=== PATIENT | female | born 1985 | race Caucasian/White ===

== ENCOUNTER 2020-09-16 11:59 | Outpatient (REF) | payer MEDICAID, SELFPAY | END 2020-09-16 12:00 | disposition home or self-care (01) | LOC: HO.LAB 11:59 | PROVIDERS: Visit Provider Internal Medicine | DX: Z20.822 Contact with and (suspected) exposure to COVID-19 (principal) | CPT/HCPCS: 36415; C9803; U0003 ==

== ENCOUNTER 2020-12-20 12:18 | Outpatient (REF) | payer MEDICAID, SELFPAY | END 2020-12-20 12:19 | disposition home or self-care (01) | LOC: HO.LAB 12:18 | PROVIDERS: Visit Provider Internal Medicine | DX: Z20.822 Contact with and (suspected) exposure to COVID-19 (principal) | CPT/HCPCS: C9803; U0003; U0005 ==

== ENCOUNTER 2023-08-23 13:58 | Outpatient (REF) | payer MEDICAID, SELFPAY ==
[2023-08-23 18:36] LABS: Influenza A PCR POSITIVE (Negative); Influenza B PCR NEGATIVE (Negative); Resp Syncy Virus RNA Qual PCR NEGATIVE (Negative); SARS COV2 PCR INHOUSE NEGATIVE (Negative)
== END 2023-08-23 13:59 | disposition home or self-care (01) ==
LOC: HO.CHCLNP 13:58
PROVIDERS: Visit Provider Family Medicine
DX: J11.1 Influenza due to unidentified influenza virus with other respiratory manifestations (principal); Z11.52 Encounter for screening for COVID-19
CPT/HCPCS: 0241U

== ENCOUNTER 2023-11-07 21:57 | Outpatient (REF) | payer MEDICAID, SELFPAY ==
[2023-11-08 04:40] LABS: Influenza A PCR NEGATIVE (Negative); Influenza B PCR NEGATIVE (Negative); Resp Syncy Virus RNA Qual PCR NEGATIVE (Negative); SARS COV2 PCR INHOUSE NEGATIVE (Negative)
== END 2023-11-07 21:58 | disposition home or self-care (01) ==
LOC: HO.HHCLNP 21:57
PROVIDERS: Visit Provider Emergency Medicine
DX: T78.3XXA Angioneurotic edema, initial encounter (principal); X58.XXXA Exposure to other specified factors, initial encounter; Y93.9 Activity, unspecified; Y92.9 Unspecified place or not applicable; Y99.9 Unspecified external cause status; Z11.52 Encounter for screening for COVID-19; Z20.828 Contact with and (suspected) exposure to other viral communicable diseases
CPT/HCPCS: 0241U; 87070

== ENCOUNTER 2023-12-11 11:06 | Outpatient (REF) | payer MEDICAID, SELFPAY ==
[2023-12-11 18:11] LABS: Alanine Aminotransferase 14 U/L (0-31); Albumin Level 4.3 g/dL (3.5-5.0); Alkaline Phosphatase 68 U/L (39-117); Anion Gap 9 (12-20); Aspartate Amino Transferase 15 U/L (5-31); Bilirubin Direct 0.1 mg/dL (0.0-0.5); Bilirubin Total 0.4 mg/dL (0.0-1.0); Blood Urea Nitrogen 15 mg/dL (9-16); Carbon Dioxide 27 mmol/L (22-29); Chloride 108 mmol/L (96-108); Cholesterol 157 mg/dL (<200); Estimated Glomerular Filt Rate > 60; Glucose Random 94 mg/dL (60-115); HDL Cholesterol 35 mg/dL (>40); LDL Cholesterol Calculated 107 mg/dL (<100); Potassium 3.6 mmol/L (3.3-5.1); Sodium 140 mmol/L (135-145); Thyroid Stimulating Hormone 1.75 uIU/mL (0.32-4.0); Triglycerides 75 mg/dL (<150)
[2023-12-12 08:28] LABS: ~HepC Num1 0.07 S/CO (0.00-0.79); ~Hepatitis C Antibody Nonreactive (Nonreactive)
[2023-12-14 21:13] LABS: HIV RNA PCR Qn Copies Not Detected Copies/mL; HIV RNA PCR Qn Log Copies Not Detected Log cps/mL
== END 2023-12-11 11:07 | disposition home or self-care (01) ==
LOC: HO.CHCLDS 11:06
PROVIDERS: Visit Provider Student in an Organized Health Care Education/Training Program
DX: Z00.00 Encounter for general adult medical examination without abnormal findings (principal); Z11.4 Encounter for screening for human immunodeficiency virus [HIV]; F41.9 Anxiety disorder, unspecified; F32.A Depression, unspecified
CPT/HCPCS: 36415; 80048; 80061; 80076; 84443; 86803; 87536; 87900

== ENCOUNTER 2024-10-06 11:50 | Outpatient (REF) | payer MEDICAID, SELFPAY ==
--- OUTSIDE RECORDS SUMMARY | 2024-10-06 13:05 | XMS_ITS | Encounter Summary ---
Author Organization [facility] Address [address] [place] [address] Care Team Providers Care Director Trust Name Role Phone Flavia Haile MD Primary Care Provider [phone] Reason for Visit * Auth/Cert (Routine) Specialty Diagnoses / Procedures Referred By Vee harrison Referred To Contact Diagnoses Mass of lower inner quadrant of right breast Fibroadenoma, right Mass of lower inner quadrant of right breast, Fibroadenoma, right Procedures MS EXC CYST/ABERRANT BREAST TISSUE OPEN MALE/FEMALE 1/> LESION Right breast wide local excision of palpable mass Herminio Richards MD [address] [place] [id number] Phone: tel: fax: [facility] [place] [address] [place] [phone] Phone: tel: Referral ID Status Reason Start Date Expiration Date Visits Re quested Visits Authorized [id number] 1 1 Encounter Details Date Type Department Care Team (Latest Contact Info) Description 09/17/2024 6:17 AM EST - 09/17/2024 10:45 AM EST Hospital Encounter [facility] [place] [address] [place] [phone] Herminio Richards MD [address] [place] [phone] Mass of lower inner quadrant of right breast Discharge Disposition: Home or Self Care Social History Tobacco Use Types Packs/Day Years Used Date Smoking Tobacco: Every Day Cigarettes 0.5 12.2 Started: 08/07/2012 Alcohol Use Standard Drinks/Week Comments Yes 0 (1 standard drink = 0.6 oz pur e alcohol) Socially, occasionally Interpersonal Safety Answer Date Record ed Physical Abuse 09/17/2024 Verbal Abuse 09/17/2024 Comments No Sex and Gender Information Value Date Recorded Sex Assigned at Female 09/08/2024 10:45 AM EST Legal Sex Female 5:12 PM EST Gender Identity Female 09/08/2024 10:45 AM EST Sexual Orientation Straight 09/08/2024 10 :45 AM EST documented as of this encounter Last Filed Vital Signs Vital Sign Reading Time Taken Comments Blood Pressure 110/71 09/17/2024 9:50 AM EST Pulse 64 09/17/2024 9:50 AM EST Temperature 36.5 ??C (97.7 ??F) 09/17/2024 9:50 AM ES T Respiratory Rate 16 09/17/2024 9:50 AM EST Oxygen Saturation 100% 09/17/2024 9:50 AM EST Inhaled Oxygen Concentration - - Weight 77.1 kg (170 lb) 08/26/2024 12:00 PM EST Height 160 cm (5' 3 ) 08/26/2024 12:00 PM EST Body Mass Index 30.11 08/26/2024 12:00 PM EST documented in this encounter Discharge Instructions * Discharge Instructions* Herminio Richards MD - 09/17/2024 9:24 AM EST Instructions After Breast Surgery: 1. Remove the outer clear Tegaderm dressing and the gauze after 48 hours but leave the Steri-Stripsat the incision until your scheduled postoperative appointment. 2. You may shower tomorrow with the dressing in place. Do not take a tub bath for 1 week. 3. For pain, take an [id number]-[id number] pain medication or fill prescriptions and take as directed. 4. Wear your bra for comfort for the first 48 hours as needed. It is normal for the area of the surgery to get bruised and/or hard. You may apply ice and heat for comfort as needed. 5. If any increase in pain, swelling, redness or other problem, please call . Follow-up for your appointment with Dr. Herminio Richards as previously scheduled. [facility] Herminio Richards MD [facility] [address] [place] [address] *Enter through [facility] and follow signs to Breast Center If you are unable to keep your appointment(s), please contact that office to reschedule. * Attachments The following attachments cannot be sent through Care Everywhere. * Breast Biopsy: Open: Post-op (Estonian) * General Anesthesia (Estonian) documented in this encounter Medications at Time of Discharge melatonin 10 mg capsule Take 1 capsule (10 mg total) by mouth at bedtime. 06/06/2024 buPROPion SR (WELLBUTRIN SR) 100 mg 12 hr tablet Take 150 mg by mouth 2 (two) times a day. Drysol Dab-O-Matic 20 % external solution Apply 2 mL topically at bedtime. 02/05/2024 FLUoxetine (PROzac) 10 mg capsule Take 1 capsule (10 mg total) by mouth 1 (one) time each day. 06/03/2024 levocetirizine (XYZAL) 5 mg tablet Take 1 tablet (5 mg total) by mouth 1 (one) time each day in the evening. acetaminophen (Tylenol Extra Strength) 500 mg tablet Take 1 tablet (500 mg total) by mouth every 6 (six) hours if needed for mild pain for up to 10 days. 40 tablet 09/17/2024 5 ibuprofen (ADVIL,MOTRIN) 400 mg tablet Take 1 tablet (400 mg total) by mouth every 6 (six) hours if needed for moderate pain for up to 10 days. 40 each 09/17/2024 5 documented as of this encounter Ordered Prescriptions Prescription Sig Dispense Quantity Refills Last Filled Start Date End Date ibuprofen (ADVIL,MOTRIN) 400 mg tablet Take 1 tablet (400 mg total) by mouth every 6 (six) hours if needed for moderate pain for up to 10 days. 40 each 09/17/2024 5 acetaminophen (Tylenol Extra Strength) 500 mg tablet Take 1 tablet (500 mg total) by mouth every 6 (six) hours if needed for mild pain for up to 10 days. 40 tablet 09/17/2024 5 documented in this encounter Discharge Disposition Disposition Code Departure Means Destination Comment s Home or Self Care documented in this encounter Progress Notes * Helena Echevarria RN - 09/17/2024 9:56 AM EST Ice applied documented in this encounter H&P Notes * Herminio Richards MD - 09/17/2024 7:27 AM EST CHIEF COMPLAINT: Right breast mass, biopsy demonstrating fibroadenoma HISTORY OF PRESENT ILLNESS: Ms. Evens Marcial is a 39 y.o. female who presents for surgical management of enlarging right breast mass with biopsy demonstrating fibroadenoma. The patient first appreciated a palpable lump in the lower inner right breast approximately October 2022. She presented to her primary care provider and diagnostic imaging was performed. Diagnostic mammogram on 01/11/2023 revealed an approximately 4 cm round mass with circumscribed margins at the 4 o'clock position of the right breast accounting for the palpable lump. This was new since prior mammography in 2018. Targeted ultrasound characterized a 3.9 x 1.6 x 3.3 cm round, solid mass with circumscribed margins at 4:00, 4 cm from the nipple. The mass was mildly heterogeneous, nearly isoechoic to fat lobules, and exhibited parallel orientation without significant posterior changes. The imaging features suggested a fibroadenoma, with Phyllodes tumor and ductal carcinoma also incl uded in the differential diagnosis. The patient had ultrasound-guided percutaneous biopsy of the mass on 01/17/2023. A wing tissue marker was placed at the biopsy site. 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 6-month follow-up ultrasound was recommended to evaluate for growth of the lesion. The patient appreciated an increase in the size of the palpable mass. She return for diagnostic mammogram and breast ultrasound on 02/26/2024. The mass had increased in size significantly. On ultrasound, the mass now measured 6 x 5.9 x 2.3 cm. There was a small cystic component which had also increased. There was vascularity seen within the lesion and no significant posterior changes. Given the significant increase in size of the breast mass, surgical excision was recommended. The patient is quite worried about the increase in size of the mass. She has discomfort, especiallywith her periods. She denies any skin changes, retraction of the skin, nipple discharge. Risk factors: -0-0-3 Menarche age 15 First live age 17 Regular menses, LMP July 2024 The patient did breast-feed her children Hormonal contraception with Mirena IUD currently, placed 6 years ago. ROS: As per HPI. The patient endorses sinus problems and insomnia. Remainder of comprehensive reiview of systems is negative as per intake sheet. PROBLEM LIST: Patient Active Problem List Diagnosis Date Noted Mass of lower inner quadrant of right breast 08/07/2024 Fibroadenoma, right 08/07/2024 PAST MEDICAL HISTORY: Medical History Past Medical History: Diagnosis Date Allergic sinusitis Anxiety Insomnia Tobacco dependence PAST SURGICAL HISTORY: Surgical History Past Surgical History: Procedure Laterality Date SECTION 2011 SOCIAL HISTORY: Social History Tobacco Use Smoking status: Every Day Current packs/day: 0.50 Average packs/day: 0.5 packs/day for 12.0 years (6.0 ttl pk-yrs) Types: Cigarettes Start date: 08/07/2012 Smokeless tobacco: Not on file Substance Use Topics Alcohol use: Yes Comment: Socially, occasionally FAMILY HISTORY: Family History Family History Problem Relation Name Age of Onset Colon cancer Paternal Grandfather Colon cancer Father's Sister ACTIVE MEDICATIONS: Medication list was reviewed and updated with the patient. No current facility-administered medications on file prior to encounter. Current Outpatient Medications on File Prior to Encounter Medication Sig Dispense Refill chlorhexidine (Hibiclens) 4 % external liquid Apply externally. Follow pre- operative instructions from doctor's office. Disp: 1 Bottle. 120 mL 0 melatonin 10 mg capsule Take 1 capsule (10 mg total) by mouth at bedtime. buPROPion SR (WELLBUTRIN SR) 100 mg 12 hr tablet Take 150 mg by mouth 2 (two) times a day. Drysol Dab-O-Matic 20 % external solution Apply 2 mL topically at bedtime. FLUoxetine (PROzac) 10 mg capsule Take 1 capsule (10 mg total) by mouth 1 (one) time each day. levocetirizine (XYZAL) 5 mg tablet Take 1 tablet (5 mg total) by mouth 1 (one) time each day in theening. ALLERGIES: Allergies No Known Allergies PHYSICAL EXAM: Visit Vitals BP 107/75 Pulse 79 Temp 36.6 ??C (97.9 ??F) Resp 16 Ht 1.6 m (63 ) Wt 77.1 kg (170 lb) LMP 08/27/2024 SpO2 99% BMI 30.11 kg/m?? OB Status Having periods Smoking Status Every Day BSA 1.8 m?? GENERAL: Awake, alert, and in no acute distress. HEAD: Normocephalic, atraumatic. EYES: Pupils equal and round. Anicteric sclera. Conjunctiva normal. EXTREMITIES: Warm, well-perfused. No edema. SKIN: Skin color, texture, turgor normal. Warm, no lesion or rash noted on visible skin. NEURO: Awake, alert and oriented. Cranial nerves are intact. Motor and sensory grossly intact. BREAST (FEMALE): Examined in the seated and upright positions. Breast are symmetric. LEFT: Examination of the left breast, nipple, areola and axilla are without abnormality. There are no palpable masses, nodules, skin changes, nipple discharge, or dimpling. RIGHT: Examination of the right breast notable for 6 well circumscribed mass at 4:00, 5 cm FN. The mass is firm, mobile, slightly tender. The nipple, areola and axilla are without abnormality. There are no skin changes, nipple discharge, or dimpling. LABS: Lab results, as listed below, were reviewed and discussed with the patient. 01/18/2023 Right breast, 4 o'clock, 4 cm from nipple, wing clip, ultrasound guided core biopsy: - FIBROADENOMA - No atypia or malignancy identified Lauren Tobar M.D. , Pathologist (Case electronically signed 01 18 2023) IMAGING: The following images were personally reviewed, including reports and associated films. Findings were discussed with the patient. [facility] - 02/26/24 - 1410 Report Status:Signed EXAM: [facility] EXAM DATE AND TIME: 02/26/2024 2:11 PM HISTORY: Patient states increase in size of previously biopsied fibroadenoma right breast. COMPARISON: 01/11/23, 12/23/18; right breast ultrasounds 01/17/23 (biopsy procedure), 01/11/23 TECHNIQUE: Bilateral digital breast tomosynthesis was performed in the CC and MLO projections. Computer aided detection with iCAPaomianba.[employer] 7.2-H and Qwiki 3D 3.1 was employed. Targeted ultrasound of the right breast was also performed, reported separately. TISSUE DENSITY: c: The breasts are heterogeneously dense, which may obscure small masses. FINDINGS: The previously biopsied fibroadenoma in the lower inner quadrant of the right breast contains a biopsy marker now and has increased in size to 5 x 6 x 5 cm compared to 4 x 4.5 x 3 cm in 2022. Targeted ultrasound confirms a significant increase in size of the solid, previously biopsied mass in the lower inner quadrant. No dominant mass or asymmetry is seen in the left breast. No suspicious grouped microcalcifications or areas of architectural distortion are seen. The skin and vascularity are unremarkable. IMPRESSION: 1. Significant increase in size of the previous study biopsied fibroadenoma in the lower inner quadrant of the right breast since 2022. Surgical referral for consideration of excision of this lesion is recommended. 2. Stable mammographic appearance of the left breast. No evidence of malignancy is seen. The findings and recommendations were discussed with the patient at the time of interpretation on 02/26/24. With the patient's consent, her contact information was forwarded to the [facility] nurse navigator to facilitate a surgical appointment. BI-RADS: Category 4: Suspicious RECOMMENDATION(S): 1: Surgical excision recommended RIGHT Dictating Physician: CHANDRIKA MEYERS MD Electronically Signed by: CHANDRIKA MEYERS MD Dic Date/Time: 02/26/24 1336 Sign date/Time: 02/26/24 1413 US Breast Uni Limited RT - 02/26/24 - Report Status:Signed History: Increase in size of the previously biopsied fibroadenoma right breast. Comparison: Right breast ultrasound 01/17/23 Findings: High resolution real-time imaging of the right breast was performed, targeted to the previously biopsied fibroadenoma at 4:00, 4 cm from the nipple. The solid mass with circumscribed, macrolobulated margins previously biopsied has increased significantly in size, now measuring 6.0 x 5.9 x 2.3 cm (4.1 x 3.8 x 1.7 cm in 2022. There is a small cystic component which has also increased. Vascularity is seen within the lesion by Doppler analysis. There are no significant posterior changes. Impression: Significant increase in size of a previously biopsied fibroadenoma in the lower inner quadrant of the right breast. Surgical referral for consideration of excision of this lesion is recommended. The findings and recommendations were discussed with the patient at the time of interpretation on 02/26/24. With her consent, her contact information was forwarded to the [facility] nurse navigator to facilitate a surgical appointment. BI-RADS 4: Suspicious Abnormality - Biopsy Should Be Considered [id number] Dictating Physician: CHANDRIKA MEYERS MD Electronically Signed by: CHANDRIKA MEYERS MD Dic Date/Time: 02/26/24 1408 Sign date/Time: 02/26/24 1411 [facility] - 01/11/23 - 1514 EXAM: [facility] EXAM DATE AND TIME: 01/11/2023 1:50 PM HISTORY: Palpable lump and pain 4:00 right breast. COMPARISON: 12/23/18 ([facility], [place], [place]) TECHNIQUE: CC and MLO views of both breasts were obtained using full field digital mammography. Bilateral digital breast tomosynthesis was performed in the MLO projection. Computer aided detection with Billiboxok 7.2-H and Qwiki 3D 3.1 was employed. Targeted right breast ultrasound was also performed, reported separately. TISSUE DENSITY: d: The breasts are extremely dense, which lowers the sensitivity of mammography. FINDINGS: Accounting for the palpable lump in the posterior 4:00 position of the right breast is an approximately 4 cm round mass with circumscribed margins, new from the previous study. No associated microcalcifications are seen. Targeted ultrasound confirms a solid mass, with features suggestive of a fibroadenoma, with phyllodes tumor and ductal carcinoma also included in the differential diagnosis. No dominant mass or asymmetry is seen in the left breast. No grouped microcalcifications or areas of architectural distortion are seen in either breast. The skin and vascularity are unremarkable. IMPRESSION: 1. 4 cm solid right breast mass, indeterminate, for which ultrasound-guided core biopsy is recommended. 2. Stable mammographic appearance of the left breast. No evidence of malignancy is seen. The findings and recommendations were discussed with the patient at the time of interpretation on 01/11/23. The biopsy procedure was scheduled. BI-RADS: Category 4: Suspicious RECOMMENDATION(S): 1: Needle biopsy recommended RIGHT [id number], [id number] Dictating Physician: CHANDRIKA MEYERS MD Electronically Signed by: CHANDRIKA MEYERS MD Dic Date/Time: 01/11/23 1501 Sign date/Time: 01/11/23 1518 US Breast Uni Limited RT - 01/11/23 - History: Palpable lump right breast for 2 months. Mammography reveals an approximately 4 cm round mass with circumscribed margins, new from 2019. z Findings: High resolution real-time imaging of the right breast was performed, targeted to the area of clinical concern as instructed by the patient. Accounting for the palpable lump, and the mammographic findings, is a 3.9 x 1.6 x 3.3 cm round, solid mass with circumscribed margins at 4:00, 4 cm from the nipple. The mass is very mildly heterogeneous, nearly isoechoic to fat lobules, at exhibits parallel orientation, and is without significant posterior changes. There is minimal internal vascularity by Doppler analysis. The imaging features suggest a fibroadenoma, with phyllodes tumor and ductal carcinoma also included in the differential diagnosis. Impression: 4 cm circumscribed solid mass in the 4:00 position of the right breast, accounting for the palpable and mammographic findings, indeterminate, for which ultrasound-guided core biopsy is recommended. The findings and recommendations were discussed with the patient at the time of interpretation on 01/11/23. The biopsy procedure was scheduled. BI-RADS 4: Suspicious Abnormality - Biopsy Should Be Considered [id number] Dictating Physician: CHANDRIKA MEYERS MD Electronically Signed by: CHANDRIKA MEYERS MD Dic Date/Time: 01/11/23 1513 Sign date/Time: 01/11/23 1517 US Bx Brst Perc 1st Lesion - 01/17/23 - 1014 HISTORY: Indeterminate 4 cm solid right breast mass. COMPARISON: Right breast ultrasound 01/11/23 FINDINGS: Note: This exam was performed with the assistance of a mashpee language path. Informed consent was obtained from the patient for ultrasound guided core biopsy of a known right breast mass. High resolution real time imaging of the right breast confirms a circumscribed 4.1 x 3.8 x 1.7 cm solid, circumscribed round mass at 4:00, 4 cm from the nipple. The right breast was marked and a timeout procedure was performed. The right breast was cleansed with Betadine and anesthetized with 2% lidocaine buffered with sodium bicarbonate. A small skin incision was made with a scalpel. Using real-time ultrasound guidance, a 12-gauge vacuum-assisted core biopsy needle was advanced to the edge of the lesion and fired. The retrieved specimen was placed immediately into formalin. A small metallic tissue marker (wing) was placed into the residual mass using real-time ultrasound guidance. Hemostasis was achieved. The skin incision was closed with Dermabond. The patient was instructed on wound care and given an ice pack. She tolerated the procedure well. No complications were noted. She left the Department in satisfactory condition. IMPRESSION: 1. Ultrasound guided vacuum-assisted core biopsy of 4 cm solid right breast mass, without apparent complication. A tissue marker (wing) was placed at the biopsy site. 2. Pathology results return fibroadenoma. No atypia or malignancy identified. The pathology findings are concordant with the imaging findings. Given the large size of the lesion, a follow-up ultrasound is recommended in 6 months to evaluate for growth. The findings and recommendations were discussed with the patient by telephone, through a mashpee language path, on 01/19/23. BI-RADS 2: Benign Finding [id number] Dictating Physician: CHANDRIKA MEYERS MD Electronically Signed by: CHANDRIKA MEYERS MD Dic Date/Time: 01/17/23 1019 Sign date/Time: 01/19/23 1355 ASSESSMENT AND PLAN: 1. Mass of lower inner quadrant of right breast 2. Fibroadenoma, right In summary, Ms. Evens Marcial is a 39 y.o. female with a 6 cm palpable right breast mass in the lower inner quadrant. This was biopsied in 2022 to demonstrate fibroadenoma. It has enlarged significantly since that time and has had some change in the appearance on ultrasound that raise concern forother pathology such as Reinaldo's tumor. The patient is symptomatic with tenderness of the breast mass. I have recommended surgical excision of the mass for therapeutic and diagnostic purposes. The procedure was described to entail wide local excision of the mass. Risks of surgery reviewed including bleeding, infection, seroma formation, change in sensation or appearance of the breast, anesthesia risks. The patient's questions were all addressed and surgical consent was signed in the office for: Rightbreast wide local excision of breast mass. Herminio Richards MD documented in this encounter Procedure Notes * Helena Echevarria RN - 09/17/2024 10:23 AM EST Went over all instructions with patient and spouse using video interpretor Dipika #[id number]. * Herminio Richards MD - 09/17/2024 8:15 AM EST OPERATIVE NOTE Date: 09/17/2024 Location: [facility] OR Name: Sincere Marcial, : 1985, Diagnosis Pre-op Diagnosis * Mass of lower inner quadrant of right breast [N63.14] * Fibroadenoma, right [D24.1] Post-op Diagnosis * Mass of lower inner quadrant of right breast [N63.14] * Fibroadenoma, right [D24.1] Procedures Right breast wide local excision of palpable mass (CPT 72107) Indications: Sincere Marcial is an 39 y.o. female who presents for surgical management of enlarging right breast mass with biopsy demonstrating fibroadenoma. The patient first appreciated a palpable lump in the lower inner right breast approximately October 2022. She presented to her primary care provider and diagnostic imaging was performed. Diagnostic mammogram on 01/11/2023 revealed an approximately 4 cm round mass with circumscribed margins at the 4 o'clock position of the right breast accounting for the palpable lump. This was new since prior mammography in 2019. Targeted ultrasound characterized a 3.9 x 1.6 x 3.3 cm round, solid mass with circumscribed margins at 4:00, 4 cm from the nipple. The mass was mildly heterogeneous, nearly isoechoic to fat lobules, and exhibited parallel orientation without significant posterior changes. The imaging features suggested a fibroadenoma, with Phyllodes tumor and ductal carcinoma also incl uded in the differential diagnosis. The patient had ultrasound-guided percutaneous biopsy of the mass on 01/17/2023. A wing tissue marker was placed at the biopsy site. 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 6-month follow-up ultrasound was recommended to evaluate for growth of the lesion. The patient appreciated an increase in the size of the palpable mass. She return for diagnostic mammogram and breast ultrasound on 02/26/2024. The mass had increased in size significantly. On ultrasound, the mass now measured 6 x 5.9 x 2.3 cm. There was a small cystic component which had also increased. There was vascularity seen within the lesion and no significant posterior changes. Given the significant increase in size of the breast mass, surgical excision was recommended. Surgeon(s) & Medical Care Evaluation Specialist(s) * Herminio Richards MD - Primary Anesthesia: General ASA: II Estimated Blood Loss: Minimal Drains: None Specimen: ID Source Type Tests Collected By Collected At Frozen? Priority Lab ID 1 Breast, Right Tissue TISSUE EXAM Herminio Richards MD 09/17/24 0826 Description: right breast tissue with clip painted green anterior/ blue inferior/ orange lateral/yellow medial/ black posterior/red superior Procedure Details: The patient was brought to the Operating Room and positioned in the supine position. A surgical pause was performed to verify the patient's identity, the correct site and procedure. Sequential compressive devices were placed prior to induction of anesthesia. The patient was given Cefazolin 2g for surgical prophylaxis prior to the start of the procedure. The patient was induced with general anesthesia via laryngeal mask airway without incident. The patient was then prepped and draped in the usual sterile fashion with ChloraPrep. A Time Out was performed prior to the start of the procedure. We then turned our attention to the right breast mass excision. The mass was palpated in the lower inner breast at around the 4:00 radian. A periareolar incision was made from approximately 3-5 o'clock. The overlying skin was infiltrated with a mixture of 1% lidocaine and 0.25% Marcaine. Skin flapswas then developed towards and around the mass. The incision was taken down to the deeper breast tissue. The mass was identified and was firm and well circumscribed with a somewhat lobular shape and measured about 6 cm in greatest dimension. The appearance was consistent with a fibroadenoma. The mass was grasped with a perforating towel clamp and elevated, and the dissected free of the surrounding breast tissue. The mass was amputated and removed. The specimen was oriented with 6 ink colors as follows: lateral-orange, inferior-blue, posterior-black, anterior-green, medial-yellow, superior-red. The specimen was sent to pathology in formalin for permanent section. The wound was then inspected, and hemostasis was achieved with electrocautery. Avitene Microfibrillar Collagen Hemostat was applied to the base of the surgical cavity for additional hemostasis. The wound was then closed with #3-0 Vicryl to bring together the deeper layers of the breast tissue. The subdermal layer was reapproximated with #3-0 Vicryl and a #4-0 Monocryl suture was used to close the skin in a subcuticular fashion. Steri-Strips were placed and a pressure dressing. The patient tolerated the procedure well. Sponge, instrument and needle counts were correct. The patient was awoken and taken to the Recovery Room in stable condition. I was scrubbed and present for the entire procedure. Findings: Firm, well circumscribed lobular mass in the lower inner breast measuring up to 6 cm in greatest dimension. Complications: None; patient tolerated the procedure well. Disposition: PACU - hemodynamically stable. Condition: Stable * Amber Roth RN - 09/17/2024 7:35 AM EST IV THERAPY PRESENT * Amber Roth RN - 09/17/2024 6:41 AM EST MASTER -SPOUSE [phone] documented in this encounter Plan of Treatment Upcoming Encounters Date Type Department Care Team (Late st Contact Info) Description 10/30/2024 9:40 AM EST Office Visit [facility] [place] [address] [place] [id number] Herminio Richards MD [address] [place] [address] documented as of this encounter Procedures Procedure Name Priority Date/Time Associated Diagnosis Comments TISSUE EXAM Routine 09/17/2024 8:26 AM EST Mass of lower inner quadrant of right breast MS EXC CYST/ABERRANT BREAST TISSUE OPEN MALE/FEMALE 1/> LESION 09/17/2024 7:52 AM EST Mass of lower inner quadrant of right breast Fibroadenoma, right Case Notes [facility] , URINE DIAGNOSTIC Routine 09/17/2024 6:45 AM EST documented in this encounter Results * Tissue exam (09/17/2024 8:26 AM EST) Final Diagnosis Right breast with wing clip, wide local excision: Complex fibroadenoma No atypia or malignancy identified 09/18/2024 5:16 PM EST [facility] Comment The presence of cysts greater than 3 mm, papillary apocrine metaplasia, and sclerosing adenosis, qualify this as a complex fibroadenoma. No atypical stromal changes are identified. Although green ink is focally on the surface of the fibroadenoma anteriorly, this is favored to represent ink carryover. The other margins are uninvolved. 09/18/2024 5:16 PM EST [facility] Gross Description A. Breast, Right, tissue with clip painted: Labeled right breast . Received in formalin, is a 80 g, 6.3 cm superior to inferior by 5.5 cm medial to lateral by 4.1 cm anterior to posterior solorzano-pink to yellow rubbery mass which is previously inked by the surgeon for orientation as below. The specimen is serially section from superior to inferior into 10 slices. The cut surfaces of the mass are white-pink, slightly fleshy, rubbery and lobular. A wing shaped biopsy clip is identified within slice seven. There is minimal peripheral attached adipose tissue. The mass abuts all margins. [employer] sections are submitted per diagram and as follows. Inking code: Blue-inferior Green-anterior Yellow-medial Black-posterior Red-superior [place]-lateral Summary of sections: 1, perpendicular superior margin, slice one, two pieces 2-7, slice two entirely submitted, one piece each 8-13, slice four entirely submitted, one piece each 14-19, slice seven entirely submitted (clip removed from this tissue), one piece each 20, perpendicular inferior margin, two pieces Time collected: 8:26 AM 09/17/2024 Time sliced and put in formalin: 10 AM 09/17/2024 Total cold ischemic time: 1.5 hours Time tissue exits final stage of formalin on tissue processor: 9 PM 09/17/2024 Total fixation time (ideally between 6 and 72 hours): Approximately 11 hours DELLA 09/18/2024 5:16 PM EST [facility] Disclaimer Unless otherwise specified, all tissue is 10% NB formalin fixed and paraffin embedded. 09/18/2024 5:16 PM EST [facility] Tissue Right breast structure / Unknown 09/17/2024 8:26 AM EST 09/17/2024 9:44 AM EST us Herminio Richards MD LAB PATHOLOGY ORDERABLES Final R esult [facility] [address] [place] [address], [place] [phone] * POC , urine manually resulted (09/17/2024 6:45 AM EST) HCG, Ur POC Negative Negative POC hCG Int QC Pass? Yes Yes Urine Urine specimen obtained by clean catch procedure / Unknown 09/17/2024 6:45 AM EST us Herminio Richards MD POINT OF CARE TEST ENTER/EDIT OR DERABLES Final Result documented in this encounter Visit Diagnoses Diagnosis Mass of lower inner quadrant of right breast Fibroadenoma, right documented in this encounter Admitting Diagnoses Diagnosis Mass of lower inner quadrant of right breast Fibroadenoma, right documented in this encounter Administered Medications Inactive Administered Medications - up to 3 most recent administrations Medication Order MAR Action Action Date Dose Rate Site acetaminophen (TYLENOL) tablet 1,000 mg 1,000 mg, oral, Once, On Sun09/17/24 at 0715, For 1 dose, Preprocedure Given 09/17/2024 7:01 AM EST 1,000 mg celecoxib (CeleBREX) capsule 200 mg 200 mg, oral, Once, On Sun09/17/24 at 0715, For 1 dose, Preprocedure Given 09/17/2024 7:01 AM EST 200 mg gabapentin (NEURONTIN) capsule 300 mg 300 mg, oral, Once, On Sun09/17/24 at 0715, For 1 dose, Preprocedure Given 09/17/2024 7:02 AM EST 300 mg lactated Ringer's infusion 75 mL/hr, intravenous, Continuous, Starting on Sun09/17/24 at 0715, Preprocedure New Bag 09/17/2024 8:20 AM EST 125 mL/hr oxyCODONE (ROXICODONE) immediate release tablet 5 mg 5 mg, oral, Every 4 hours PRN, moderate pain or when therapies for mild pain were not effective, Starting on Sun09/17/24 at 0926, For 2 doses, Recovery (only) Given 09/17/2024 9:31 AM EST 5 mg sodium chloride 0.9 % flush 10 mL 10 mL, intravenous, 2 times daily, First dose on Sun09/17/24 at 0900, Preprocedure sodium chloride 0.9 % flush 10 mL 10 mL, intravenous, As needed, line care, Starting on Sun09/17/24 at 0648, Preprocedure documented in this encounter Discontinued Medications Medication Sig Discontinue Reason Start Date End Da te chlorhexidine (Hibiclens) 4 % external liquid Apply externally. Follow pre-operative instructions from doctor's office. Disp: 1 Bottle. Stop Taking at Discharge 08/07/2024 09/17/2024 documented as of this encounter Active and Recently Administered Medications Times are shown in EST. Scheduled Medication Order 09/15/2024 09/16/2024 09/17/2024 acetaminophen (TYLENOL) tablet 1,000 mg (COMPLETED)(Linked Group 1) 1,000 mg, oral, Once, On Sun09/17/24 at 0715, For 1 dose, Preprocedure 0701 (Given - Provid er: Amber Roth RN) ceFAZolin (ANCEF) 2 g in sterile water 20 mL IV syringe (COMPLETED) 2 g, intravenous, Administer over 3 Minutes, Once, On Sun09/17/24 at 0715, For 1 dose, Preprocedure, -IV Push over 3 minutes -Administer within 60 minutes of incision, Indication: Prophylaxis-Surgical 0740 (Handoff - Prov ider: Amber Roth RN - Comment: YUKO FALL)0803 (New Bag - Provider: Yuko Titus CRNA) celecoxib (CeleBREX) capsule 200 mg (COMPLETED)(Linked Group 1) 200 mg, oral, Once, On Sun09/17/24 at 0715, For 1 dose, Preprocedure 0701 (Given - Provid er: Amber Roth RN) gabapentin (NEURONTIN) capsule 300 mg (COMPLETED)(Linked Group 1) 300 mg, oral, Once, On Sun09/17/24 at 0715, For 1 dose, Preprocedure 0702 (Given - Provid er: Amber Roth RN) sodium chloride 0.9 % flush 10 mL(Linked Group 2) 10 mL, intravenous, 2 times daily, First dose on Sun09/17/24 at 0900, Preprocedure 0900 (Canceled Entry - Provider: Automatic Discharge Provider - Comment: Automatically canceled at discontinue of medication order) Continuous Medication Order 09/15/2024 09/16/2024 09/17/2024 lactated Ringer's infusion 75 mL/hr, intravenous, Continuous, Starting on Sun09/17/24 at 0715, Preprocedure 0820 (New Bag - Prov ider: Yuko Titus CRNA)0846 (Anesthesia Volume Adjustment - Provider: Yuko Titus CRNA)1251 (Due: Stopped) PRN Medication Order 09/15/2024 09/16/2024 09/17/2024 bupivacaine (PF) (MARCAINE) 0.25 % injection (CANCELED) As needed, Starting on Sun09/17/24 at 0815, Intraprocedure 0815 (Given - Provid er: Herminio Richards MD) lidocaine (XYLOCAINE) 1 % injection (CANCELED) As needed, Starting on Sun09/17/24 at 0816, Intraprocedure 0816 (Given - Provid er: Herminio Richards MD) oxyCODONE (ROXICODONE) immediate release tablet 5 mg (CANCELED) 5 mg, oral, Every 4 hours PRN, moderate pain or when therapies for mild pain were not effective, Starting on Sun09/17/24 at 0926, For 2 doses, Recovery (only) 930 (Given - Provid er: Sara Villeda RN) sodium chloride 0.9 % flush 10 mL(Linked Group 2) 10 mL, intravenous, As needed, line care, Starting on Sun09/17/24 at 0648, Preprocedure Linked Groups Order Group 1: gabapentin (NEURONTIN) capsule 300 mg (COMPLETED)Jump to med 300 mg, oral, Once, On Sun09/17/24 at 0715, For 1 dose, Preprocedure And acetaminophen (TYLENOL) tablet 1,000 mg (COMPLETED)Jump to med 1,000 mg, oral, Once, On Sun09/17/24 at 0715, For 1 dose, Preprocedure And celecoxib (CeleBREX) capsule 200 mg (COMPLETED)Jump to med 200 mg, oral, Once, On Sun09/17/24 at 0715, For 1 dose, Preprocedure Group 2: Insert peripheral IV (CANCELED) STAT, Once, On Sun09/17/24 at 0649, For 1 occurrence, Preprocedure And Maintain IV access (CANCELED) Until discontinued, Starting on Sun09/17/24 at 0649, Until Specified, Preprocedure And Saline lock IV (CANCELED) Routine, Once, On Sun09/17/24 at 0649, For 1 occurrence, Preprocedure And sodium chloride 0.9 % flush 10 mLJump to med 10 mL, intravenous, 2 times daily, First dose on Sun09/17/24 at 0900, Preprocedure And sodium chloride 0.9 % flush 10 mLJump to med 10 mL, intravenous, As needed, line care, Starting on Sun09/17/24 at 0648, Preprocedure documented in this encounter Orders Medications Ordered That Sedrick ht Not Have Been Administered Count Last Ordered Date First Ordered Date acetaminophen (TYLENOL) tablet 650 mg albuterol 2.5 mg /3 mL (0.08 3 %) nebulizer solution 2.5 mg 09/17/2024 bupivacaine (PF) (MARCAINE) 0.25 % injection 09/17/2024 ceFAZolin (ANCEF) 2 g in brett rile water 20 mL IV syringe 1 09/17/2024 diphenhydrAMINE (BENADRYL) injection 25 mg 1 09/17/2024 HYDROmorphone (PF) injection 0.5 mg 1 09/17 lactated Ringer's infusion 2 09/17/2024 lidocaine (XYLOCAINE) 1 % injection 1 09/17 meperidine (PF) (DEMEROL) 25 mg/mL injection 12.5 mg 1 09/17/2024 ondansetron (PF) (ZOFRAN) injection 4 mg 1 09/17/2024 ondansetron ODT (ZOFRAN-ODT) disintegrating tablet 4 mg 1 09/17/2024 prochlorperazine (COMPAZINE) injection 10 mg 1 09/17/2024 prochlorperazine (COMPAZINE) suppository 25 mg 1 09/17/2024 prochlorperazine (COMPAZINE) tablet 10 mg 1 09/17/2024 sodium chloride 0.9 % flush 10 mL 2 025 Discharge Count Last Ordered Date First Orde red Date DISCHARGE PATIENT 1 09/17/2024 documented in this encounter Care Teams Director Trust Relationship Specialty Start Date End Date Flavia Haile MD [address] [place] [id number] PCP - General Family Medicine 09/08/24 documented as of this encounter
--- OUTSIDE RECORDS SUMMARY | 2024-10-06 13:06 | XMS_ITS | Encounter Summary ---
Author Organization [facility] Address [address] [place] [address] Care Team Providers Care Conductor Pullman Name Role Phone Flavia Haile MD Primary Care Provider [phone] Reason for Visit * Reason Comments Post-op Right breast excisio n Encounter Details Date Type Department Care Team (Late st Contact Info) Description 09/25/2024 9:00 AM EST Office Visit Breast Care Center [facility] [address] [place] [phone] Herminio Richards MD [address] [place] [address] Fibroadenoma of breast, right (Primary Dx) Social History Tobacco Use Types Packs/Day Years Used Date Smoking Tobacco: Every Day Cigarettes 0.5 12.2 Started: 08/07/2012 Tobacco Cessation:Ready to Q uit: Not Asked; Counseling Given: Not Answered Alcohol Use Standard Drinks/Week Comments Yes 0 [...] Sign Reading Time Taken Comments Blood Pressure 111/72 09/25/2024 9:12 AM EST Pulse 83 09/25/2024 9:12 AM EST Temperature 36.4 ??C (97.6 ??F) 09/25/2024 9:12 AM ES T Respiratory Rate - - Oxygen Saturation - - Inhaled Oxygen Concentration - - Weight 77.1 kg (170 lb) 09/25/2024 9:12 AM EST Height - - Body Mass Index 30.11 08/26/2024 12:00 PM EST documented in this encounter Progress Notes * Herminio Richards MD - 09/25/2024 9:00 AM EST Reason for visit: Post-op appointment - Right breast wide local excision of palpable mass on 09/17/2024 HPI: The patient presents for follow-up evaluation s/p the above procedure approximately 1 week ago. Doing well. Denies pain. Surgical site without swelling, redness, or drainage. Denies fevers, chills, sweats. Intraoperative findings: Firm, well circumscribed lobular mass in the lower inner breast measuring up to 6 cm in greatest dimension. Pathology: 09/17/2024 [id number] Final Diagnosis Right breast with wing clip, wide local excision: Complex fibroadenoma No atypia or malignancy identified at 1716 Comment The presence of cysts greater than 3 mm, papillary apocrine metaplasia, and sclerosing adenosis, qualify this as a complex fibroadenoma. No atypical stromal changes are identified. Although green ink is focally on the surface of the fibroadenoma anteriorly, this is favored to represent ink carryover. The other margins are uninvolved. HISTORY: Surgical history updated. No interval change in past medical history or social history. Active medication list reviewed. PHYSICAL EXAM: Visit Vitals BP 111/72 Pulse 83 Temp 36.4 ??C (97.6 ??F) (Temporal) Wt 77.1 kg (170 lb) LMP 08/27/2024 BMI 30.11 kg/m?? OB Status Having periods Smoking Status Every Day BSA 1.8 m?? The patient is awake, alert, and in no acute distress. Eyes are anicteric. Moist mucous membranes. The upper outer breast incision is healing well, clean dry and intact; no erythema or drainage. The extremities are warm and well-perfused. LABS: No recent labs. IMAGING: No pertinent imaging. ................................................................................ ............................................................. ASSESSMENT & PLAN: 1. Fibroadenoma of breast, right The patient is now s/p right breast wide local excision of palpable mass on 09/17/2024. Recovering well. Benign pathology findings reviewed. She will be discharged to resume her routine breast care. The patient will follow-up in my office as needed. It was a pleasure seeing Ms. Sincere Marcial at the [facility] today. The patient has been instructed to call with any additional questions or concerns. Herminio Richards MD [facility] [address] [address] CC: MD Venecia Henao MD documented in this encounter Plan of Treatment Upcoming Encounters Date Type Department Care Team (Late st Contact Info) Description 10/30/2024 9:40 AM EST Office Visit Breast Care [facility] [address] [place] [phone] Herminio Richards MD [address] [place] [address] [address] [place] [address] documented as of this encounter Visit Diagnoses Diagnosis Fibroadenoma of breast, right- Primary documented in this encounter Care Teams Conductor Pullman Relationship Specialty Start Date End Date Flavia Haile MD [address] [place] [id number] PCP - General Family Medicine 09/08/24 documented as of this encounter
--- OUTSIDE RECORDS SUMMARY | 2024-10-06 13:06 | XMS_ITS | Encounter Summary ---
Author Organization [employer] [facility] Address [address] [place] [address] Care Team Providers Care [employer] Crm Developer Name Role Phone Flavia Haile MD Primary Care Provider [phone] Encounter Details Date Type Department Care Team (Latest Contact Info) Description 01/22/2019 Abstract [facility] CONVERSIONS Dental, Provider, DDS Social History Tobacco Use Types Packs/Day Years Used Date Smoking Tobacco: Never Assessed Comments Unknown Sex and Gender Information Value Date Recorded Sex Assigned at Female 06/26/2022 10:29 AM EDT Legal Sex Female 10:29 AM EDT Gender Identity Female 06/26/2022 10:29 AM EDT Sexual Orientation Straight 06/26/2022 10 :29 AM EDT documented as of this encounter Plan of Treatment Not on file documented as of this encounter Visit Diagnoses Not on filedocumented in this encounter Care Teams [employer] Developer Relationship Specialty Start Date End Date Flavia Haile MD [address] [place] [id number] PCP - General Family Medicine 07/04/16 documented as of this encounter
--- OUTSIDE RECORDS SUMMARY | 2024-10-06 13:06 | XMS_ITS | Clinical Summary ---
Author Organization [facility] Address [address] [place] [address] Phone Care Team Providers Care Mat Worker Name Role Phone Flavia Haile MD Primary Care Provider [phone] Allergies No known active allergies Medications FLUoxetine (PROzac) 10 mg capsule Take 1 capsule (10 mg total) by mouth 1 (one) time each day. 06/03/20 24 Active buPROPion SR (WELLBUTRIN SR) 100 mg 12 hr tablet Take 150 mg by mouth 2 (two) times a day. Active melatonin 10 mg capsule Take 1 capsule (10 mg total) by mouth at bedtime. 06/06/20 24 Active Drysol Dab-O-Matic 20 % external solution Apply 2 mL topically at bedtime. 02/05/20 24 025 Active levocetirizine (XYZAL) 5 mg tablet Take 1 tablet (5 mg total) by mouth 1 (one) time each day in the evening. Active chlorhexidine (Hibiclens) 4 % external liquid Apply externally. Follow pre-operative instructions from doctor's office. Disp: 1 Bottle. 120 mL 08/07/20 24 025 Discontinu ed(Stop Taking at Discharge) acetaminophen (Tylenol Extra Strength) 500 mg tablet Take 1 tablet (500 mg total) by mouth every 6 (six) hours if needed for mild pain for up to 10 days. 40 tablet 09/17/19 25 025 Additional Information Patient taking differently:500 mg oral Every 6 hours PRN, mild pain,As needed, Reported on 09/25/2024 ibuprofen (ADVIL,MOTRIN) 400 mg tablet Take 1 tablet (400 mg total) by mouth every 6 (six) hours if needed for moderate pain for up to 10 days. 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 Resolved Problems Problem Noted Date Diagnosed Date Resolved Date Acute appendicitis with localized peritonitis 03/08/20 16 08/07/2024 Encounters Date Type Department Care Team Description 09/25/2024 9:00 AM EST Office Visit [address] [address] Herminio Richards MD Fibroadenoma of breast, right (Primary Dx) 09/17/2024 7:52 AM EST Anesthesia Event [facility] OR [address] [place] [phone] Bryson Baptiste MD TachoNae salmon, [facility] 09/17/2024 7:30 AM EST - 09/17/2024 9:15 AM EST Surgery [facility] OR [address] [place] [phone] Herminio Richards MD Right breast wide local excision of palpable mass [60681 (CPT??)] 09/17/2024 6:17 AM EST - 09/17/2024 10:45 AM EST Hospital Encounter [facility] OR [address] [place] [phone] Herminio Richards MD Mass of lower inner quadrant of right breast Discharge Disposition: Home or Self Care 08/07/2024 2:40 PM EST Consult [address] [address] Herminio Richards MD Mass of lower inner quadrant of right breast (Primary Dx); Fibroadenoma, right 07/16/2024 Telephone Breast [address] [phone] Hamida Rooney, RN Appointment from Last 3 Months Surgical History Surgery Date Site/Laterality Comments SECTION 2001, 2011 APPENDECTOMY SECTION, LOW TRANSVERSE BREAST MASS EXCISION 09/17/2024 Right Right breast wide local excision of palpable mass Medical History Medical History Date Comments Anxiety Insomnia Tobacco dependence Allergic sinusitis Family History Medical History Relation Name Comments Colon cancer Father's Sister Colon cancer Paternal Grandfather Relation Name Status Comments Father's Sister Paternal Grandfather Social History Tobacco Use Types Packs/Day Years [...] Orientation Straight 09/08/2024 10 :45 AM EST Obstetrics History Last Filed Vital Signs Vital Sign Reading Time Taken Comments Blood Pressure 111/72 09/25/2024 9:12 AM EST Pulse 83 09/25/2024 9:12 AM EST Temperature 36.4 ??C (97.6 ??F) 09/25/2024 9:12 AM ES T Respiratory Rate 16 09/17/2024 9:50 AM EST Oxygen Saturation 100% 09/17/2024 9:50 AM EST Inhaled Oxygen Concentration - - Weight 77.1 kg (170 lb) 09/25/2024 9:12 AM EST Height 160 cm (5' 3 ) 08/26/2024 12:00 PM EST Body Mass Index 30.11 08/26/2024 12:00 PM EST Plan of Treatment Upcoming Encounters Date Type Department Care Team (Late st Contact Info) Description 10/30/2024 9:40 AM EST Office Visit [facility] [address] [facility] [address] [place] [phone] Herminio Richards MD [address] [facility] [address] [place] [address] Health Maintenance Due Date Last Done Comments Hepatitis A Vaccines (1 of 2 - Risk 2-dose series) 2005 Hepatitis B Vaccines (1 of 3 - 19+ 3-dose series) 2005 Pneumococcal Vaccine: Pediatrics (0 to 5 Years) and At-Risk Patients (6 to 64 Years) (1 of 2 - PCV) 2005 DTaP,Tdap,and Td Vaccines (3 - Td or Tdap) 01/01/2017 07/04/2016, 08/05/2011 Cervical Cancer Screening: Pap Smear 12/04/2021 12/04/2018 HIV Screening 07/26/2022 Social Influencers of Health Screening 07/26/2022 Depression Screening 10/13/2023 10/13/2022 COVID-19 Vaccine ( season) 2024 09/13/2021, 02/02/2021, 01/08/2021 Cholesterol Screening (Lipid Panel) 12/10/2028 12/11/2023 Hepatitis C Screening Completed 12/11/2023 Influenza Vaccine Completed 06/10/2024, , 05/21/2019, Additional history exists HIB Vaccines Aged Out No longer eligi ble based on patient's age to complete this topic HPV Vaccines Aged Out No longer eligi ble based on patient's age to complete this topic IPV Vaccines Aged Out No longer eligi ble based on patient's age to complete this topic MMR Vaccines Aged Out No longer eligi ble based on patient's age to complete this topic Meningococcal ACWY Vaccine Aged Out N o longer eligible based on patient's age to complete this topic Meningococcal B Vacine Aged Out No lo nger eligible based on patient's age to complete this topic RSV Immunization Patients Under 20 months Aged Out No longer eligible based on patient's age to complete this topic Varicella Vaccines Aged Out No longer eligible based on patient's age to complete this topic Medical Devices Implanted Type Area Publication Editor Device Identifier Shelf Expiration Date Model / Serial / Lot Hemostat Flour Collgn 1gm Avitene - Sn/A - [id number] Implanted:Qty: 1 on 09/17/2024 by Herminio Richards MD at [facility] Hemostasis Right: Breast CR BARD - DAVOL DIV [id number] 06/23/2027 [id number] / N/A / [id number] Procedures Procedure Name Priority Date/Time Associated Diagnosis Comments TISSUE EXAM Routine 09/17/2024 8:26 AM EST Mass of lower inner quadrant of right breast TH AN LMA(NO CHARGE) Routine 09/17/2024 8:23 AM EST MN EXC CYST/ABERRANT BREAST TISSUE OPEN MALE/FEMALE 1/> LESION 09/17/2024 7:52 AM EST Mass of lower inner quadrant of right breast Fibroadenoma, right Case Notes CIVIL ENGINEERING PROJECT DESIGNER POC , URINE DIAGNOSTIC Routine 09/17/2024 6:45 AM EST CBC WITH AUTO DIFFERENTIAL Routine 09/08/2024 11:14 AM EST Mass of lower inner quadrant of right breast Fibroadenoma, right CBC AND DIFFERENTIAL Routine 09/08/2024 11:14 AM EST Mass of lower inner quadrant of right breast Fibroadenoma, right TYPE AND SCREEN Routine 09/08/2024 11:14 AM EST Mass of lower inner quadrant of right breast Fibroadenoma, right HM PAP SMEAR Routine 12/04/2018 from Last 3 Months or Most Recently Relevant to Health Maintenance Results * Tissue exam (09/17/2024 8:26 AM EST) Final Diagnosis Right breast with wing clip, wide local excision: Complex fibroadenoma No atypia or malignancy identified 09/18/2024 5:16 PM EST [facility] Comment The presence of cysts greater than 3 mm, papillary apocrine metaplasia, and sclerosing adenosis, qualify this as a complex fibroadenoma. No atypical stromal changes are identified. Although green ink is focally on the surface of the fibroadenoma anteriorly, this is favored to represent ink carryover. The other margins are uninvolved. 09/18/2024 5:16 PM EST [facility] Gross Description A. Breast, Right, tissue [...] adipose tissue. The mass abuts all margins. Grape Grower sections are submitted per diagram and as follows. Inking code: Blue-inferior Green-anterior Yellow-medial Black-posterior Red-superior Hartwick-lateral Summary of sections: 1, perpendicular superior margin, [...] 11 hours DELLA 09/18/2024 5:16 PM EST [facility] Disclaimer Unless otherwise specified, all tissue is 10% NB formalin fixed and paraffin embedded. 09/18/2024 5:16 PM EST [facility] Tissue Right breast structure / Unknown 09/17/2024 8:26 AM EST 09/17/2024 9:44 AM EST Herminio Richards MD LAB PATHOLOGY ORDERABLES Final R esult [facility] [address] [place] [address], * TH AN LMA(NO CHARGE) (09/17/2024 8:23 AM EST) Narrative Nae Titus CRNA - 09/17/2024 8:23 AM EST Nae Titus CRNA ? 09/17/2024 ??8:24 AM General Information and Staff Patient location during procedure: OR Performed: resident/HYPOID GEAR TESTER/CAA Performed by: Nae Titus CRNA Authorized by: Bryson Baptiste MD ?? Intubation Additional Comments Extra row of upper teeth. LMA downsized to 3, placed without difficulty Airway not difficult Urgency: elective Final Airway Details Number of attempts at approach: 1Final airway type: LMA Indications and Patient Condition Indications for airway management: anesthesia Preoxygenated: yes Soft Tissue Damage: No Dentition Unchanged: Yes Patient position: neutral MILS maintained throughout Mask difficulty assessment: 1 - vent by mask us Bryson Baptiste MD ANESTHESIA ORDERABLES Final Re sult * POC , urine manually resulted (09/17/2024 6:45 AM EST) [facility] HCG, Ur POC Negative Negative POC hCG Int QC Pass? Yes Yes Urine Urine specimen obtained by clean catch procedure / Unknown 09/17/2024 6:45 AM EST Herminio Richards MD POINT OF CARE TEST ENTER/EDIT OR DERABLES Final Result * (ABNORMAL) CBC auto differential (09/08/2024 11:14 AM EST) [facility] WBC 5.9 4.8 - 10.8 K/mcL LAB HEMETOLOGY METHOD 09/08/2024 12:47 PM EST [facility] RBC 4.00 3.80 - 4.80 M/mcL LAB HEMETOLOGY METHOD 09/08/2024 12:47 PM EST [facility] Hemoglobin 13.0 11.5 - 16.0 g/dL LAB HEMETOLOGY METHOD 09/08/2024 12:47 PM EST [facility] Hematocrit 39.4 35.0 - 47.0 % LAB HEMETOLOGY METHOD 09/08/2024 12:47 PM [facility] MCV 99.2(H) 79.0 - 98.0 FL LAB HEMETOLOGY METHOD 09/08/2024 12:47 PM [facility] MCH 32.7(H) 27.0 - 32.0 pcg LAB HEMETOLOGY METHOD 09/08/2024 12:47 PM [facility] MCHC 33.0 32.0 - 37.0 g/dL LAB HEMETOLOGY METHOD 09/08/2024 12:47 PM [facility] RDW 11.7 11.0 - 15.0 % LAB HEMETOLOGY METHOD 09/08/2024 12:47 PM [facility] Platelets 169 130 - 400 K/mcL LAB HEMETOLOGY METHOD 09/08/2024 12:47 PM [facility] MPV 12.5(H) 7.0 - 11.0 FL LAB HEMETOLOGY METHOD 09/08/2024 12:47 PM [facility] NRBC 0.0 <1.0 % LAB HEMETOLOGY METHOD 09/08/2024 12:47 PM [facility] NRBC Absolute 0.00 <0.10 K/mcL LAB HEMETOLOGY METHOD 09/08/2024 12:47 PM [facility] Neutrophils Relative 56.0 % LAB HEMETOLOGY METHOD 09/08/2024 12:47 PM [facility] Lymphocytes Relative 30.8 % LAB HEMETOLOGY METHOD 09/08/2024 12:47 PM [facility] Monocytes Relative 9.1 % LAB HEMETOLOGY METHOD 09/08/2024 12:47 PM [facility] Eosinophils Relative 3.0 % LAB HEMETOLOGY METHOD 09/08/2024 12:47 PM [facility] Basophils Relative 0.8 % LAB HEMETOLOGY METHOD 09/08/2024 12:47 PM EST [facility] Immature Granulocytes Relative 0.3 % LAB HEMETOLOGY METHOD 09/08/2024 12:47 PM [facility] Neutrophils Absolute 3.30 1.50 - 7.00 K/mcL LAB HEMETOLOGY METHOD 09/08/2024 12:47 PM [facility] Lymphocytes Absolute 1.82 1.00 - 5.00 K/mcL LAB HEMETOLOGY METHOD 09/08/2024 12:47 PM [facility] Monocytes Absolute 0.54 0.20 - 1.00 K/mcL LAB HEMETOLOGY METHOD 09/08/2024 12:47 PM [facility] Eosinophils Absolute 0.18 0.00 - 0.50 K/mcL LAB HEMETOLOGY METHOD 09/08/2024 12:47 PM [facility] Basophils Absolute 0.05 0.00 - 0.20 K/mcL LAB HEMETOLOGY METHOD 09/08/2024 12:47 PM [facility] Immature Granulocytes Absolute 0.02 0.00 - 0.03 K/mcL LAB HEMETOLOGY METHOD 09/08/2024 12:47 PM [facility] Blood Venous blood specimen / Unknown Venipuncture / Unknown 09/08/2024 11:14 AM EST 09/08/2024 11:50 AM EST us Herminio Richards MD LAB BLOOD ORDERABLES Final Resul t [facility] [address] [place] [address], * Type and screen (09/08/2024 11:14 AM EST) ABO Group O 09/08/2024 1:39 PM EST [facility] Rh Type Positive 09/08/2024 1:39 PM EST [facility] Antibody Screen Negative 09/08/2024 1:39 PM EST [facility] Blood Venous blood specimen / Unknown Venipuncture / Unknown 09/08/2024 11:14 AM EST 09/08/2024 11:49 AM EST Herminio Richards MD LAB BLOOD BANK TEST ORDERABLES F inal Result [facility] [address] [place] [address], [place] [phone] * Pap Smear (12/04/2018) Pap smear Abstracted, no interpretation Historical Provider HEALTH MAINTENANCE Final Result from Last 3 Months or Most Recently Relevant to Health Maintenance Insurance MEDICAID - [place] Advance Directives * Full Code - Default (Latest Code Status on File) Date Activated Date Inactivated Comments 09/17/2024 6:48 AM 09/17/2024 12:46 PM This is ord er is used when code status has not been discussed with the patient, or code status is otherwise unknown/unconfirmed To update the patient's code status, place a code status order. Do not modify or discontinue any currently active code status orders. Care Teams Mat Worker Relationship Specialty Start Date End Date Flavia Haile MD [address] [place] [id number] PCP - General Family Medicine 09/08/24
--- OUTSIDE RECORDS SUMMARY | 2024-10-06 13:06 | XMS_ITS | Encounter Summary ---
Author Organization [employer] Address [address] [facility] 7[address] [place] [address] Care Team Providers Care Wet Wheeler Name Role Phone Flavia Haile MD Primary Care Provider [phone] Reason for Visit * Reason Onset Date Comments Nurse Triage 09/08/2024 Encounter Details Date Type Department Care Team ([facility] st Contact Info) Description 09/08/2024 Telephone C [facility] [address] [place], [place] [phone] Flavia Haile MD [address] [place] [address] Nurse Triage Social History Tobacco Use Types Packs/Day Years Used Date Smoking Tobacco: Every Day Cigarettes Smokeless Tobacco: Never Alcohol Use Standard Drinks/Week Comments Yes 2 (1 standard drink = 0.6 oz pur e alcohol) Depression Answer Date Recorded Patient Health Questionnaire-9 Score 7 10/13/2022 Housing Stability Answer Date Recorded What is your housing situation today? I have mike eng 11/29/[address] you li ve. Do you have problems with any of the following? None of the above 11/29/2023 Food Insecurity Answer Date Recorded Within the past 12 months, y ou worried that your food would run out before you got money to buy more: Never True 11/29/2023 Within the past 12 months,th e food you bought just didn't last and you didn't have enough money to get more: Never True 11/2023 Transportation Answer Date Recorded In the past 12 months, has l ack of transportation kept you from medical appts, meetings, work or from getting things needed for daily living? No 11/29/2023 Utilities Answer Date Recorded In the past 12 months, has t he electric, gas, oil or water company threatened to shut off services in your home? No 11/29/2023 Depression Answer Date Recorded Patient Health Questionnaire-2 Score 2 10/13/2022 Comments No Sex and Gender Information Value Date Recorded Sex Assigned at Female 06/26/2022 10:29 AM EDT Legal Sex Female 10:29 AM EDT Gender Identity Female 06/26/2022 10:29 AM EDT Sexual Orientation Straight 06/26/2022 10 :29 AM EDT documented as of this encounter Miscellaneous Notes * Telephone Encounter - Ratna Caal RN - 09/08/2024 12:44 PM EST called pt to triage, spoke to pt through [facility] [employer] [facility]. pt states has had episodes of low BP in the past and had a low reading yesterday. pt states yesterday her BP was 107/67 and was advised that BP not low enough to cause any major symptoms. pt states has been lower than that in the past but she is worried because she has a planned surgery coming up. pt states intermittent dizziness,sweats, pallor, and tingling of hands and feet. pt denies current symptoms of low BP or other associated concerns. given appt 09/10 at 3:45 for exam and BP recheck. advised home care: rest, fluids, monitor BP as possible, lie down, and call back if worsening or new concerns. pt understands and agrees with plan. insurance shows active as connector care. Protocol Used: Blood Pressure - Low (Adult) Protocol-Based Disposition: See in Office or Video Visit within 3 Days Positive Triage Questions: * Brief weakness or lightheadedness after standing up or eating * Wants doctor to measure BP * All higher-acuity triage questions were negative Care Advice Discussed: * Reassurance and Education - Low (Diastolic) Blood Pressure * Fall Prevention * Reasons To Call Back - Lightheadedness, weakness, or dizziness occurs - Systolic BP under 90 - You feel sick - You become worse * Telephone Encounter - Whit Barone - 09/08/2024 11:58 AM EST Patient calling to report possible low blood pressure . States has been experiencing sweaty hand and feet, dizziness and finger numbness . Patient speaks Niuean. Advised triage nurse will call patient back. documented in this encounter Plan of Treatment Not on file documented as of this encounter Visit Diagnoses Not on filedocumented in this encounter Additional Health Concerns Assessment Noted Time PHQ-9 Depression Total Score: 7 10/13/19 23 11:17 AM EST documented as of this encounter Care Teams Wet Wheeler Relationship Specialty Start Date End Date Flavia Haile MD [address] [place] [phone] PCP - General Family Medicine 07/04/16 documented as of this encounter
--- OUTSIDE RECORDS SUMMARY | 2024-10-06 13:06 | XMS_ITS | Encounter Summary ---
Author Organization [employer] Address [address] [facility] [address] [place] [address] Care Team Providers Care Pilot Instructor Name Role Phone Flavia Haile MD Primary Care Provider [phone] Reason for Visit * Reason Onset Date Comments Referral 05/13/2024 Encounter Details Date Type Department Care Team ([facility] st Contact Info) Description 05/13/2024 Telephone [facility] MEDICINE [address] [place] [address] Flavia Haile MD [address] [place] [address] Referral Social History Tobacco Use Types Packs/Day Years [...] encounter Miscellaneous Notes * Telephone Encounter - Johnson Perez - 05/13/2024 10:56 AM EDT Tc from patient calling to request the status of the Physical Therapy referral that was discussed in last about engineering writer does not see anything generated documented in this encounter Plan of Treatment Not on file documented as of this encounter Visit Diagnoses Not on filedocumented in this encounter Additional Health Concerns Assessment Noted Time PHQ-9 Depression Total Score: 7 10/13/19 23 11:17 AM EST documented as of this encounter Care Teams Pilot Instructor Relationship Specialty Start Date End Date Flavia Haile MD [address] [place] [phone] PCP - General Family Medicine 07/04/16 documented as of this encounter
--- OUTSIDE RECORDS SUMMARY | 2024-10-06 13:06 | XMS_ITS | Encounter Summary ---
Author Organization [employer] Address [address] [facility] [address] [place] [address] Care Team Providers Care Feeder Catcher Tobacco Name Role Phone Flavia Haile MD Primary Care Provider [phone] Reason for Referral * Consultation (Routine) - Pending Review Specialty Diagnoses / Procedures Referred By Vee harrison Referred To Contact Breast Surgery Diagnoses Fibroadenoma of right breast Venecia Carty MD [address] [place] [address] Phone: tel: fax: [facility] [address] [place] [address] [address] [place] [address] Phone: tel: fax: Referral ID Status Reason Start Date Expiration Date Visits Requested Visits Authorized [id number] Pending Review Specialty Services Required 02/27/2024 02/26/2025 1 1 Encounter Details Date Type Department Care Team (Late st Contact Info) Description 02/27/2024 Orders Only [facility] [address] [place] [address] Venecia Carty MD [address] [place] [address] Fibroadenoma of right breast (Primary Dx) Social History Tobacco Use Types [...] as of this encounter Plan of Treatment Scheduled Referrals Name Type Priority Associated Diagnoses Orde r Schedule Referral to Breast Surgery Outpatient Referral Routine Fibroadenoma of right breast Expected: 02/27/2024 (Approximate), Expires: 02/26/2025 documented as of this encounter Visit Diagnoses Diagnosis Fibroadenoma of right breast- Primary documented in this encounter Additional Health Concerns Assessment Noted Time PHQ-9 Depression Total Score: 7 10/13/19 23 11:17 AM EST documented as of this encounter Care Teams Feeder Catcher Tobacco Relationship Specialty Start Date End Date Flavia Haile MD [address] [place] [phone] PCP - General Family Medicine 07/04/16 documented as of this encounter
--- OUTSIDE RECORDS SUMMARY | 2024-10-06 13:06 | XMS_ITS | Encounter Summary ---
Author Organization [employer] Address [address] [facility] [address] [place] [address] Care Team Providers Care Sales Support Associate Name Role Phone Flavia Haile MD Primary Care Provider [phone] Reason for Visit * Reason Comments Med Refill Encounter Details Date Type Department Care Team ([facility] st Contact Info) Description 05/22/2023 Refill [facility] [address] [place], [place] [phone] Venecia Carty MD [address] [place] [address] Social History Tobacco Use Types Packs/Day Years Used Date Smoking Tobacco: Every Day Cigarettes Smokeless Tobacco: Never Alcohol Use Standard Drinks/Week Comments Yes 2 (1 standard drink = 0.6 oz pur e alcohol) Depression Answer Date Recorded Patient Health Questionnaire-9 Score 7 10/13/2022 Depression Answer Date Recorded Patient Health Questionnaire-2 [...] documented as of this encounter Care Teams Sales Support Associate Relationship Specialty Start Date End Date Flavia Haile MD [address] [place] [address], [place] [address] PCP - General Family Medicine 07/04/16 documented as of this encounter
--- OUTSIDE RECORDS SUMMARY | 2024-10-06 13:06 | XMS_ITS | Encounter Summary ---
Author Organization [employer] Address [address] [place] [address] Care Team Providers Care Photo Tech Name Role Phone Flavia Haile MD Primary Care Provider [phone] Reason for Visit * Reason Onset Date Comments Chart Prep 09/09/2024 Encounter Details Date Type Department Care Team ([facility] st Contact Info) Description 09/09/2024 Telephone [facility] PED[facility] [address], [place] [phone] Flavia Haile MD [address] [place] [address] Chart Prep Social History Tobacco Use Types Packs/Day Years [...] encounter Miscellaneous Notes * Telephone Encounter - Bernadine Arciniega [place] - 09/09/2024 3:33 PM EST Chart Prep Labs: done Images: done Vaccines due: yes Referrals: n/a Screenings: pap smear , STI screening Overdue care gaps: Sbirt, PHQ-9 documented in this encounter Plan of Treatment Not on file documented as of this encounter Visit Diagnoses Not on filedocumented in this encounter Additional Health Concerns Assessment Noted Time PHQ-9 Depression Total Score: 7 10/13/19 23 11:17 AM EST documented as of this encounter Care Teams Photo Tech Relationship Specialty Start Date End Date Flavia Haile MD [address] [place] [address] PCP - General Family Medicine 07/04/16 documented as of this encounter
--- OUTSIDE RECORDS SUMMARY | 2024-10-06 13:06 | XMS_ITS | Encounter Summary ---
Author Organization [facility] Address [address] [place] [address] Care Team Providers Care Gis Analyst Developer Name Role Phone Flavia Haile MD Primary Care Provider [phone] Reason for Visit * Auth/Cert (Routine) Specialty Diagnoses / Procedures Referred By Vee harrison Referred To Contact Diagnoses Mass of lower inner quadrant of right breast Fibroadenoma, right Mass of lower inner quadrant of right breast, Fibroadenoma, right Procedures ID EXC CYST/ABERRANT BREAST TISSUE OPEN MALE/FEMALE 1/> LESION Right breast wide local excision of palpable mass Herminio Richards MD [address] [place] [address] Phone: tel: fax: [address] [address] Phone: tel: Referral ID Status Reason Start Date Expiration Date Visits Re quested Visits Authorized [id number] 1 1 Encounter Details Date Type Department Care Team (Late st Contact Info) Description 09/17/2024 7:30 AM EST - 09/17/2024 9:15 AM EST Surgery [facility] OR [address] [place] [phone] Herminio Richards MD [address] [place] [id number] Right breast wide local excision of palpable mass [57151 (CPT??)] Surgery Details Date/Time Status Location OR Service Patient Class Case Cl ass Case Type Trauma Case? 09/17/2024 7:30 AM Posted [facility] OR OR [address] [place] [address] Outpatient Surgery F - Elective Panel 1 Procedure LRB Anes Op Region Wound Class Comments Right breast wide local exci chetan of palpable mass Right general Breast Class I/ Clean Surgeon Surgeon Role Service Panel Herminio Richards MD Primary General 1 Case Notes DRUM ATTENDANT documented in this encounter Social History Tobacco Use Types Packs/Day Years [...] Sign Reading Time Taken Comments Blood Pressure 113/74 09/17/2024 9:15 AM EST Pulse 78 09/17/2024 9:15 AM EST Temperature 36.5 ??C (97.7 ??F) 09/17/2024 9:15 AM ES T Respiratory Rate 12 09/17/2024 9:15 AM EST Oxygen Saturation 99% 09/17/2024 9:15 AM EST Inhaled Oxygen Concentration - - [...] 1 week. 3. For pain, take an [id number] pain medication or fill prescriptions and take [...] with Dr. Herminio Richards as previously scheduled. [facility] Herminio Richards MD [facility] [address] [place] [address] *Enter through [facility] and follow signs to Breast Center If you are unable to keep your appointment(s), please contact that office to reschedule. * Attachments The following attachments cannot be sent through Care Everywhere. * Breast Biopsy: Open: Post-op (Citizen Of [place]) * General Anesthesia (Citizen Of [place]) documented in this encounter Medications at Time [...] Past Surgical History: Procedure Laterality Date SECTION 2001, 2011 SOCIAL HISTORY: Social History Tobacco Use [...] mouth 1 (one) time each day in [facility]. ALLERGIES: Allergies No Known Allergies PHYSICAL EXAM: [...] films. Findings were discussed with the patient. [facility] - 02/26/24 - 1410 Report Status:Signed EXAM: [facility] EXAM DATE AND TIME: 02/26/2024 2:11 PM HISTORY: Patient states increase in size of previously biopsied fibroadenoma right breast. COMPARISON: 01/11/23, 12/23/18; right breast ultrasounds 01/17/23 (biopsy procedure), 01/11/23 TECHNIQUE: Bilateral digital breast tomosynthesis was performed in the CC and MLO projections. Computer aided detection with [employer] 7.2-H and [employer] 3D 3.1 was employed. Targeted ultrasound of [...] her contact information was forwarded to the [facility] nurse navigator to facilitate a surgical [...] her contact information was forwarded to the [facility] nurse navigator to facilitate a surgical appointment. BI-RADS 4: Suspicious Abnormality - Biopsy Should Be Considered [id number] Dictating Physician: CHANDRIKA MEYERS MD Electronically Signed by: CHANDRIKA MEYERS MD Dic Date/Time: 02/26/24 1408 Sign date/Time: 02/26/24 1411 [facility] - 01/11/23 - 1514 EXAM: [facility] EXAM DATE AND TIME: 01/11/2023 1:50 PM HISTORY: Palpable lump and pain 4:00 right breast. COMPARISON: 12/23/18 ([facility], [place], [place]) TECHNIQUE: CC and MLO views of both breasts were obtained using full field digital mammography. Bilateral digital breast tomosynthesis was performed in the MLO projection. Computer aided detection with [employer] 7.2-H and [employer] 3D 3.1 was employed. Targeted right breast [...] Suspicious RECOMMENDATION(S): 1: Needle biopsy recommended RIGHT 73025, [id number] Dictating Physician: CHANDRIKA MEYERS MD Electronically [...] Suspicious Abnormality - Biopsy Should Be Considered [id number] Dictating Physician: CHANDRIKA MEYERS MD Electronically Signed by: CHANDRIKA MEYERS MD Dic Date/Time: 01/11/23 1513 Sign date/Time: 01/11/23 1517 US Bx Brst Perc 1st Lesion - 01/17/23 - 1014 HISTORY: Indeterminate 4 cm solid right breast mass. COMPARISON: Right breast ultrasound 01/11/23 FINDINGS: Note: This exam was performed with the assistance of a quileute camera storage clerk. Informed consent was obtained from the patient [...] with the patient by telephone, through a quileute camera storage clerk, on 01/19/23. BI-RADS 2: Benign Finding [id number] Dictating Physician: CHANDRIKA MEYERS MD Electronically Signed [...] with patient and spouse using video interpretor [employer] #[id number]. * Herminio Richards MD - 09/17/2024 8:15 AM EST OPERATIVE NOTE Date: 09/17/2024 Location: [facility] OR Name: Sincere Marcial, : 1985, Diagnosis Pre-op Diagnosis * Mass of lower inner quadrant of right breast [N63.14] * Fibroadenoma, right [D24.1] Post-op Diagnosis * Mass of lower inner quadrant of right breast [N63.14] * Fibroadenoma, right [D24.1] Procedures Right breast wide local excision of palpable mass (CPT 21848) Indications: Sincere Marcial is an 39 y.o. [...] mass, surgical excision was recommended. Surgeon(s) & Lens Marker(s) * Herminio Richards MD - Primary Anesthesia: [...] - 09/17/2024 6:41 AM EST MASTER -SPOUSE [phone] documented in this encounter Plan of Treatment Upcoming Encounters Date Type Department Care Team (Late st Contact Info) Description 10/30/2024 9:40 AM EST Office [facility] [place] [address] [place] [address] Herminio Richards MD [address] [place] [address] documented as of this encounter Procedures Procedure Name Priority Date/Time Associated Diagnosis Comments TISSUE EXAM Routine 09/17/2024 8:26 AM EST Mass of lower inner quadrant of right breast ID EXC CYST/ABERRANT BREAST TISSUE OPEN MALE/FEMALE 1/> LESION 09/17/2024 7:52 AM EST Mass of lower inner quadrant of right breast Fibroadenoma, right Case Notes DRUM ATTENDANT POC , URINE DIAGNOSTIC Routine 09/17/2024 6:45 AM EST documented in this encounter Results * Tissue exam (09/17/2024 8:26 AM EST) Final Diagnosis Right breast with wing clip, wide local excision: Complex fibroadenoma No atypia or malignancy identified 09/18/2024 5:16 PM EST [facility] Comment The presence of cysts greater than 3 mm, papillary apocrine metaplasia, and sclerosing adenosis, qualify this as a complex fibroadenoma. No atypical stromal changes are identified. Although green ink is focally on the surface of the fibroadenoma anteriorly, this is favored to represent ink carryover. The other margins are uninvolved. 09/18/2024 5:16 PM EST [facility]) [facility] Gross Description A. Breast, [...] adipose tissue. The mass abuts all margins. Flat Screen Worker sections are submitted per diagram and as follows. Inking code: Blue-inferior Green-anterior Yellow-medial Black-posterior Red-superior [place]-lateral Summary of sections: 1, perpendicular superior margin, [...] R esult [facility] [address] [place] [address], * POC , urine manually resulted (09/17/2024 [...] Given 09/17/2024 7:01 AM EST 1,000 mg bupivacaine (PF) (MARCAINE) 0.25 % injection As needed, Starting on Sun09/17/24 at 0815, Intraprocedure Given 09/17/2024 8:15 AM EST 20 mL celecoxib (CeleBREX) capsule 200 mg 200 mg, [...] Bag 09/17/2024 8:20 AM EST 125 mL/hr lidocaine (XYLOCAINE) 1 % injection As needed, Starting on Sun09/17/24 at 0816, Intraprocedure Given 09/17/2024 8:16 AM EST 10 mL oxyCODONE (ROXICODONE) immediate release tablet 5 mg [...] intravenous, As needed, line care, Starting on 1/22/25 at 0648, Preprocedure documented in this encounter [...] Comment: YUKO FALL)0803 (New Bag - Provider: Yuok Titus CRNA) celecoxib (CeleBREX) capsule 200 mg [...] at 0926, For 2 doses, Recovery (only) 0931 (Given - Provid er: Sara Villeda RN) [...] Ordered Date acetaminophen (TYLENOL) tablet 650 mg 1 albuterol 2.5 mg /3 mL (0.08 3 %) nebulizer solution 2.5 mg 1 09/17/2024 ceFAZolin (ANCEF) 2 g in brett rile water 20 mL IV syringe 1 09/17/2024 diphenhydrAMINE (BENADRYL) injection 25 mg 1 09/17/2024 HYDROmorphone (PF) injection 0.5 mg 1 09/17 lactated Ringer's infusion 2 09/17/2024 meperidine (PF) (DEMEROL) 25 mg/mL injection 12.5 [...] 09/17/2024 documented in this encounter Care Teams Gis Analyst Developer Relationship Specialty Start Date End Date Flavia Haile MD [address] [place] [address] PCP - General Family Medicine 09/08/24 documented as of this encounter
--- OUTSIDE RECORDS SUMMARY | 2024-10-06 13:06 | XMS_ITS | Encounter Summary ---
Author Organization [facility] Address [address] [place] [address] Care Team Providers Care Strainer Mill Operator Name Role Phone Flavia Haile MD Primary Care Provider [phone] Reason for Visit * Auth/Cert (Routine) Specialty Diagnoses / Procedures Referred By Vee harrison Referred To Contact Diagnoses Mass of lower inner quadrant of right breast Fibroadenoma, right Mass of lower inner quadrant of right breast, Fibroadenoma, right Procedures NH EXC CYST/ABERRANT BREAST TISSUE OPEN MALE/FEMALE 1/> LESION Right breast wide local excision of palpable mass Herminio Richards MD [address] [place] [address] Phone: tel: fax: [address] [address] Phone: tel: Referral ID Status Reason Start Date Expiration Date Visits Re quested Visits Authorized [id number] 1 1 Encounter Details Date Type Department Care Team (Late st Contact Info) Description 09/17/2024 7:52 AM EST Anesthesia Event [address] [address] Bryson Baptiste MD [address] [place] [address] Nae Titus, SMOKE CONTROL SUPERVISOR [address] [place] [address] Anesthesia Record Procedure Summary Procedure Name Responsible Anesthesiologist Anesthesia Start Time Anesthesia Stop Time Right breast wide local excision of palpable mass (Right: Breast) Bryson Baptiste MD 09/17/24 0752 09/17/24 0912 Events Date Time Event Comment 09/17/2024 0717 0752 An Start 0752 An Start Data The patient wa s reevaluated immediately before moderate or deep sedation use and before anesthesia induction. 0752 In Room 0800 An Induction 0801 An Intubation 0801 Anesthesia Ready 0815 Proc Start 0900 Proc Fin 0904 An Extubation 0904 an stop data 0906 Out of Room 0912 Handoff to RN I completed my handoff to the receiving nurse during which we: 1. Identified the patient 2. Identified the responsible provider 3. Reviewed the pertinent medical history 4. Discussed the surgical course 5. Reviewed intra-op anesthesia management and issues during anesthesia 6. Set expectations for post-procedure period 7. Allowed opportunity for questions and acknowledgement of understanding. 0912 An Stop Meds Name Total propofol (DIPRIVAN) injection 10 mg/mL 2 00 mg fentaNYL (SUBLIMAZE) injection 100 mcg ondansetron 2 mg/mL 4 mg midazolam (VERSED) injection 1 mg/mL 2 m g lidocaine PF (XYLOCAINE-MPF) local injec tion 2% 100 mg dexamethasone (DECADRON) injection 4 mg/ mL 8 mg ceFAZolin (ANCEF) 2 g in sterile water 2 0 mL IV syringe 2 g lactated Ringer's infusion 600 mL * Agents Name O2 N2O Air Sevoflurane Inspired Sevoflurane * Blood No blood administrations on file. Lines, Drains, and Airways Type Details Placement Removal Wound Incision; Breast; Lo wer, Right 09/17/24 0811 by Peripheral IV Placement Date: 09/17/24; Placement Time: 075; Catheter Size: 20 G (1? ); Orientation: Left, Posterior; Location: Hand; Site Prep: Chlorhexidine; Local Anesth: None; Inserted by: Mariela ; Insertion Attempts: 1; Removal Date: 09/17/24; Removal Time: 1038 09/17/24 0750 by Mariela Khalil RN 09/17/24 1038 by Helena Echevarria RN LMA 09/17/24; 08 (yanet kapoor via procedure documentation); 3; Classic; 09/17/24; 0904 09/17/24 0824 by Nae Titus CRNA 09/17/24 0904 by Nae Titus CRNA documented in this encounter Social History Tobacco [...] AM EST documented as of this encounter Progress Notes * Sonny Foley MD - 09/17/2024 9:12 AM EST Patient: Sincere Marcial Procedure Summary Date: 09/17/24 Room / Location: [facility] OR / [facility] OR Anesthesia Start: 751 Anesthesia Stop: 911 Procedure: Right breast wide local excision of palpable mass (Right: Breast) Diagnosis: Mass of lower inner quadrant of right breast Fibroadenoma, right (Mass of lower inner quadrant of right breast, Fibroadenoma, right) Surgeons: Herminio Richards MD Responsible Provider: Bryson Baptiste MD Anesthesia Type: general ASA Status: 2 Anesthesia Plan: general Last Vitals: Vitals Value Taken Time BP 114/69 09/17/24 0912 Temp 97.7 09/17/24 0912 Pulse 87 09/17/24 0912 Resp 16 09/17/24 0912 SpO2 100 09/17/24 0912 Pain Score: 0 - No pain Anesthesia Post Evaluation Patient location during evaluation: PACU Patient participation: complete - patient participated Level of consciousness: awake Pain management: adequate Airway patency: patent Anesthetic complications: no Cardiovascular status: acceptable Respiratory status: acceptable Hydration status: acceptable Comments: Patient seen and evaluated prior to discharge from PACU. Note may have been written at a later time due to clinical necessity. Nausea: No Vomiting: No There were no known notable events for this encounter. * Nae Titus CRNA - 09/17/2024 8:23 AM ESTAssociated Order(s): Intubation General Information and Staff Patient location during procedure: OR Performed: resident/SMOKE CONTROL SUPERVISOR/CAA Performed by: Nae Titus CRNA Authorized by: Bryson Baptiste MD Intubation Additional Comments Extra row of upper [...] difficulty assessment: 1 - vent by mask * Bryson Baptiste MD - 09/17/2024 7:15 AM EST 39 y.o. female scheduled for [NH EXC CYST/ABERRANT BREAST TISSUE OPEN MALE/FEMALE 1/> LES*] Ht Readings from Last 1 Encounters: 08/26/24 1.6 m (63 ) Wt Readings from Last 1 Encounters: 08/26/24 77.1 kg (170 lb) Body mass index is 30.11 kg/m??. Past Medical History: Diagnosis Date Allergic sinusitis Anxiety Insomnia Tobacco dependence Past Surgical History: Procedure Laterality Date APPENDECTOMY SECTION 2001, 2011 SECTION, LOW TRANSVERSE Denies anesthesia complications No Known Allergies No current facility-administered medications on file prior [...] mouth 1 (one) time each day in [facility] ([place], [place]). Current In-hospital Medications ceFAZolin, 2 g, intravenous, Once sodium chloride, 10 mL, intravenous, BID lactated Ringer's, 75 mL/hr PRN medications: Insert peripheral IV AND Maintain IV access AND Saline lock IV AND sodium chloride AND sodium chloride Social History Tobacco Use Smoking status: Every Day Current packs/day: 0.50 Average packs/day: 0.5 packs/day for 12.1 years (6.1 ttl pk-yrs) Types: Cigarettes Start date: 08/07/2012 Substance Use Topics Alcohol use: Yes Comment: Socially, occasionally Drug use: Not Currently Is the patient a current smoker (e.g. cigarette, cigar, pip, e-cigarette, or mariajuana)? Yes [x] No[] Patient previously instructed to abstain from smoking on the day of procedure? Yes [] No[] Patient smoked on the day of procedure? Yes [] No[] ASPIRE smoking VBR: [] Not interested in quitting [] Interested in quitting- referred to treatment [] Interested in quitting - treatment provided Visit Vitals BP 107/75 Pulse 79 Temp 36.6 ??C (97.9 ??F) Resp 16 Ht 1.6 m (63 ) Wt 77.1 kg (170 lb) SpO2 99% BMI 30.11 kg/m?? Smoking Status Every Day BSA 1.8 m?? Available cardiac studies reviewed: No results found. EKG No results found for this or any previous visit (from the past 4464 hour(s)). ECHO No results found for this or any previous visit. CATH No results found for this or any previous visit. LABS: Lab Results Component Value Date WBC 5.9 09/08/2024 HGB 13.0 09/08/2024 HCT 39.4 09/08/2024 MCV 99.2 (H) 09/08/2024 PLT 169 09/08/2024 No results found for: GLUCOSE , CALCIUM , NA , K , CO2 , CL , BUN , CREATININE No results found for: INR , PROTIME No results found for: PTT Denies cardiac, pulm, neuro, hepatic or renal s/sx. Patient meets ASA guidelines for NPO status. > 4 mets without anginal symptoms. Relevant labs, vitals, imaging, cardiac and pulmonary studies as well as HPI, Meds, Allergies, ROS,PMH, PSH, SH, and FH reviewed. Relevant Problems Other (+) Fibroadenoma, right Clinical information reviewed: Tobacco Allergies Meds Med Hx Surg Hx OB Status Fam Hx Soc Hx Anesthesia Plan ASA 2 Anesthesia Plan: general Anesthesia Risks Discussed dental injury, nausea, pain, sore throat, corneal abrasion, allergic reaction and serious complications Plan Factors Patient is not a current smoker Smoking cessation education has not been provided Induction method: intravenous Postoperative administration of opioids is intended. Anesthetic plan and risks discussed with patient and spouse. Use of blood products discussed with patient and spouse who. Anesthesia Plan discussed with SMOKE CONTROL SUPERVISOR. Anesthesia Evaluation Patient summary reviewed and Nursing notes reviewed Airway Mallampati: II Thyromental distance: > 3 finger breadths Neck ROM: fullnot intubatedno noted risk Dental Pulmonary breath sounds clear to auscultation Cardiovascular Rhythm: regular Rate: normal Neuro/Psych Mental Status: alert and oriented GI/Hepatic/Renal Endo/Other Abdominal Abdomen: soft. Bowel sounds: normal. PONV RISK SCORE: 1 Vitals: 08/26/24 1200 09/17/24 0647 BP: 107/75 Pulse: 79 Resp: 16 Temp: 36.6 ??C (97.9 ??F) SpO2: 99% Weight: 77.1 kg (170 lb) Height: 1.6 m (63 ) LMP: 08/27/2024 SpO2 Readings from Last 1 Encounters: 09/17/24 99% WBC Date Value Ref Range Status 09/08/2024 5.9 4.8 - 10.8 K/mcL Final RBC Date Value Ref Range Status 09/08/2024 4.00 3.80 - 4.80 M/mcL Final Hemoglobin Date Value Ref Range Status 09/08/2024 13.0 11.5 - 16.0 g/dL Final Hematocrit Date Value Ref Range Status 09/08/2024 39.4 35.0 - 47.0 % Final Platelets Date Value Ref Range Status 09/08/2024 169 130 - 400 K/mcL Final MCV Date Value Ref Range Status 09/08/2024 99.2 (H) 79.0 - 98.0 FL Final No Known Allergies STOP BANG: No data recorded NPO Status: Time of Last Liquid: 2199 Time of Last Solid: 2199 documented in this encounter Plan of Treatment Upcoming Encounters Date Type Department Care Team (Late st Contact Info) Description 10/30/2024 9:40 AM EST Office [facility] [place] [address] [place] [phone] Herminio Richards MD [address] [place] [address] documented as of this encounter Procedures Procedure Name Priority Date/Time Associated Diagnosis Comments TH AN LMA(NO CHARGE) Routine 09/17/2024 8:23 AM EST documented in this encounter Results * TH AN LMA(NO CHARGE) (09/17/2024 8:23 AM EST) Narrative Nae Titus CRNA - 09/17/2024 8:23 AM EST Nae Titus CRNA ? 09/17/2024 ??8:24 AM General Information and Staff Patient location during procedure: OR Performed: resident/SMOKE CONTROL SUPERVISOR/CAA Performed by: Nae Titus CRNA Authorized by: [...] Baptiste MD ANESTHESIA ORDERABLES Final Re sult documented in this encounter Visit Diagnoses Not on filedocumented in this encounter Administered Medications Inactive Administered Medications - up to 3 most recent administrations Medication Order MAR Action Action Date Dose Rate Site ceFAZolin (ANCEF) 2 g in sterile water 20 mL IV syringe 2 g, intravenous, Administer over 3 Minutes, Once, On Sun09/17/24 at 0715, For 1 dose, Preprocedure, -IV Push over 3 minutes -Administer within 60 minutes of incision, Indication: Prophylaxis-Surgical New Bag 09/17/2024 8:03 AM EST 2 g dexAMETHasone (DECADRON) injection intravenous, As needed, Starting on Sun09/17/24 at 0807, Anesthesia Intraprocedure Given 09/17/2024 8:07 AM EST 8 mg fentaNYL (PF) (SUBLIMAZE) injection intravenous, As needed, Starting on Sun09/17/24 at 0805, Anesthesia Intraprocedure Given 09/17/2024 8:32 AM EST 25 mcg Given 09/17/2024 8:18 AM EST 25 mcg Given 09/17/2024 8:05 AM EST 50 mcg lactated Ringer's infusion 75 mL/hr, intravenous, Continuous, Starting on Sun09/17/24 at 0715, Preprocedure New Bag 09/17/2024 8:20 AM EST 125 mL/hr lidocaine (PF) (XYLOCAINE-MPF) 2 % injection injection, As needed, Starting on Sun09/17/24 at 0759, Anesthesia Intraprocedure Given 09/17/2024 7:59 AM EST 100 mg midazolam (VERSED) injection intravenous, As needed, Starting on Sun09/17/24 at 0752, Anesthesia Intraprocedure Given 09/17/2024 7:52 AM EST 2 mg ondansetron (PF) (ZOFRAN) injection intravenous, As needed, Starting on Sun09/17/24 at 0807, Anesthesia Intraprocedure Given 09/17/2024 8:07 AM EST 4 mg propofoL (DIPRIVAN) injection intravenous, As needed, Starting on Sun09/17/24 at 0759, Anesthesia Intraprocedure Given 09/17/2024 7:59 AM EST 200 mg documented in this encounter Care Teams Strainer Mill Operator Relationship Specialty Start Date End Date Flavia Haile MD [address] [place] [address] PCP - General Family Medicine 09/08/24 documented as of this encounter
--- OUTSIDE RECORDS SUMMARY | 2024-10-06 13:07 | XMS_ITS | Encounter Summary ---
Author Organization [employer] Address [address] [facility] 7t [place] [address] Care Team Providers Care Logistics Center Manager Name Role Phone Flavia Haile MD Primary Care Provider [phone] Reason for Visit * Reason Onset Date Comments Nurse Triage 10/06/2024 Encounter Details Date Type Department Care Team ([facility] st Contact Info) Description 10/06/2024 Telephone [facility] [address] [place] [address] Flavia Haile MD [address] [place] [address] Nurse Triage Social History Tobacco Use Types Packs/Day Years Used Date Smoking Tobacco: Every Day Cigarettes Smokeless Tobacco: Never Alcohol Use Standard Drinks/Week Comments Yes 2 (1 standard drink = 0.6 oz pur e alcohol) Depression Answer Date Recorded Patient Health Questionnaire-9 Score 7 10/13/2022 Housing Stability Answer Date Recorded What is your housing situation today? I have mike neg 11/29/[address] you li [...] encounter Miscellaneous Notes * Telephone Encounter - Melissa Pascal, ANNMARIE - 10/06/2024 9:13 AM EST Triage call returned with BLS # [id number] Eda. Patient reports that she is having low back pain and pain in shoulders and arms bilaterally. Patient with recent surgical breast procedure and when returned to work had onset of pain. 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 Pain in from elbow upto shoulders and low back pain. No numbness of hands or feet. No loss of bladder. No urinary complai nts. Has been taking Tylenol since last Sunday and then took Diclofanac on Sunday and cyclobenzaprine on Sunday.No noted relief with pain. Disposition reviewed and patient in agreement with plan. Ask/ today at 1115am. Multiple (2) protocols were used on this call. Disposition for Call: See in Office or Video Visit within 3 Days Protocol Used: Arm Pain (Adult) Protocol-Based Disposition: See in Office or Video Visit within 3 Days Video visit not offered Positive Triage Question: * Moderate pain (e.g., interferes with normal activities) and present > 3 days * All higher-acuity triage questions were negative Care Advice Discussed: * Reasons To Call Back - Moderate pain (such as interferes with normal activities) lasts more than 3 days - Mild pain lasts more than 7 days - Arm swelling occurs - Signs of infection occur (such as spreading redness, warmth, fever) - You become worse Protocol Used: Back Pain (Adult) Protocol-Based Disposition: See in Office or Video Visit within 3 Days Video visit offer not recorded Positive Triage Questions: * Moderate back pain (e.g., interferes with normal activities) and present > 3 days * Patient wants to be seen * All higher-acuity triage questions were negative Care Advice Discussed: * Pain Medicines * Reasons To Call Back - Fever occurs - Numbness or weakness occurs - Loss of control of your bladder or bowel - Severe pain not better after taking pain medicines - Pain begins to shoot into the leg - Pain lasts over 2 weeks - Pain becomes worse - You become worse * Telephone Encounter - Jose Antonio Anaya - 10/06/2024 8:58 AM EST Symptom: Body Aches Outcome: Schedule an appointment to be seen within 3 days Reason: Caller denied all higher acuity questions The caller accepted this outcome. Pain Arms , shoulders, back Durations 5 x days Welsh speaking documented in this encounter Plan of Treatment Not on file documented as of this encounter Visit Diagnoses Not on filedocumented in this encounter Additional Health Concerns Assessment Noted Time PHQ-9 Depression Total Score: 7 10/13/19 23 11:17 AM EST documented as of this encounter Care Teams Logistics Center Manager Relationship Specialty Start Date End Date Flavia Haile MD [address] [place] [id number] PCP - General Family Medicine 07/04/16 documented as of this encounter
--- OUTSIDE RECORDS SUMMARY | 2024-10-06 13:07 | XMS_ITS | Encounter Summary ---
Author Organization [employer] Address [address] [facility] 7t [place] [address] Care Team Providers Care Rn Telehealth Name Role Phone Flavia Haile MD Primary Care Provider [phone] Encounter Details Date Type Department Care Team ([facility] st Contact Info) Description 09/10/2024 3:45 PM EST Office Visit [facility] MED & PEDS [address] [place], [place] [phone] Ab Pelaez MD [address] [place] [address] Anxiety (Primary Dx); Low blood pressure, not hypotension Social History Tobacco Use Types Packs/Day Years [...] AM EDT documented as of this encounter Last Filed Vital Signs Vital Sign Reading Time Taken Comments Blood Pressure 115/61 09/10/2024 4:12 PM EST Pulse 83 09/10/2024 4:12 PM EST Temperature 36.8 ??C (98.3 ??F) 09/10/2024 4:12 PM ES T Respiratory Rate 20 09/10/2024 4:12 PM EST Oxygen Saturation 98% 09/10/2024 4:12 PM EST Inhaled Oxygen Concentration - - Weight 77.1 kg (170 lb) 09/10/2024 4:12 PM EST Height 159.4 cm (5' 2.75 ) 09/10/2024 4:12 PM ES T Body Mass Index 30.35 09/10/2024 4:12 PM EST documented in this encounter Progress Notes * Ab Cast MD - 09/10/2024 3:45 PM EST Subjective Patient ID: Sincere Marcial is a 39 y.o. female who presents for No chief complaint on file.. HPI Patient was seen on office due to concerns for low blood pressure Review of Systems Constitutional: Negative for chills, fatigue and fever. Respiratory: Negative for cough and shortness of breath. Cardiovascular: Negative for chest pain and palpitations. Gastrointestinal: Negative for abdominal distention, blood in stool and constipation. Objective Physical Exam Constitutional: Appearance: Normal appearance. Cardiovascular: Rate and Rhythm: Normal rate and regular rhythm. Heart sounds: No murmur heard. Pulmonary: Effort: Pulmonary effort is normal. No respiratory distress. Breath sounds: No stridor. No wheezing or rhonchi. Neurological: General: No focal deficit present. Mental Status: She is alert and oriented to person, place, and time. Psychiatric: Mood and Affect: Mood normal. Behavior: Behavior normal. Assessment/Plan Problem List Items Addressed This Visit Anxiety - Primary Patient is undergoing a breast fibroadenoma removal and has been more anxious lately, she is being followed by therapist/psych, Relevant Orders TSH W/Reflex to FT4 Basic Metabolic Panel Other Visit Diagnoses Low blood pressure, not hypotension Her blood pressures have maintained stable, keep bp monitoring, Will send tsh/bmp documented in this encounter Plan of Treatment Scheduled Orders Name Type Priority Associated Diagnoses Orde r Schedule TSH W/Reflex to FT4 Lab Routine Anxiety Expected: 09/10/2024 (Approximate), Expires: 09/10/2025 Basic Metabolic Panel Lab Routine Anxiety Expected: 09/10/2024 (Approximate), Expires: 09/10/2025 documented as of this encounter Visit Diagnoses Diagnosis Anxiety- Primary Anxiety state, unspecified Low blood pressure, not hypotension Nonspecific low blood pressure reading documented in this encounter Additional Health Concerns Assessment Noted Time PHQ-9 Depression Total Score: 7 10/13/19 23 11:17 AM EST documented as of this encounter Care Teams Rn Telehealth Relationship Specialty Start Date End Date Flavia Haile MD [address] [place] [id number] PCP - General Family Medicine 07/04/16 documented as of this encounter
--- OUTSIDE RECORDS SUMMARY | 2024-10-06 13:07 | XMS_ITS | Encounter Summary ---
Author Organization [employer] Address [address] [facility] [address] 7[address] [place] [address] Care Team Providers Care Quill Stripper Name Role Phone Flavia Haile MD Primary Care Provider [phone] Encounter Details Date Type Department Care Team (Latest Contact Info) Description 09/10/2024 Travel Social History Tobacco Use Types Packs/Day Years Used Date Smoking Tobacco: Every Day Cigarettes Smokeless Tobacco: Never Alcohol Use Standard Drinks/Week Comments Yes 2 (1 standard drink = 0.6 oz pur e alcohol) Depression Answer Date Recorded Patient Health Questionnaire-9 Score 7 10/13/2022 Housing Stability Answer Date Recorded What is your housing situation today? I have mikesathish eng 11/29/[address] you [...] documented as of this encounter Care Teams Quill Stripper Relationship Specialty Start Date End Date Flavia Haile MD [address] [place] [address] PCP - General Family Medicine 07/04/16 documented as of this encounter
--- OUTSIDE RECORDS SUMMARY | 2024-10-06 13:07 | XMS_ITS | Encounter Summary ---
Author Organization [employer] Address [address] [facility] [address] 7[address] [place] [address] Care Team Providers Care Rn Cardiovascular Name Role Phone Flavia Haile MD Primary Care Provider [phone] Encounter Details Date Type Department Care Team (Latest Contact Info) Description 10/06/2024 Travel Social History Tobacco Use Types Packs/Day [...] as of this encounter Care Teams Rn Cardiovascular Relationship Specialty Start Date End Date Flavia Haile MD [address] [place] [address] PCP - General Family Medicine 07/04/16 documented as of this encounter
--- OUTSIDE RECORDS SUMMARY | 2024-10-06 13:07 | XMS_ITS | Encounter Summary ---
Author Organization [employer] Address [address] [place] [address] [address] [place] [address] Care Team Providers Care Maintenance And Custodian Supervisor Name Role Phone Flavia Haile MD Primary Care Provider [phone] Reason for Referral * Consultation (Routine) - Pending Review Specialty Diagnoses / Procedures Referred By Vee harrison Referred To Contact Physical Therapy Diagnoses Musculoskeletal pain Maurice Borrego CNP [address] [place] [address] Phone: tel: fax: Referral ID Status Reason Start Date Expiration Date Visits Requested Visits Authorized [id number] Pending Review Specialty Services Required 10/06/2024 10/06/2025 1 1 * Consultation (Routine) - Pending Review Specialty Diagnoses / Procedures Referred By Vee harrison Referred To Contact Orthopaedic Surgery Diagnoses Musculoskeletal pain Maurice Borrego CNP [address] [place] [address] Phone: tel: fax: Referral ID Status Reason Start Date Expiration Date Visits Requested Visits Authorized [id number] Pending Review Specialty Services Required 10/06/2024 10/06/2025 1 1 Encounter Details Date Type Department Care Team (Latest Contact Info) Description 10/06/2024 11:15 AM EST Office Visit [facility] CH[facility] MED & PEDS [address] [place] [address] Ab Pelaez MD [address] [place], [place] [phone] Musculoskeletal pain (Primary Dx) Social History Tobacco Use Types [...] Sign Reading Time Taken Comments Blood Pressure 134/82 10/06/2024 11:20 AM EST Pulse 84 10/06/2024 11:20 AM EST Temperature 36.3 ??C (97.4 ??F) 10/06/2024 11:[address] Respiratory Rate 20 10/06/2024 11:20 AM EST Oxygen Saturation - - Inhaled Oxygen Concentration - - Weight 78.9 kg (174 lb) 10/06/2024 11:20 AM EST Height 159.4 cm (5' 2.75 ) 10/06/2024 11:[address] Body Mass Index 31.07 10/06/2024 11:20 AM EST documented in this encounter Plan of Treatment Scheduled Orders Name Type Priority Associated Diagnoses Orde r Schedule XR Hip 2 or 3 Views Left Imaging Routine Musculoskeletal pain Expected: 10/06/2024, Expires: 10/06/2025 XR Hip 2 or 3 Views Right Imaging Routine Musculoskeletal pain Expected: 10/06/2024, Expires: 10/06/2025 XR Shoulder 2+ Views Left Imaging Routine Musculoskeletal pain Expected: 10/06/2024, Expires: 10/06/2025 XR Shoulder 2+ Views Right Imaging Routine Musculoskeletal pain Expected: 10/06/2024, Expires: 10/06/2025 Scheduled Referrals Name Type Priority Associated Diagnoses Order Schedule Referral to Orthopaedic Surgery Outpatient Referral Routine Musculoskeletal pain Expected: 10/06/2024 (Approximate), Expires: 10/06/2025 Referral to Physical Therapy Outpatient Referral Routine Musculoskeletal pain Expected: 10/06/2024 (Approximate), Expires: 10/06/2025 documented as of this encounter Visit Diagnoses Diagnosis Musculoskeletal pain- Primary Unspecified myalgia and myositis documented in this encounter Additional Health Concerns Assessment Noted Time PHQ-9 Depression Total Score: 7 10/13/19 23 11:17 AM EST documented as of this encounter Care Teams Maintenance And Custodian Supervisor Relationship Specialty Start Date End Date Flavia Haile MD [address] [place] [phone] PCP - General Family Medicine 07/04/16 documented as of this encounter
--- OUTSIDE RECORDS SUMMARY | 2024-10-06 13:07 | XMS_ITS | Clinical Summary ---
Author Organization [employer] Address [address] [facility] 7t [place] [address] Care Team Providers Care Assistant Women'S Soccer Coach Name Role Phone Flavia Haile MD Primary Care Provider [phone] Allergies No known active allergies Medications albuterol (2.5 MG/3ML) 0.083% nebulizer solution Inhale 3 mL every 8 (eight) hours. 12/08/19 21 Active azelastine (Astelin) 0.1 % nasal sprayIndicatio ns:Allergy, sequela Administer 2 sprays into each nostril 2 times daily. Use in each nostril as directed 30 mL 2 09/04/19 23 Active fluticasone (Flovent HFA) 110 MCG/ACT inhalerIndicat ions:Allergy, sequela Inhale 1 puff every 12 (twelve) hours. 12 g 2 09/04/19 23 Active albuterol (ProAir HFA) 108 (90 Base) MCG/ACT inhalerIndicat ions:Allergy, sequela Inhale 2 puffs every 4 (four) hours if needed for wheezing. 18 g 1 09/04/19 23 Active Omeprazole 20 MG tablet delayed-releas eIndications:G astroesophagea l reflux disease without esophagitis Take 20 mg by mouth in the morning. 30 tablet 11 10/13/19 23 Active famotidine (Pepcid) 40 MG tablet TAKE 1 TABLET BY MOUTH EVERY DAY AT BEDTIME 90 tablet 3 12/27/19 23 Active nicotine (Nicoderm CQ) 14 MG/24HR patch Place 1 patch on the skin 1 (one) time each day at the same time. 42 patch 11/07/19 24 Active nicotine (Nicoderm CQ) 7 MG/24HR patch Place 1 patch on the skin 1 (one) time each day at the same time. 14 patch 11/07/19 24 Active nicotine polacrilex (Commit) 2 MG lozenge Dissolve 1 lozenge (2 mg) in the mouth if needed for smoking cessation. 100 lozenge 11/07/19 24 Active Ketotifen Fumarate 0.035 % solution Administer 1 drop into affected eye(s) if needed in the morning and at bedtime (eye redness, itching). 10 mL 2 11/07/19 24 Active loratadine (Claritin) 10 MG tablet Take 1 tablet (10 mg) by mouth in the morning. 30 tablet 5 11/07/19 24 025 Active EPINEPHrine (Epipen) 0.3 MG/0.3ML injection syringe Inject 0.3 mL (0.3 mg) as directed 1 (one) time if needed for anaphylaxis. Inject into upper leg. Call 911 after use. 2 each 11/07/19 24 025 Active diphenhydrAMIN E (Banophen) 25 MG capsuleIndicat ions:Allergy, sequela TAKE ONE CAPSULE BY MOUTH EVERY NIGHT AT BEDTIME NEEDED FOR ALLERGIES 30 capsule 3 11/27/19 24 Active buPROPion SR (Wellbutrin SR) 100 MG 12 hr tablet TAKE 1 TABLET BY MOUTH IN THE MORNING AND AT 2 PM 11/05/19 24 Active aluminum chloride (Drysol) 20 % external solutionIndica tions:Hyperhid rosis Apply topically at bedtime. To use at bedtime to the affected areas. 60 mL 11 02/05/20 24 025 Active cyclobenzaprin e (Flexeril) 10 MG tablet Take 1 tablet (10 mg) by mouth 3 times daily for 10 days. 30 tablet 05/09/20 24 Active Semaglutide-We ight Management (Wegovy) 0.25 MG/0.5ML solution auto-injectorI ndications:Obe sity (BMI 30.0-34.9) Inject 0.25 mg as directed 1 (one) time per week. 0.5 mL 3 06/10/20 24 Active ergocalciferol (Vitamin D2) 1.25 MG (11793 UT) capsule Take 1 capsule (1.25 mg) by mouth 1 (one) time per week. 5 capsule 3 06/10/20 24 Active meloxicam (Mobic) 15 MG tabletIndicati ons:Musculoske letal pain Take 1 tablet (15 mg) by mouth Once per day. 30 tablet 3 10/06/19 25 025 Active Diclofenac Sodium (Voltaren) 1 % gelIndications :Musculoskelet al pain Use topical BID 100 g 3 10/06/19 25 Active diclofenac (Cataflam) 50 MG tabletIndicati ons:Fibroadeno ma of right breast TAKE 1 TABLET BY MOUTH TWICE DAILY NEEDED 60 tablet 02/12/20 24 025 Discontinued(In effective) Diclofenac Sodium (Voltaren) 1 % gel Use topical BID 100 g 3 05/09/20 24 025 Discontinued(Re order (will not trigger notification to Pharmacy)) ibuprofen 800 MG tabletIndicati ons:Musculoske letal neck pain Take 1 tablet (800 mg) by mouth 3 times daily. 90 tablet 05/09/20 24 025 Discontinued(In effective) Active Problems Problem Noted Date Diagnosed Date Tobacco dependence 11/07/2023 Influenza 08/23/2023 Assessment & Plan (08/23/2023 11:43 AM EST): Upon visit, patient was tested for Influenza: results were POSITIVE. As a result, patient will be provided with medications to treat symptoms. Rap. COVID Test: Negative. Musculoskeletal neck pain 08/23/2023 Overview (08/23/2023): Started on Short course of Flexeril Advised warm compress and Stretching exercises Advised topical bengay Assessment & Plan (08/23/2023 11:43 AM EST): Medication refill of Ibuprofen will be provided. Anxiety 10/13/2022 Allergies 09/04/2022 Encounters Date Type Department Care Team Description 10/06/2024 11:15 AM EST Office Visit [facility] MED & PEDS [address] [place] [address] Ab Pelaez MD Musculoskeletal pain (Primary Dx) 10/06/2024 Travel 10/06/2024 Telephone [facility] [address] [facility] [place] [address] Flavia Haile MD Nurse Triage 09/10/2024 3:45 PM EST Office Visit [facility] MED & PEDS [address] [place] [address] Ab Pelaez MD Anxiety (Primary Dx); Low blood pressure, not hypotension 09/10/2024 Travel 09/09/2024 Telephone [facility] MED & PEDS [address] [place] [address] Flavia Haile MD Chart Prep 09/08/2024 Telephone [facility] MED & PEDS [address] [place], [place] [phone] Flavia Haile MD Nurse Triage from Last 3 Months Immunizations Name Administration Dates Next Due Influenza injectable quadriv alent IIV4 with preservative 07/04/2016 Influenza injectable quadriv alent preservative free 06/30/2021,05/21/2019 Influenza, IIV3, injectable 05/16/2011 Influenza, seasonal, injecta ble, preservative free 06/10/2024,05/16/2011 Pfizer Covid-19 Vaccine 12+ 09/13/2021,,01/08/2021 Tdap 07/04/2016,08/05/2011 Social History Tobacco Use Types Packs/Day Years Used Date Smoking Tobacco: Every Day Cigarettes Smokeless Tobacco: Never Tobacco Cessation:Ready to Q uit: Not Asked; Counseling Given: Not Answered Alcohol Use Standard Drinks/Week Comments Yes 2 (1 standard drink = 0.6 oz pur e alcohol) Depression Answer Date Recorded Patient Health Questionnaire-9 Score 7 10/13/2022 Housing Stability Answer Date Recorded What is your housing situation today? I have mike albertina 11/29/[address] you li [...] Orientation Straight 06/26/2022 10 :29 AM EDT Last Filed Vital Signs Vital Sign Reading Time Taken Comments Blood Pressure 134/82 10/06/2024 11:20 AM EST Pulse 84 10/06/2024 11:20 AM EST Temperature 36.3 ??C (97.4 ??F) 10/06/2024 11:[address] Respiratory Rate 20 10/06/2024 11:20 AM EST Oxygen Saturation 98% 09/10/2024 4:12 PM EST Inhaled Oxygen Concentration - - Weight 78.9 kg (174 lb) 10/06/2024 11:20 AM EST Height 159.4 cm (5' 2.75 ) 10/06/2024 11:[address] Body Mass Index 31.07 10/06/2024 11:20 AM EST Plan of Treatment Health Maintenance Due Date Last Done Comments HIV Screening 1986 Alcohol/Substance Use Screening 1998 Family Planning (PISQ) 2001 Hepatitis A Vaccines (1 of 2 - Risk 2-dose series) 2005 Hepatitis B Vaccines (1 of 3 - 19+ 3-dose series) 2005 Pneumococcal Vaccine: Pediatrics (0 to 5 Years) and At-Risk Patients (6 to 49) Years) (1 of 2 - PCV) 2005 Pap Smear 2007 Cervical Cancer Screening 2016 HPV/Cotest 2016 Depression Screening 10/13/2023 10/13/2022, 10/13/19 23 COVID-19 Vaccine ( season) 2024 09/13/2021, 02/02/2021, 01/08/2021 SDOH Screening 11/28/2024 11/29/2023 Tobacco Screening 05/09/2025 05/09/2024 DTaP/Tdap/Td Vaccines (3 - Td or Tdap) 07/04/2026 07/04/2016, 08/05/2011 Lipid Panel 12/10/2028 12/11/2023, 10/13/2022 Zoster Vaccines (1 of 2) 2036 RSV Patients and Patients Aged 60 years or older (1 - 1-dose 75+ series) 2061 Hepatitis C Screening Completed 12/11/2023 Influenza Vaccine Completed 06/10/2024, , 05/21/2019, Additional history exists HIB Vaccines Aged Out No longer eligi ble based on patient's age to complete this topic HPV Vaccines Aged Out No longer eligi ble based on patient's age to complete this topic IPV Vaccines Aged Out No longer eligi ble based on patient's age to complete this topic Meningococcal Vaccine Aged Out No alicia lexii eligible based on patient's age to complete this topic RSV under 20 months Aged Out No longe r eligible based on patient's age to complete this topic Rotavirus Vaccines Aged Out No longer eligible based on patient's age to complete this topic Procedures Procedure Name Priority Date/Time Associated Diagnosis Comments HEPATITIS C AB W/REFL TO HCV RNA, QN, PCR Routine 12/11/2023 11:09 AM EDT PE (physical exam), annual LIPID PANEL, STANDARD Routine 12/11/2023 11:09 AM EDT Anxiety from Last 3 Months or Most Recently Relevant to Health Maintenance Results * Hepatitis C Antibody with Reflex to HCV, RNA, Quantitative, Real-Time PCR (12/11/2023 11:09 AM EDT) Hepatitis C Antibody Nonreactive Nonreactive [facility] Comment:Antibodies to HCV no t detected; does not exclude early acuteHCV infection. Blood Venous blood specimen / Unknown 12/11/2023 11:09 AM EDT 12/11/2023 2:26 PM EDT Flavia Haile MD LAB BLOOD ORDERABLES Final Resul t Performing Organization Address [facility] de Phone Number [facility] [address] [place] [phone] * (ABNORMAL) Lipid Panel, Standard (12/11/2023 11:09 AM EDT) Triglycerides 75 <150 mg/dL [facility] Comment:Desirable Triglyceri de: less than 150 mg/dLBorderline High Triglyceride 150-199 mg/dLHigh Triglyceride: 200-499 mg/dLVery High Triglyceride: greater than or equal to 5OO mg/dL Cholesterol 157 <200 mg/dL [facility] Comment:Desirable Cholestero l: less than 200 mg/dLBorderline High Cholesterol: 200-239 mg/dLHigh Cholesterol: greater than 239 mg/dL LDL Cholesterol Calculated 107(H) <100 mg/dL [facility] Comment:Desirable LDL: less than 100 mg/dLNear Optimal/Above Optimal LDL: 110- 129 mg/dLBorderline High LDL: 130-159 mg/dLHigh LDL: 160-189 mg/dLVery High LDL: greater than or equal to 190 mg/dL HDL Cholesterol 35(L) >40 mg/dL [facility] Comment:Desirable HDL: great er than 40 mg/dL Note: This HDL assay may give artificially low results in patients with liver disease. Blood Venous blood specimen / Unknown 12/11/2023 11:09 AM EDT 12/11/2023 2:26 PM EDT us Flavia Haile MD LAB BLOOD ORDERABLES Final Resul t Performing Organization Address [facility] Co de Phone Number [facility] [address] [place] [phone] from Last 3 Months or Most Recently Relevant to Health Maintenance [facility] OTHER Care Teams Assistant Women'S Soccer Coach Relationship Specialty Start Date End Date Flavia Haile MD [address] [place] [phone] PCP - General Family Medicine 07/04/16
[2024-10-06 14:29] LABS: Anion Gap 10 (12-20); Blood Urea Nitrogen 12 mg/dL (9-16); Calcium 8.9 mg/dL (8.4-10.2); Carbon Dioxide 26 mmol/L (22-29); Chloride 112 mmol/L (96-108); Estimated Glomerular Filt Rate > 60; Glucose Random 84 mg/dL (60-115); Potassium 3.9 mmol/L (3.3-5.1); Sodium 144 mmol/L (135-145)
[2024-10-06 14:46] LABS: TSH reflex Free T4 1.62 uIU/mL (0.32-4.0)
== END 2024-10-06 11:51 | disposition home or self-care (01) ==
LOC: HO.CHCLDS 11:50
PROVIDERS: Visit Provider Internal Medicine
DX: F41.9 Anxiety disorder, unspecified (principal)
CPT/HCPCS: 36415; 80048; 84443

== ENCOUNTER 2025-06-11 18:39 | Outpatient (REF) | payer MEDICAID, SELFPAY ==
--- OUTSIDE RECORDS SUMMARY | 2025-06-11 09:30 | XMS_ITS | Encounter Summary ---
Author Organization [employer] Address [address] [facility] 7 [place] [address] Care Team Providers Care Heel Molder Name Role Phone Ab Pelaez MD Primary Care Prov ider Reason for Visit * Reason Comments Gynecologic Exam And mirena change Encounter Details Date Type Department Care Team (Latest Contact Info) Description 06/11/2025 9:30 AM EDT Procedure Visit [facility] [address], [place] [id number] Maurice Borrego, BRANDS EDITOR [address] [place] [address] Urine test negative (Primary Dx); Encounter for cervical Pap smear with pelvic exam; Encounter for removal and reinsertion of intrauterine contraceptive device Social History Tobacco Use Types Packs/Day Years Used Date Smoking Tobacco: Every Day Cigarettes Smokeless Tobacco: Never Alcohol Use Standard Drinks/Week Comments Yes 2 (1 standard drink = 0.6 oz pur e alcohol) once every 3 months Depression Answer Date Recorded Patient Health Questionnaire-9 Score 3 01/16/2025 Patient Health Questionnaire-9 Score 3 01/16/2025 Last PHQ-9: Questionnaire Data Not on file 0 01/16/2025 Housing Stability Answer Date Recorded What is your housing situation today? I have mike eng 01/16/[address] you li ve. Do you have problems with any of the following? None of the above 01/16/2025 Food Insecurity Answer Date Recorded Within the past 12 months, y ou worried that your food would run out before you got money to buy more: Never True 01/16/2025 Within the past 12 months,th e food you bought just didn't last and you didn't have enough money to get more: Never True Transportation Answer Date Recorded In the past 12 months, has l ack of transportation kept you from medical appts, meetings, work or from getting things needed for daily living? No 01/16/2025 Utilities Answer Date Recorded In the past 12 months, has t he electric, gas, oil or water company threatened to shut off services in your home? No 01/16/2025 Depression Answer Date Recorded Patient Health Questionnaire-2 Score 2 01/16/2025 Internet Access Answer Date Recorded Internet Access Q1 No 01/16/2025 Internet Access Q2 I do not want or need it 12/26 Comments No Sex and Gender Information Value Date Recorded Sex Assigned at Female 06/26/2022 10:29 AM EDT Legal Sex Female 10:29 AM EDT Gender Identity Female 06/26/2022 10:29 AM EDT Sexual Orientation Straight 06/26/2022 10 :29 AM EDT documented as of this encounter Last Filed Vital Signs Vital Sign Reading Time Taken Comments Blood Pressure 107/62 06/11/2025 9:49 AM EDT Pulse 73 06/11/2025 9:49 AM EDT Temperature 36.7 C (98.1 F) 06/11/2025 9:49 AM EDT Respiratory Rate 16 06/11/2025 9:49 AM EDT Oxygen Saturation 98% 06/11/2025 9:49 AM EDT Inhaled Oxygen Concentration - - Weight 74.4 kg (164 lb) 06/11/2025 9:49 AM EDT Height 159.4 cm (5' 2.75 ) 06/11/2025 9:49 AM ED T Body Mass Index 29.28 06/11/2025 9:49 AM EDT documented in this encounter Progress Notes * Maurice Borrego CNP - 06/11/2025 9:30 AM EDTAssociated Order(s): IUD Management Post-Procedure Diagnose(s): Encounter for removal and reinsertion of intrauterine contraceptive device Subjective Patient ID: Sincere Marcial is a 40 y.o. female who presents for pap smear. HPI Last pap 11/2018-results unknown. Pt has Mirena IUD, placed in 2018. Last screening mammo 2018. Diagnostic Mammo on 12/2022- revealed an approximately 4 cm round mass with circumscribed margins at the 4 o'clock position of the right breast accounting for the palpable lump. This was new since prior mammography. The imaging features suggested a fibroadenoma, with Phyllodes tumor and ductal carcinoma also included in the differential diagnosis. The patient had ultrasound-guided percutaneous biopsy of the mass on 01/17/2023. A wing tissue marker was placed at the biopsy site. 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 6-month follow-up ultrasound was recommended to evaluate for growth of the lesion. She return for diagnostic mammogram and breast [...] the breast mass, surgical excision was recommended. Today she denies any vaginal or urinary concerns. She requests breast exam today although no concerns at this time. LMP 05/18 Reports she has regular periods with Mirena IUD. She is happy with IUD method and agrees to Deandre today as Mirena IUD not in stock with clinic. Review of Systems Objective Vitals: 06/11/25 0949 BP: 107/62 Pulse: 73 Resp: 16 Temp: 98.1 ??F (36.7 ??C) SpO2: 98% No LMP recorded. Patient ID: Sincere Marcial is a 40 y.o. female. IUD Management Performed by: Janae Lou MD Authorized by: Maurice Borrego CNP Procedure: IUD removal and insertion Procedure comment: Flight Deck Officer and assistance provided by Janae Lou MD Consent obtained by patient, parent, or legal power of deputy commonwealth's attorney - including discussion of procedurerisks and benefits, patient questions answered, and patient education provided: yes Other reason for removal: Due for replacement, Mirena device Strings visualized: yes Cervix cleaned with: iodopovidone Tenaculum applied to cervix: yes Cervix manually dilated: no IUD grasped by forceps: yes Performed with ultrasound guidance: no IUD removed: yes Date/Time of Removal: 06/11/2025 10:30 AM Removed without complications: yes IUD intact: yes risk: reasonably certain the patient is not Date/Time of Insertion: 06/11/2025 10:45 AM Immediately prior to procedure a time out was called: yes Pelvic exam performed: yes Speculum placed in vagina: yes Cervix cleaned and prepped: yes Tenaculum/Allis/Ring Forceps applied to cervix: yes Anesthesia used: no Uterus sound depth (cm): 7 IUD inserted without complications: yes (IUD was inserted with minor difficulty visualizing cervix and strings as uterus is extremely anterior, graves speculum used.) OSM: 20.1 mcg/day Levonorgestrel 20.1 MCG/DAY Strings trimmed to (cm): 2 Patient tolerated procedure well: yes (pain/cramping reported by pt but was tolerated) Inserted with ultrasound guidance: no Transvaginal sono confirmed fundal placement: no Estimated blood loss (mL): 5 Intended removal date: 8 years Insertion comments: Uterus sounded to 7cm, IUD placed without complication after proper replacementand readjustment of proper speculum size. Pt did report pain and cramping with insertion but returned to baseline at end of visit. All questions and concerns addressed. Physical Exam Constitutional: Appearance: Normal appearance. HENT: Head: Normocephalic and atraumatic. Chest: Breasts: Right: Normal. No swelling, bleeding, inverted nipple, mass, nipple discharge, skin change or tenderness. Left: Normal. No swelling, bleeding, inverted nipple, mass, nipple discharge, skin change or tenderness. Genitourinary: General: Normal vulva. Labia: Right: No rash, tenderness, lesion or injury. Left: No rash, tenderness, lesion or injury. Urethra: No prolapse, urethral pain, urethral swelling or urethral lesion. Vagina: Normal. Cervix: Cervical bleeding present. No cervical motion tenderness, discharge, friability, lesion, erythema or eversion. Uterus: Normal. Not deviated, not enlarged, not fixed, not tender and no uterine prolapse. Adnexa: Right adnexa normal and left adnexa normal. Right: No mass, tenderness or fullness. Left: No mass, tenderness or fullness. Rectum: Normal. Comments: Anterior uterus Lymphadenopathy: Upper Body: Right upper body: No supraclavicular, axillary or pectoral adenopathy. Left upper body: No supraclavicular, axillary or pectoral adenopathy. Neurological: General: No focal deficit present. Mental Status: She is alert and oriented to person, place, and time. Psychiatric: Mood and Affect: Mood normal. Behavior: Behavior normal. Assessment/Plan Problem List Items Addressed This Visit None Visit Diagnoses Urine test negative - Primary Relevant Orders POCT , urine manually resulted (Completed) POCT test neg today Encounter for cervical Pap smear with pelvic exam Relevant Orders Pap Smear If pap smear results normal, next pap due in 5 years- 06/11/2030. Will call pt once results received. Encounter for removal and reinsertion of intrauterine contraceptive device Relevant Orders IUD Management Assessment Summary: Patient presents for scheduled intrauterine device (IUD) removal and reinsertion. IUD in place is [type, e.g., levonorgestrel-releasing IUD (Liletta, Mirena) placed [7-8] years ago. No current signs or symptoms of infection, expulsion, or malposition. Patient desires continued long-term contraception and has elected for reinsertion of a new IUD [Liletta]. No contraindications to IUD use at this time. No current suspected based on history and/or negative urine test in clinic. Plan: IUD Removal: Performed in clinic without complication. Strings visualized, IUD removed intact. No signs of infection or abnormal discharge noted on speculum exam. IUD Reinsertion: New Liletta inserted without complication. String length trimmed to ~2-3 cm. Patient tolerated procedure with some reported pain during insertion, pt returned to baseline post procedure. Post-insertion counseling provided regarding expected cramping and spotting. Contraception Counseling: Discussed risks, benefits, and alternatives. Patient verbalized understanding and desire to continue IUD use. Testing: Urine test negative in clinic prior to reinsertion. Follow-Up: Routine follow-up in 4-6 weeks if any issues arise (e.g., cramping, abnormal bleeding, expulsion). Return to clinic sooner if symptoms of infection, malposition, or . Education Provided: Provided Patient education sheet with IUD aftercare documented in this encounter Plan of Treatment Scheduled Orders Name Type Priority Associated Diagnoses Orde r Schedule Pap Smear Pathology and Cytology Routine Encounter for cervical Pap smear with pelvic exam Ordered: 06/11/2025 documented as of this encounter Procedures Procedure Name Priority Date/Time Associated Diagnosis Comments POCT , URINE Routine 06/11/2025 10:16 AM EDT Urine test negative TX REMOVAL INTRAUTERINE DEVICE IUD Routine 06/11/2025 9:30 AM EDT Encounter for removal and reinsertion of intrauterine contraceptive device TX INSERTION INTRAUTERINE DEVICE IUD Routine 06/11/2025 9:30 AM EDT Encounter for removal and reinsertion of intrauterine contraceptive device documented in this encounter Results * POCT , urine manually resulted (06/11/2025 10:16 AM EDT) Preg Test, Ur Negative Negative, Indeterminate, None Detected, Invalid, Specimen unsatisfactory for evaluation, Weakly Positive, 2+ QC Media Lot # Comment:[id number] Lot# Expiration Date Comment:12/06/2025 QC TEST Comment:pass Urine 06/11/2025 10:1 6 AM EDT Maurice Borrego CNP POINT OF CARE TEST ENTER/ EDIT ORDERABLES Final Result * TX INSERTION INTRAUTERINE DEVICE IUD, TX REMOVAL INTRAUTERINE DEVICE IUD (06/11/2025 9:30 AM EDT) Narrative Maurice Borrego CNP - 06/11/2025 9:30 AM EDT Maurice Borrego CNP 06/11/2025 11:58 AM IUD Management Performed by: Janae Lou MD Authorized by: Maurice Borrego CNP Procedure: IUD removal and insertion Procedure comment: Flight Deck Officer and assistance provided by Janae Lou MD Consent obtained by patient, parent, or legal power of deputy commonwealth's attorney - including discussion of procedure risks and benefits, patient questions answered, and patient education provided: yes Other reason for removal: Due for replacement, Mirena device Strings visualized: yes Cervix cleaned with: iodopovidone Tenaculum applied to cervix: yes Cervix manually dilated: no IUD grasped by forceps: yes Performed with ultrasound guidance: no IUD removed: yes Date/Time of Removal: 06/11/2025 10:30 AM Removed without complications: yes IUD intact: yes risk: reasonably certain the patient is not Date/Time of Insertion: 06/11/2025 10:45 AM Immediately prior to procedure a time out was called: yes Pelvic exam performed: yes Speculum placed in vagina: yes Cervix cleaned and prepped: yes Tenaculum/Allis/Ring Forceps applied to cervix: yes Anesthesia used: no Uterus sound depth (cm): 7 IUD inserted without complications: yes (IUD was inserted with minor difficulty visualizing cervix and strings as uterus is extremely anterior, graves speculum used.) OSM: 20.1 mcg/day Levonorgestrel 20.1 MCG/DAY Strings trimmed to (cm): 2 Patient tolerated procedure well: yes (pain/cramping reported by pt but was tolerated) Inserted with ultrasound guidance: no Transvaginal sono confirmed fundal placement: no Estimated blood loss (mL): 5 Intended removal date: 8 years Insertion comments: Uterus sounded to 7cm, IUD placed without complication after proper replacement and readjustment of proper speculum size. Pt did report pain and cramping with insertion but returned to baseline at end of visit. All questions and concerns addressed. Maurice Borrego CNP IN CLINIC/BEDSIDE ORDERAB LES Final Result documented in this encounter Visit Diagnoses Diagnosis Urine test negative- Primary Encounter for cervical Pap smear with pelvic exam Encounter for removal and reinsertion of intrauterine contraceptive device documented in this encounter Administered Medications Inactive Administered Medications - up to 3 most recent administrations Medication Order MAR Action Action Date Dose Rate Site Levonorgestrel intrauterine device 20.1 mcg/day 20.1 mcg/day, Intrauterine, Once PRN Procedure, Starting on Leah 06/11/25 at 0930, For 1 doseIndications:Encounter for removal and reinsertion of intrauterine contraceptive device Given 06/11/2025 9:30 AM EDT 20.1 mcg/day documented in this encounter Additional Health Concerns Assessment Noted Time PHQ-9 Depression Total Score: 3 01/17/20 11:40 AM EDT documented as of this encounter Care Teams Heel Molder Relationship Specialty Start Date End Date Duron Cast, Ab, MD [address] [place] [id number] PCP - General Internal Medicine 05/25/25 documented as of this encounter
--- OUTSIDE RECORDS SUMMARY | 2025-06-11 19:54 | XMS_ITS | Encounter Summary ---
Author Organization [employer] Address [address] [facility] [address]t [place] [address] Care Team Providers Care Credit Resolution Representative Name Role Phone Flavia Haile MD Primary Care Provider [phone] Ab Pelaez MD Primary Care Prov ider Reason for Visit * Reason Onset Date Comments Nurse Triage 05/08/2025 Encounter Details Date Type Department Care Team ([facility] st Contact Info) Description 05/08/2025 Telephone [facility] [address] [place] [address] Flavia Haile MD [address] [place] [address] Nurse Triage Social History Tobacco Use Types [...] housing situation today? I have mikesathish eng 01/16/[address] you [...] encounter Miscellaneous Notes * Telephone Encounter - Mariana Peres RN - 05/08/2025 1:50 PM EDT No spanish medical interpreter needed as this field underwriter speaks Swiss. Call returned to Sincere Marcial to triage below at [phone]. Reports having an allergic reaction to a possible deodorant. Per pt had swelling of lip. No swelling of tongue, difficulty swallowing. Denies any rash. Pt takes Benadryl nightly. Pt states intermittent swelling. Pt has not taken Benadryl today. Pt advised of disposition, agrees to seek [facility] for evaluation. Reviewed [facility] operating hours and that wait times vary.Reviewed home care advise, ER precautions and reasons to call back. Protocol Used: Mouth Symptoms (Adult) Protocol-Based Disposition: See in Office or Video Visit within 3 Days Video visit offer not recorded Positive Triage Question: * Patient wants to be seen * All higher-acuity triage questions were negative * Telephone Encounter - Blaise Young - 05/08/2025 1:32 PM EDT Symptom: Allergic Reaction (General) Outcome: Schedule an urgent appointment (within 1 hour) or talk to a nurse or provider soon Reason: Caller denied all higher acuity questions The caller accepted this outcome. Contact pt at [phone] (luxembourgish) documented in this encounter Plan of Treatment Not on file documented as of this encounter Visit Diagnoses Not on filedocumented in this encounter Additional Health Concerns Assessment Noted Time PHQ-9 Depression Total Score: 3 01/17/20 11:40 AM EDT documented as of this encounter Care Teams Credit Resolution Representative Relationship Specialty Start Date End Date Flavia Haile MD [address] [place] [phone] PCP - General Family Medicine 07/04/16 05/24/25 Ab Pelaez MD [address] [place] [id number] PCP - General Internal Medicine 05/25/25 documented as of this encounter
--- OUTSIDE RECORDS SUMMARY | 2025-06-11 19:54 | XMS_ITS | Encounter Summary ---
Author Organization [employer] [facility] Address [address] [place] [address] 7 [place] [address] Care Team Providers Care Backend Python Developer Name Role Phone Flavia Haile MD Primary Care Provider [phone] Ab Pelaez MD Primary Care Prov ider Encounter Details Date Type Department Care Team (Latest Contact Info) Description 01/22/2019 [facility]VERSION[facility] Dental, Provider, DDS Social History Tobacco [...] on filedocumented in this encounter Care Teams Backend Python Developer Relationship Specialty Start Date End Date Flavia Haile MD [address] [place] [id number] PCP - General Family Medicine 07/04/16 05/24/25 Ab Pelaez MD [address] [place] [phone] PCP - General Internal Medicine 05/25/25 documented as of this encounter
--- OUTSIDE RECORDS SUMMARY | 2025-06-11 19:54 | XMS_ITS | Clinical Summary ---
Author Organization [facility] Address [address] [place] [address] Phone Care Team Providers Care Research Worker Encyclopedia Name Role Phone Ab Pelaez Primary Care Provide r Allergies No known active allergies Medications FLUoxetine (PROzac) 10 mg capsule Take 1 capsule (10 mg total) by mouth 1 (one) time each day. 06/03/2024 Active buPROPion SR (WELLBUTRIN SR) 100 mg 12 hr tablet Take 150 mg by mouth 2 (two) times a day. Active melatonin 10 mg capsule Take 1 capsule (10 mg total) by mouth at bedtime. 06/06/2024 Active levocetirizine (XYZAL) 5 mg tablet Take 1 tablet (5 mg total) by mouth 1 (one) time each day in the evening. Active famotidine (PEPCID) 20 mg tablet Take 1 tablet (20 mg total) by mouth 2 (two) times a day for 15 days. 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 Resolved Problems Problem Noted Date Diagnosed Date Resolved Date Acute appendicitis with localized peritonitis 03/08/20 16 08/07/2024 Encounters Date Type Department Care Team Description 06/01/2025 1:04 AM EDT - 06/01/2025 3:39 AM EDT Emergency [facility] Emergency [address] [place] [address] Chest pain with low risk for cardiac etiology (Primary Dx) Discharge Disposition: Home or Self Care from Last 3 Months Surgical History Surgery Date Site/Laterality Comments SECTION 2001, 2011 APPENDECTOMY SECTION, LOW TRANSVERSE BREAST MASS EXCISION 09/17/2024 Right Right breast wide local excision of palpable mass Medical History Medical History Date Comments Anxiety Insomnia Tobacco dependence Allergic sinusitis Asthma Family History Medical History Relation Name Comments Colon cancer Father's Sister Colon cancer Paternal Grandfather Relation Name Status Comments Father's Sister Paternal Grandfather Social History Tobacco Use Types Packs/Day Years Used Date Smoking Tobacco: Every Day Cigarettes 0.5 12.8 Started: 08/07/2012 Tobacco Cessation:Ready to Q uit: Not Asked; Counseling Given: Not Answered Alcohol Use Standard Drinks/Week Comments Yes 0 (1 standard drink = 0.6 oz pur e alcohol) Socially, occasionally Interpersonal Safety Answer Date Record ed Physical Abuse Unrecognized value 09/17/2024 Verbal Abuse Unrecognized value 09/17/2024 Comments No Sex and Gender Information Value Date Recorded Sex Assigned at Female 09/08/2024 10:45 AM EST Legal Sex Female 5:12 PM EST Gender Identity Female 09/08/2024 10:45 AM EST Sexual Orientation Straight 09/08/2024 10 :45 AM EST Obstetrics History Last Filed Vital Signs Vital Sign Reading Time Taken Comments Blood Pressure 100/54 06/01/2025 2:40 AM EDT Pulse 74 06/01/2025 2:40 AM EDT Temperature 36.7 C (98 F) 06/01/2025 2:40 AM EDT Respiratory Rate 20 06/01/2025 2:40 AM EDT Oxygen Saturation 100% 06/01/2025 2:40 AM EDT Inhaled Oxygen Concentration - - Weight 73.5 kg (162 lb) 06/01/2025 1:02 AM EDT Height 160 cm (5' 3 ) 06/01/2025 1:02 AM EDT Body Mass Index 28.7 06/01/2025 1:02 AM EDT Plan of Treatment Health Maintenance Due Date Last Done Comments Hepatitis B Vaccines (1 of 3 - 19+ 3-dose series) 2005 Pneumococcal Vaccine: Pediatrics (0 to 5 Years) and At-Risk Patients (6 to 49 Years) (1 of 2 - PCV) 2005 HPV Vaccines (1 - Risk 3-dose SCDM series) 2013 Cervical Cancer Screening: Pap Smear 12/04/2021 12/04/2018 HIV Screening 07/26/2022 Social Influencers of Health Screening 07/26/2022 Depression Screening 08/27/2024 COVID-19 Vaccine ( season) 2025 09/13/2021, 02/02/2021, 01/08/2021 Influenza Vaccine (#1) 2025 , 06/30/2021, 05/21/2019, Additional history exists DTaP,Tdap,and Td Vaccines (3 - Td or Tdap) 07/04/2026 07/04/2016, 08/05/2011 Cholesterol Screening (Lipid Panel) 12/10/2028 12/11/2023 RSV Immunization Adult Patients (1 - 1-dose 75+ series) 2061 Hepatitis C Screening Completed 12/11/2023 HIB Vaccines Aged Out No longer eligi ble based on patient's age to complete this topic Hepatitis A Vaccines Aged Out No long er eligible based on patient's age to complete this topic IPV Vaccines Aged Out No longer eligi ble based on patient's age to complete this topic MMR Vaccines Aged Out No longer eligi ble based on patient's age to complete this topic Meningococcal ACWY Vaccine Aged Out N o longer eligible based on patient's age to complete this topic Meningococcal B Vaccine Aged Out No l onger eligible based on patient's age to complete this topic RSV Immunization Patients Under 20 months Aged Out No longer eligible based on patient's age to complete this topic Varicella Vaccines Aged Out No longer eligible based on patient's age to complete this topic Medical Devices Implanted Type Area Cane Packer Device Identifier Shelf Expiration Date Model / Serial / Lot Hemostat Flour Collgn 1gm Josetene - Sn/A - [id number] Implanted:Qty: 1 on 09/17/2024 by Herminio Richards MD at [facility] Hemostasis Right: Breast CR BARD - DAVOL DIV [id number] 06/23/2027 [id number] / N/A / [id number] Procedures Procedure Name Priority Date/Time Associated Diagnosis Comments ECG ANNOTATED 06/02/2025 ECG 12-LEAD STAT 06/01/2025 2:42 AM EDT TROPONIN I HIGH SENSITIVITY Timed 06/01/2025 2:32 AM EDT XR CHEST 2 VIEWS STAT 06/01/2025 1:45 AM EDT POC , URINE DIAGNOSTIC STAT 06/01/2025 1:19 AM EDT CBC WITH AUTO DIFFERENTIAL STAT 06/01/2025 1:13 AM EDT B-TYPE NATRIURETIC PEPTIDE STAT 06/01/2025 1:13 AM EDT MAGNESIUM STAT 06/01/2025 1:13 AM EDT LIPASE STAT 06/01/2025 1:13 AM EDT COMPREHENSIVE METABOLIC PANEL STAT 06/01/2025 1:13 AM EDT CBC AND DIFFERENTIAL STAT 06/01/2025 1:13 AM EDT TROPONIN I HIGH SENSITIVITY Timed 06/01/2025 1:13 AM EDT PAP SMEAR Routine 12/04/2018 from Last 3 Months or Most Recently Relevant to Health Maintenance Results * ECG-Annotated (06/02/2025) us Provider Onbase MD ECG ORDERABLES Final Result * ECG 12 lead (06/01/2025 2:42 AM EDT) Ventricular Rate ECG 77 BPM GEMUSE Atrial Rate 77 BPM GEMUSE P-R Interval 162 ms GEMUSE QRS Duration 88 ms GEMUSE Q-T Interval 422 ms GEMUSE QTc 477 ms GEMUSE P Wave [place] 59 degrees GEMUSE R [place] 27 degrees GEMUSE T [place] 29 degrees GEMUSE ECG Interpretation Sinus rhythm with frequent Premature ventricular complexes Low voltage QRS Possible Inferior infarct , age undetermined When compared with ECG of 20-JUL-2022 14:38, Premature ventricular complexes are now Present QT has lengthened Confirmed by DANILO BERRIOS ([id number]) on 06/02/2025 7:55:04 AM GEMUSE 06/01/2025 2:42 AM EDT 06/02/2025 7:55 AM EDT Kaylynn BROWN ECG ORDERABLES Final Re sult Performing Organization Address [facility] de Phone Number GEMUSE * Troponin I high sensitivity (06/01/2025 2:32 AM EDT) Only the most recent of2 resultswithin the time period is included. High Sensitivity Troponin I 7 <=54 ng/L LAB CHEMISTRY METHOD 06/01/2025 3:17 AM EDT [facility] Blood Venous blood specimen / Unknown Venipuncture / Unknown 06/01/2025 2:32 AM EDT 06/01/2025 2:53 AM EDT Narrative [facility] - 06/01/2025 3:17 AM EDT High levels of biotin in samples may falsely decrease hsTroponin values. Use caution when interpreting hsTroponin results in patients taking biotin who exhibit renal impairment (eGFR <60) or in patients taking more than 20 mg/day of biotin. Kaylynn BROWN LAB BLOOD ORDERABLES Fin al Result Performing Organization Address [facility] de Phone Number [facility] [address] [place] [address], [place] [phone] * XR Chest 2 Views (06/01/2025 1:45 AM EDT) Anatomical Region Laterality Modality Body Radiographic Adrienne ging 06/01/2025 9:43 AM EDT Impressions 06/01/2025 9:45 AM EDT FINDINGS/IMPRESSION: Lungs are clear. No pleural effusion or pneumothorax. Cardiac silhouette is normal in size. Levoconvex thoracolumbar curvature. No acute fracture. -------- FINAL REPORT -------- Dictated By: JANA ROSSI Dictated Date: 06/01/2025 09:43 ET Assigned Physician: JANA ROSSI Reviewed and Electronically Signed By: JANA ROSSI Signed Date: 06/01/2025 09:45 ET Workstation ID: [id number] Transcribed By: Self Edit Transcribed Date: 06/01/2025 09:43 ET Narrative 06/01/2025 9:45 AM EDT XR CHEST 2 VIEWS INDICATION: Pain TECHNIQUE: XR CHEST 2 VIEWS COMPARISON: No priors available. Procedure Note Jana Rossi MD - 06/01/2025 XR CHEST 2 VIEWS INDICATION: Pain TECHNIQUE: XR CHEST 2 VIEWS COMPARISON: No priors available. IMPRESSION: FINDINGS/IMPRESSION: Lungs are clear. No pleural effusion orpneumothorax. Cardiac silhouette is normal in size. Levoconvexthoracolumbar curvature. No acute fracture. -------- FINAL REPORT -------- Dictated By: JANA ROSSI Dictated Date: 06/01/2025 09:43 ET Assigned Physician: JANA ROSSI Reviewed and Electronically Signed By: JANA ROSSI Signed Date: 06/01/2025 09:45 ET Workstation ID: [id number] Transcribed By: Self Edit Transcribed Date: 06/01/2025 09:43 ET us Kaylynn BROWN IMG XR PROCEDURES Final Result * POC , urine manually resulted (06/01/2025 1:19 AM EDT) HCG, Ur POC Negative Negative POC hCG Int QC Pass? Yes Yes EXPIRATION DATE POC 10/14/2026 LOT NUMBER POC [id number] Urine Urine specimen obtained by clean catch procedure / Unknown 06/01/2025 1:19 AM EDT us Kaylynn BROWN POINT OF CARE TEST ENTER /EDIT ORDERABLES Final Result * (ABNORMAL) CBC auto differential (06/01/2025 1:13 AM EDT) Pathologist [facility] WBC 8.2 4.8 - 10.8 K/mcL LAB HEMETOLOGY METHOD 06/01/2025 2:09 AM [facility] RBC 3.90 3.80 - 4.80 M/mcL LAB HEMETOLOGY METHOD 06/01/2025 2:09 AM [facility] Hemoglobin 12.7 11.5 - 16.0 g/dL LAB HEMETOLOGY METHOD 06/01/2025 2:09 AM [facility] Hematocrit 38.2 35.0 - 47.0 % LAB HEMETOLOGY METHOD 06/01/2025 2:09 AM [facility] MCV 97.2 79.0 - 98.0 FL LAB HEMETOLOGY METHOD 06/01/2025 2:09 AM [facility] MCH 32.3(H) 27.0 - 32.0 pcg LAB HEMETOLOGY METHOD 06/01/2025 2:09 AM [facility] MCHC 33.2 32.0 - 37.0 g/dL LAB HEMETOLOGY METHOD 06/01/2025 2:09 AM [facility] RDW 11.7 11.0 - 15.0 % LAB HEMETOLOGY METHOD 06/01/2025 2:09 AM [facility] Platelets 177 130 - 400 K/mcL LAB HEMETOLOGY METHOD 06/01/2025 2:09 AM [facility] MPV 12.8(H) 7.0 - 11.0 FL LAB HEMETOLOGY METHOD 06/01/2025 2:09 AM [facility] NRBC 0.0 <1.0 % LAB HEMETOLOGY METHOD 06/01/2025 2:09 AM [facility] NRBC Absolute 0.00 <0.10 K/mcL LAB HEMETOLOGY METHOD 06/01/2025 2:09 AM [facility] Neutrophils Relative 50.3 % LAB HEMETOLOGY METHOD 06/01/2025 2:09 AM [facility] Lymphocytes Relative 38.2 % LAB HEMETOLOGY METHOD 06/01/2025 2:09 AM [facility] Monocytes Relative 8.3 % LAB HEMETOLOGY METHOD 06/01/2025 2:09 AM [facility] Eosinophils Relative 2.4 % LAB HEMETOLOGY METHOD 06/01/2025 2:09 AM [facility] Basophils Relative 0.6 % LAB HEMETOLOGY METHOD 06/01/2025 2:09 AM [facility] Immature Granulocytes Relative 0.2 % LAB HEMETOLOGY METHOD 06/01/2025 2:09 AM [facility] Neutrophils Absolute 4.12 1.50 - 7.00 K/mcL LAB HEMETOLOGY METHOD 06/01/2025 2:09 AM [facility] Lymphocytes Absolute 3.13 1.00 - 5.00 K/mcL LAB HEMETOLOGY METHOD 06/01/2025 2:09 AM [facility] Monocytes Absolute 0.68 0.20 - 1.00 K/mcL LAB HEMETOLOGY METHOD 06/01/2025 2:09 AM [facility] Eosinophils Absolute 0.20 0.00 - 0.50 K/mcL LAB HEMETOLOGY METHOD 06/01/2025 2:09 AM [facility] Basophils Absolute 0.05 0.00 - 0.20 K/mcL LAB HEMETOLOGY METHOD 06/01/2025 2:09 AM [facility] Immature Granulocytes Absolute 0.02 0.00 - 0.03 K/mcL LAB HEMETOLOGY METHOD 06/01/2025 2:09 AM [facility] Blood Venous blood specimen / Unknown Venipuncture / Unknown 06/01/2025 1:13 AM EDT 06/01/2025 2:02 AM EDT Kaylynn BROWN LAB BLOOD ORDERABLES Fin al Result Performing Organization Address [facility]/ZIP Co de Phone Number [facility] [address] [place] [address], [place] [phone] * B-type natriuretic peptide (06/01/2025 1:13 AM EDT) [facility] BNP 11 <=100 pcg/mL LAB CHEMISTRY METHOD 06/01/2025 2:36 AM EDT [facility] Blood Venous blood specimen / Unknown Venipuncture / Unknown 06/01/2025 1:13 AM EDT 06/01/2025 2:02 AM EDT Kaylynn BROWN LAB BLOOD ORDERABLES Fin al Result Performing Organization Address [facility] Co de Phone Number [facility] [address] [place] [address], [place] [phone] * Magnesium (06/01/2025 1:13 AM EDT) [facility] Magnesium 1.9 1.9 - 2.6 mg/dL LAB CHEMISTRY METHOD 06/01/2025 2:37 AM EDT [facility] Blood Venous blood specimen / Unknown Venipuncture / Unknown 06/01/2025 1:13 AM EDT 06/01/2025 2:02 AM EDT Kaylynn BROWN LAB BLOOD ORDERABLES Fin al Result Performing Organization Address City/[facility]/ZIP Co de Phone Number [facility] [address] [place] [address], [place] [phone] * Lipase (06/01/2025 1:13 AM EDT) [facility] Lipase 58 13 - 75 unit/L LAB CHEMISTRY METHOD 06/01/2025 2:37 AM [facility] Blood Venous blood specimen / Unknown Venipuncture / Unknown 06/01/2025 1:13 AM EDT 06/01/2025 2:02 AM EDT Kaylynn BROWN LAB BLOOD ORDERABLES Fin al Result [facility] [address] [place] [address], [place] [phone] * (ABNORMAL) Comprehensive metabolic panel (06/01/2025 1:13 AM EDT) [facility] Sodium 141 133 - 145 mmol/L LAB CHEMISTRY METHOD 06/01/2025 2:37 AM [facility] Potassium 3.4(L) 3.5 - 5.5 mmol/L LAB CHEMISTRY METHOD 06/01/2025 2:37 AM [facility] Chloride 109 96 - 110 mmol/L LAB CHEMISTRY METHOD 06/01/2025 2:37 AM [facility] CO2 23 21 - 32 mmol/L LAB CHEMISTRY METHOD 06/01/2025 2:37 AM [facility] Anion Gap 9 3 - 11 LAB CHEMISTRY METHOD 06/01/2025 2:37 AM [facility] Glucose 100 70 - 100 mg/dL LAB CHEMISTRY METHOD 06/01/2025 2:37 AM [facility] BUN 14 5 - 25 mg/dL LAB CHEMISTRY METHOD 06/01/2025 2:37 AM [facility] Creatinine 0.68 0.50 - 1.10 mg/dL LAB CHEMISTRY METHOD 06/01/2025 2:37 AM [facility] eGFR 114 >=60 mL/min/1. 73m2 LAB CHEMISTRY METHOD 06/01/2025 2:37 AM [facility] Comment:Calculation based on the Chronic Kidney Disease Epidemiology Collaboration (CKD-EPI) equation refit without adjustment for race. BUN/Creatinine Ratio 20.6 LAB CHEMISTRY METHOD 06/01/2025 2:37 AM [facility] Calcium 9.3 8.5 - 10.5 mg/dL LAB CHEMISTRY METHOD 06/01/2025 2:37 AM [facility] AST (SGOT) 16 10 - 42 unit/L LAB CHEMISTRY METHOD 06/01/2025 2:37 AM [facility] ALT (SGPT) 23 10 - 60 unit/L LAB CHEMISTRY METHOD 06/01/2025 2:37 AM [facility] Alkaline Phosphatase 87 42 - 121 unit/L LAB CHEMISTRY METHOD 06/01/2025 2:37 AM [facility] Total Protein 7.1 6.0 - 8.0 g/dL LAB CHEMISTRY METHOD 06/01/2025 2:37 AM [facility] Albumin 4.2 3.2 - 5.0 g/dL LAB CHEMISTRY METHOD 06/01/2025 2:37 AM [facility] Total Bilirubin 0.3 0.0 - 1.4 mg/dL LAB CHEMISTRY METHOD 06/01/2025 2:37 AM [facility] Blood Venous blood specimen / Unknown Venipuncture / Unknown 06/01/2025 1:13 AM EDT 06/01/2025 2:02 AM EDT Kaylynn BROWN LAB BLOOD ORDERABLES Fin al Result [facility] [address] [place] [address], * Hm Pap Smear (12/04/2018) Pap smear Abstracted, no interpretation Historical Provider HEALTH MAINTENANCE Final Result from Last 3 Months or Most Recently Relevant to Health Maintenance Insurance [facility] Advance Directives * Full Code - Default [...] currently active code status orders. Care Teams Research Worker Encyclopedia Relationship Specialty Start Date End Date Ab Pelaez: [id number] [address] [place] [id number] PCP - General Internal Medicine 06/01/25
--- OUTSIDE RECORDS SUMMARY | 2025-06-11 19:54 | XMS_ITS | Encounter Summary ---
Author Organization [employer] Address [address] [facility] 7t [place] [address] Care Team Providers Care Pantomimist Name Role Phone Ab Pelaez MD Primary Care Prov ider Encounter Details Date Type Department Care Team (Latest Contact Info) Description 06/11/2025 Travel Social History Tobacco Use Types Packs/Day [...] Time PHQ-9 Depression Total Score: 3 01/17/20 25 11:40 AM EDT documented as of this encounter Care Teams Pantomimist Relationship Specialty Start Date End Date Ab Pelaez MD [address] [place] [address] PCP - General Internal Medicine 05/25/25 documented as of this encounter
--- OUTSIDE RECORDS SUMMARY | 2025-06-11 19:55 | XMS_ITS | Encounter Summary ---
Author Organization [employer] Address [address] [facility] 7t [place] [address] Care Team Providers Care Test Engineering Manager Name Role Phone Flavia Haile MD Primary Care Provider [phone] Ab Pelaez MD Primary Care Prov ider Reason for Visit * Reason Onset Date Comments Referral 05/13/2024 Encounter Details Date Type Department Care Team (Late st Contact Info) Description 05/13/2024 Telephone [facility] [address] [place] [address] Flavia Haile MD [address] [place] [address] Referral Social History Tobacco Use Types Packs/Day [...] Miscellaneous Notes * Telephone Encounter - Johnson Quevedo - 05/13/2024 10:56 AM EDT Tc from patient calling to request the status of the Physical Therapy referral that was discussed in last about underwriter solicitation director does not see anything generated documented in this encounter Plan of Treatment Not on file documented as of this encounter Visit Diagnoses Not on filedocumented in this encounter Additional Health Concerns Assessment Noted Time PHQ-9 Depression Total Score: 7 10/13/19 23 11:17 AM EST documented as of this encounter Care Teams Test Engineering Manager Relationship Specialty Start Date End Date Flavia Haile MD [address] [place] [address] PCP - General Family Medicine 07/04/16 05/24/25 Ab Pelaez MD [address] [place] [address] PCP - General Internal Medicine 05/25/25 documented as of this encounter
--- OUTSIDE RECORDS SUMMARY | 2025-06-11 19:55 | XMS_ITS | Encounter Summary ---
Author Organization [employer] Address [address] [facility] 7[address] [place] [address] Care Team Providers Care Mangle Catcher Name Role Phone Ab Pelaez MD Primary Care Prov ider Encounter Details Date Type Department Care Team (Late st Contact Info) Description 06/01/2025 Orders Only [facility] [address] [place] [address] Provider, MD Mariam Social History Tobacco Use Types Packs/Day Years [...] housing situation today? I have mike albertina 01/16/[address] you li [...] on file documented as of this encounter Procedures Procedure Name Priority Date/Time Associated Diagnosis Comments XR CHEST 2 VIEWS Routine 06/01/2025 2:36 PM EDT documented in this encounter Results * XR Chest 2 Views (06/01/2025 2:36 PM EDT) Anatomical Region Laterality Modality Chest Radiographic Adrienne ging Historical Provider MD CHAVEZ XR PROCEDURES Final R esult documented in this encounter Visit Diagnoses Not on filedocumented in this encounter Additional Health Concerns Assessment Noted Time PHQ-9 Depression Total Score: 3 01/17/20 25 11:40 AM EDT documented as of this encounter Care Teams Mangle Catcher Relationship Specialty Start Date End Date Ab Pelaez MD [address] [place] [address] PCP - General Internal Medicine 05/25/25 documented as of this encounter
--- OUTSIDE RECORDS SUMMARY | 2025-06-11 19:55 | XMS_ITS | Encounter Summary ---
Author Organization [employer] Address [address] [place] [address] Care Team Providers Care Finance Lecturer Name Role Phone Ab Pelaez MD Primary Care Prov ider Reason for Visit * Reason Onset Date Comments chart prep 06/09/2025 Encounter Details Date Type Department Care Team ([facility] [address] [facility] Contact Info) Description 06/09/2025 Telephone [facility] [address] [place], [place] [phone] Ab Pelaez MD [address] [place] [address] chart prep Social History Tobacco Use Types Packs/Day Years [...] your housing situation today? I have mike sing 01/16/[address] you li [...] encounter Miscellaneous Notes * Telephone Encounter - Mirella Winters MA - 06/09/2025 3:51 PM EDT Chart Prep Labs: not applicable Images: not applicable Referrals: not applicable Vaccines due: Covid, Flu, PCV20, Hep B, and HPV Screenings: STI screening, LMP, and PISQ Overdue care gaps: Not applicable documented in this encounter Plan of Treatment Not on file documented as of this encounter Visit Diagnoses Not on filedocumented in this encounter Additional Health Concerns Assessment Noted Time PHQ-9 Depression Total Score: 3 01/17/20 11:40 AM EDT documented as of this encounter Care Teams Finance Lecturer Relationship Specialty Start Date End Date Ab Pelaez MD [address] [place] [address] MARCUS Concepcion [id number] PCP - General Internal Medicine 05/25/25 documented as of this encounter
--- OUTSIDE RECORDS SUMMARY | 2025-06-11 19:55 | XMS_ITS | Encounter Summary ---
Author Organization [employer] Address [address] [facility] 7[address] [place] [address] Care Team Providers Care Welding Machine Operator Electro Gas Name Role Phone Flavia Haile MD Primary Care Provider [phone] Ab Pelaez MD Primary Care Prov ider Reason for Visit * Reason Onset Date Comments Prior Authorization 04/23/2025 Encounter Details Date Type Department Care Team (Late st Contact Info) Description 04/23/2025 Telephone [facility] [address] [place] [address] Flavia Haile MD [address] [place] [address] Prior Authorization Social History Tobacco Use Types Packs/Day Years [...] encounter Miscellaneous Notes * Telephone Encounter - Jose Antonio Anaya - 04/23/2025 10:36 AM EDT TC from [facility] latia Bui requesting PA for Semaglutide-Weight Management (Wegovy) 0.25 MG/0.5ML solution auto-injector . Last approved Pa for script . documented in this encounter Plan of Treatment Not on file documented as of this encounter Visit Diagnoses Not on filedocumented in this encounter Additional Health Concerns Assessment Noted Time PHQ-9 Depression Total Score: 3 01/17/20 25 11:40 AM EDT documented as of this encounter Care Teams Welding Machine Operator Electro Gas Relationship Specialty Start Date End Date Flavia Haile MD [address] [place] [id number] PCP - General Family Medicine 07/04/16 05/24/25 Ab Pelaez MD [address] [place] [address] PCP - General Internal Medicine 05/25/25 documented as of this encounter
--- OUTSIDE RECORDS SUMMARY | 2025-06-11 19:55 | XMS_ITS | Encounter Summary ---
Author Organization [employer] Address [address] [facility] 7t [place] [address] Care Team Providers Care Geologist Name Role Phone Flavia Haile MD Primary Care Provider [phone] Ab Pelaez MD Primary Care Prov ider Reason for Visit * Reason Onset Date Comments Nurse Triage 01/28/2025 Encounter Details Date Type Department Care Team (Late st Contact Info) Description 01/28/2025 Telephone [facility] MEDICINE [address] [place] [address] Flavia Haile MD [address] [place] [address] Nurse Triage Social History Tobacco Use Types [...] encounter Miscellaneous Notes * Telephone Encounter - Ekaterina Pruett RN - 01/28/2025 10:52 AM EDT Triage call with [employer] , [place] [address] Pt reports possible hemorrhoids which have been causing rectal pain. Started 01/23/25 and have continued. Pt reports having the hemorrhoids without pain for a few days but, last two days there has been very painful bowel movments and Pt is requesting medication for this. Pt denies constipation has been having normal BMS last one this morning. Pt denies bleeding. ASK apt with PCP 01/29/25 @ 1115am. Pt agrees with disposition. Home care is advised with sitz bath explained. Pt agrees. Insurance is verified as active prior to booking. Protocol Used: Rectal Symptoms (Adult) Protocol-Based Disposition: See in Office or Video Visit Today or Tomorrow Positive Triage Question: * Patient wants to be seen * All higher-acuity triage questions were negative Care Advice Discussed: * Reassurance and Education - Mild Rectal Pain or Irritation * Warm Saline Sitz Baths - For Rectal Symptoms * Warm Saline Sitz Baths - How to Make a Sitz Bath * Reasons To Call Back - Severe rectal pain - Rectal pain not improved after 3 days - Rectal bleeding is more than minor (such as more than just blood on toilet paper or few drops) - Rectal bleeding is minor but is ongoing (such as occurs over 2 times) - You become worse * Reasons To Call Back - Rectal pain is not relieved - Constant or increasing abdomen pain - Abdomen swelling or vomiting occur - You become worse * Telephone Encounter - Zuleika Gold - 01/28/2025 10:22 AM EDT Symptom: Rectal Symptoms - Not Bleeding Outcome: Schedule an appointment to be seen within 3 days Reason: Caller denied all higher acuity questions The caller accepted this outcome. [phone] czech documented in this encounter Plan of Treatment Not on file documented as of this encounter Visit Diagnoses Not on filedocumented in this encounter Additional Health Concerns Assessment Noted Time PHQ-9 Depression Total Score: 3 01/17/20 11:40 AM EDT documented as of this encounter Care Teams Geologist Relationship Specialty Start Date End Date Flavia Haile MD [address] [place] [address] PCP - General Family Medicine 07/04/16 05/24/25 Ab Pelaez MD [address] [place] [address] PCP - General Internal Medicine 05/25/25 documented as of this encounter
--- OUTSIDE RECORDS SUMMARY | 2025-06-11 19:55 | XMS_ITS | Encounter Summary ---
Author Organization [employer] Address [address] [facility] 7t [place] [address] Care Team Providers Care Life Enrichment Manager Name Role Phone Flavia Haile MD Primary Care Provider [phone] Ab Peleaz MD Primary Care Prov ider Encounter Details Date Type Department Care Team (Late st Contact Info) Description 04/24/2025 Orders Only [facility] MED & PEDS [address] [place], [place] [phone] Flavia Haile MD [address] [place] [address] Social History Tobacco Use Types Packs/Day Years [...] documented as of this encounter Care Teams Life Enrichment Manager Relationship Specialty Start Date End Date Flavia Haile MD [address] [place] [address] PCP - General Family Medicine 07/04/16 05/24/25 Ab Pelaez MD [address] [place] [address] PCP - General Internal Medicine 05/25/25 documented as of this encounter
--- OUTSIDE RECORDS SUMMARY | 2025-06-11 19:55 | XMS_ITS | Encounter Summary ---
Author Organization [employer] Address [address] [place] [address] 7t [place] [address] Care Team Providers Care Channel Worker Name Role Phone Flavia Haile MD Primary Care Provider [phone] Ab Pelaez MD Primary Care Prov ider Reason for Referral * Consultation (Routine) - Closed Specialty Diagnoses / Procedures Referred By Contac t Referred To Contact Breast Surgery Diagnoses Fibroadenoma of right breast Venecia Carty MD [address] [place] [address] Phone: tel: fax: [facility] [address] [facility] 3rd Floor [address] [place] [address] Phone: tel: fax: Referral ID Status Reason Start Date Expiration Date V isits Requested Visits Authorized [id number] Closed Specialty Services Required 02/27/2024 02/26/2025 1 1 Encounter Details Date Type Department Care Team (Late st Contact Info) Description 02/27/2024 Orders Only [facility] CHC MED & PEDS [address] [place] [address] Venecia Carty MD [address] [place] [address] Fibroadenoma of right breast (Primary Dx) Social [...] documented as of this encounter Care Teams Channel Worker Relationship Specialty Start Date End Date Flavia Haile MD [address] [place] [address] PCP - General Family Medicine 07/04/16 05/24/25 Ab Pelaez MD [address] [place] [address] PCP - General Internal Medicine 05/25/25 documented as of this encounter
--- OUTSIDE RECORDS SUMMARY | 2025-06-11 19:55 | XMS_ITS | Encounter Summary ---
Author Organization [employer] Address [address] [facility] 7t [place] [address] Care Team Providers Care Resource Paraprofessional Name Role Phone Ab Pelaez MD Primary Care Prov ider Encounter Details Date Type Department Care Team (Late st Contact Info) Description 06/03/2025 Orders Only [facility] CHC MED & PEDS [address] [place] [address] Provider, MD Mariam Social History Tobacco Use [...] Name Priority Date/Time Associated Diagnosis Comments ECG 12-LEAD Routine 06/01/2025 9:32 AM EDT documented in this encounter Results * ECG 12 lead (06/01/2025 9:32 AM EDT) Historical Provider ECG ORDERABLES Final Res ult documented in this encounter Visit Diagnoses Not on filedocumented in this encounter Additional Health Concerns Assessment Noted Time PHQ-9 Depression Total Score: 3 01/17/20 25 11:40 AM EDT documented as of this encounter Care Teams Resource Paraprofessional Relationship Specialty Start Date End Date Ab Pelaez MD [address] [place] [address] PCP - General Internal Medicine 05/25/25 documented as of this encounter
--- OUTSIDE RECORDS SUMMARY | 2025-06-11 19:55 | XMS_ITS | Clinical Summary ---
Author Organization [employer] Address [address] [place] [address] 7t [place] [address] Care Team Providers Care Biometric Screener Name Role Phone Ab Pelaez MD Primary Care Prov ider Allergies No known active allergies Medications albuterol (2.5 MG/3ML) 0.083% nebulizer solution Inhale 3 mL every 8 (eight) hours. 12/08/19 21 Active azelastine (Astelin) 0.1 % nasal sprayIndicatio ns:Allergy, sequela Administer 2 sprays into each nostril 2 times daily. Use in each nostril as directed 30 mL 2 09/04/19 23 Active albuterol (ProAir HFA) 108 (90 Base) MCG/ACT inhalerIndicat ions:Allergy, sequela Inhale 2 puffs every 4 (four) hours if needed for wheezing. 18 g 1 09/04/19 23 Active famotidine (Pepcid) 40 MG tablet TAKE 1 TABLET BY MOUTH EVERY DAY AT BEDTIME 90 tablet 3 12/27/19 23 Active EPINEPHrine (Epipen) 0.3 MG/0.3ML injection syringe Inject 0.3 mL (0.3 mg) as directed 1 (one) time if needed for anaphylaxis. Inject into upper leg. Call 911 after use. 2 each 11/07/19 24 Active diphenhydrAMIN E (Banophen) 25 MG capsuleIndicat ions:Allergy, sequela TAKE ONE CAPSULE BY MOUTH EVERY NIGHT AT BEDTIME NEEDED FOR ALLERGIES 30 capsule 3 11/27/19 24 Active buPROPion SR (Wellbutrin SR) 100 MG 12 hr tablet TAKE 1 TABLET BY MOUTH IN THE MORNING AND AT 2 PM 03/11/20 24 Active Diclofenac Sodium (Voltaren) 1 % gelIndications :Musculoskelet al pain Use topical BID 100 g 3 10/06/19 25 Active ergocalciferol (Vitamin D2) 1.25 MG (00773 UT) capsule Take 1 capsule (1.25 mg) by mouth 1 (one) time per week. 5 capsule 3 05/25/20 25 Active Ketotifen Fumarate 0.035 % solution Administer 1 drop into affected eye(s) if needed in the morning and at bedtime (eye redness, itching). 10 mL 2 05/25/20 25 Active FLUoxetine (PROzac) 10 MG capsule Take 10 mg by mouth Once per day. Active melatonin 10 MG tablet Take 10 mg by mouth at bedtime. Active ibuprofen 600 MG tablet Take 1 tablet (600 mg) by mouth 3 times daily. 90 tablet 05/25/20 25 025 Active cetirizine (ZyrTEC) 10 MG tablet Take 1 tablet (10 mg) by mouth Once per day. 30 tablet 11 05/25/20 25 026 Active hydrOXYzine pamoate (Vistaril) 25 MG capsule TAKE ONE OR TWO CAPSULES AT BEDTIME 05/14/20 25 Active fluticasone (Flovent HFA) 110 MCG/ACT inhalerIndicat ions:Allergy, sequela Inhale 1 puff every 12 (twelve) hours. 12 g 2 09/04/19 23 025 Discontinued Ketotifen Fumarate 0.035 % solution Administer 1 drop into affected eye(s) if needed in the morning and at bedtime (eye redness, itching). 10 mL 2 11/07/19 24 025 Discontinued(Re order (will not trigger notification to Pharmacy)) Semaglutide-We ight Management (Wegovy) 0.25 MG/0.5ML solution auto-injectorI ndications:Obe sity (BMI 30.0-34.9) Inject 0.25 mg as directed 1 (one) time per week. 0.5 mL 3 06/10/20 24 025 Discontinued ergocalciferol (Vitamin D2) 1.25 MG (91992 UT) capsule Take 1 capsule (1.25 mg) by mouth 1 (one) time per week. 5 capsule 3 06/10/20 24 025 Discontinued(Re order (will not trigger notification to Pharmacy)) Lidocaine-Hydr ocort, Perianal, 3-0.5 % cream Use a small amount BID 85 g 3 01/30/20 25 025 Discontinued Hospital, Clinic, or Other Facility Administered Medication Ordered Dose Route Frequency Start Date End Date Status Levonorgestrel intrauterine device 20.1 mcg/dayIndications:En counter for removal and reinsertion of intrauterine contraceptive device 20.1 mcg/day IU Once PRN Procedure 06/11/2025 06/11/2025 Ended Active Problems Problem Noted Date Diagnosed Date Class 1 obesity 10/06/2024 Assessment & Plan (05/28/2025 9:13 AM EDT): Continue low calorie diet and exercise as tolerated, follow up as needed 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 adhesions 10/06/2024 Fibroadenoma, right 08/07/2024 Mass of lower inner quadrant of right breast 07/2024 Tobacco dependence 11/07/2023 Anxiety 10/13/2022 Assessment & Plan (05/28/2025 9:16 AM EDT): Followed by psych, no suicidal/homicidal ideas, on wellbutrin for smokin cessation and fluoxetine 10mg Allergies 09/04/2022 Assessment & Plan (05/28/2025 9:16 AM EDT): On cetirizine/azelastine and benadryl, follow up as needed Resolved Problems Problem Noted Date Diagnosed Date Resolved Date Thickening of skin of breast 10/06/2024 03/18/2025 Musculoskeletal pain 10/06/2024 025 Assessment & Plan (10/06/2024 2:52 PM EST): Pt having pain in both hips and both shoulders which I suspect is musculoskeletal in nature +FABIR and +FADIR test, musculoskeletal pain is localized to hip, no associated back pain or sciatic pain Positive empty can test, likely tendonitis d/t pt hx and line of work Will obtain imaging of both shoulders and both hips to r/o fracture or malignancy (low suspicion) Will refer to physical therapy and ortho for further evaluation Will send meloxicam and voltaren gel for pain control Advised pt to stop oral diclofenac and ibuprofen while using above meds Pt may continue tylenol prn and flexeril prn for additional pain control F/u PRN for new or worsening conditions Influenza 08/23/2023 03/18/2025 Assessment & Plan (08/23/2023 11:43 AM EST): [...] Medication refill of Ibuprofen will be provided. Acute appendicitis with localized peritonitis 03/08/20 16 03/18/2025 Encounters Date Type Department Care Team Description 06/11/2025 9:30 AM EDT Procedure Visit [facility] MED & PEDS [address] [place] [address] Maurice Borrego CNP Urine test negative (Primary Dx); Encounter for cervical Pap smear with pelvic exam; Encounter for removal and reinsertion of intrauterine contraceptive device 06/11/2025 Travel 06/09/2025 Telephone [facility] MED & PEDS [address] [place] [address] Ab Pelaez MD chart prep 06/03/2025 Orders Only [facility] MED & PEDS [address] [place] [address] Mariam Phelps MD 06/01/2025 Orders Only [employer] [address] [place] [address] Mariam Phelps MD 05/25/2025 1:45 PM EDT Telemedicine [facility] MED & PEDS [address] [place] [address] Ab Pelaez MD Class 1 obesity (Primary Dx); Anxiety; Allergy, sequela 05/25/2025 Travel 05/18/2025 Travel 05/08/2025 Telephone [facility] MED & PEDS [address] [place] [address] Flavia Haile MD Nurse Triage 04/24/2025 Telephone [facility] MED & PEDS [address] [place] [address] Flavia Haile MD chart prep 04/24/2025 Telephone [facility] MED [facility] PEDS [address] [place] [address] Flavia Haile MD 04/24/2025 Orders Only [facility] MED & PEDS [address] [place] [address] Flavia Haile MD 04/23/2025 Telephone [facility] MEDICINE [address] [place] [address] Flavia Haile MD Prior Authorization 03/18/2025 11:15 AM EDT Telemedicine [facility] MED [facility] PEDS [address] [place] [address] Flavia Haile MD Depression, unspecified depression type (Primary Dx); Anxiety 03/18/2025 Travel from Last 3 Months Immunizations Immunization Administration Dates Next Due Influenza injectable quadriv alent IIV4 with preservative 07/04/2016 Influenza injectable quadriv alent preservative free 06/30/2021,05/21/2019 Influenza, IIV3, injectable 05/16/2011 Influenza, seasonal, injecta ble, preservative free 06/10/2024,05/16/2011 Pfizer Covid-19 Vaccine 12+ 09/13/2021,,01/08/2021 Tdap 07/04/2016,08/05/2011 Family History Medical History Relation Name Comments Thyroid disease Father Colon cancer Father's Sister Diabetes Mother Relation Name Status Comments Father Father's Sister Mother Social History Tobacco Use Types Packs/Day Years [...] Mass Index 29.28 06/11/2025 9:49 AM EDT Plan of Treatment Health Maintenance Due Date Last Done Comments HIV Screening 1986 Family Planning (PISQ) 2001 HPV Vaccines (1 - 3-dose series) 2001 Hepatitis B Vaccines (1 of 3 - 19+ 3-dose series) 2005 Pneumococcal Vaccine: Pediatrics (0 to 5 Years) and At-Risk Patients (6 to 49) Years (1 of 2 - PCV) 2005 Pap Smear 2007 Cervical Cancer Screening 2016 HPV/Cotest 2016 COVID-19 Vaccine ( season) 2025 09/13/2021, 02/02/2021, 01/08/2021 Influenza Vaccine (#1) 2025 , 06/30/2021, 05/21/2019, Additional history exists Depression Screening 01/16/2026 01/16/2025, 01/17/20 25 SDOH Screening 01/16/2026 01/16/2025 Disability Screening 05/18/2026 05/18/2025 Alcohol/Substance Use Screening 05/25/2026 05/25/2025 Tobacco Screening 05/25/2026 05/25/2025 DTaP/Tdap/Td Vaccines (3 - Td or Tdap) [...] 06/11/2025 10:16 AM EDT Urine test negative MN REMOVAL INTRAUTERINE DEVICE IUD Routine 06/11/2025 9:30 AM EDT Encounter for removal and reinsertion of intrauterine contraceptive device MN INSERTION INTRAUTERINE DEVICE IUD Routine 06/11/2025 9:30 AM EDT Encounter for removal and reinsertion of intrauterine contraceptive device XR CHEST 2 VIEWS Routine 06/01/2025 2:36 PM EDT ECG 12-LEAD Routine 06/01/2025 9:32 AM EDT HEPATITIS C AB W/REFL TO HCV RNA, QN, PCR Routine 12/11/2023 11:09 AM EDT PE (physical exam), annual LIPID PANEL, STANDARD Routine 12/11/2023 11:09 AM EDT Anxiety from Last 3 Months or Most Recently Relevant to Health Maintenance Results * POCT , urine manually resulted (06/11/2025 10:16 AM EDT) Preg Test, Ur Negative Negative, Indeterminate, None Detected, Invalid, Specimen unsatisfactory for evaluation, Weakly Positive, 2+ QC Media Lot # Comment:[id number] Lot# Expiration Date Comment:12/06/2025 QC TEST Comment:pass Urine 06/11/2025 10:1 6 AM EDT Maurice Borrego CNP POINT OF CARE TEST ENTER/ EDIT ORDERABLES Final Result * MN INSERTION INTRAUTERINE DEVICE IUD, MN REMOVAL INTRAUTERINE DEVICE IUD (06/11/2025 9:30 AM EDT) Narrative Maurice Borrego CNP - 06/11/2025 9:30 AM EDT Maurice Borrego CNP 06/11/2025 11:58 AM IUD Management Performed by: Janae Lou MD Authorized by: Maurice Borrego CNP Procedure: IUD removal and insertion Procedure comment: In Store Marketing Associate and assistance provided by Janae Lou MD Consent obtained by patient, parent, or legal power of business attorney - including discussion of procedure risks [...] CNP IN CLINIC/BEDSIDE ORDERAB LES Final Result * XR Chest 2 Views (06/01/2025 2:36 PM EDT) Anatomical Region Laterality Modality Chest Radiographic Adrienne ging Historical Provider IMG XR PROCEDURES Final R esult * ECG 12 lead (06/01/2025 9:32 AM EDT) Historical Provider ECG ORDERABLES Final Res ult * Hepatitis C Antibody with Reflex to HCV, RNA, Quantitative, Real-Time PCR (12/11/2023 11:09 AM EDT) Hepatitis C Antibody Nonreactive Nonreactive [facility] Comment:Antibodies to HCV no t detected; does not exclude early acuteHCV infection. Blood Venous blood specimen / Unknown 12/11/2023 11:09 AM EDT 12/11/2023 2:26 PM EDT Flavia Haile MD LAB BLOOD ORDERABLES Final Resul t [facility] [address] [place] [phone] * (ABNORMAL) Lipid Panel, Standard (12/11/2023 11:09 AM EDT) Triglycerides 75 <150 mg/dL [facility] Comment:Desirable Triglyceri de: less than 150 mg/dLBorderline High Triglyceride 150-199 mg/dLHigh Triglyceride: 200-499 mg/dLVery High Triglyceride: greater than or equal to 5OO mg/dL Cholesterol 157 <200 mg/dL [facility] Comment:Desirable Cholestero l: less than 200 mg/dLBorderline High Cholesterol: 200-239 mg/dLHigh Cholesterol: greater than 239 mg/dL LDL Cholesterol Calculated 107(H) <100 mg/dL [facility] Comment:Desirable LDL: less than 100 mg/dLNear Optimal/Above Optimal LDL: 110- 129 mg/dLBorderline High LDL: 130-159 mg/dLHigh LDL: 160-189 mg/dLVery High LDL: greater than or equal to 190 mg/dL HDL Cholesterol 35(L) >40 mg/dL [facility] Comment:Desirable HDL: great er than 40 mg/dL Note: This HDL assay may give artificially low results in patients with liver disease. Blood Venous blood specimen / Unknown 12/11/2023 11:09 AM EDT 12/11/2023 2:26 PM EDT us Flavia Haile MD LAB BLOOD ORDERABLES Final Resul t [facility] [address] [place] [address] [phone] from Last 3 Months or Most Recently Relevant to Health Maintenance [place] [address] [place] [address] 2 GENERIC OTHER Care Teams Biometric Screener Relationship Specialty Start Date End Date Ab Pelaez MD [address] [place] [phone] PCP - General Internal Medicine 05/25/25
--- OUTSIDE RECORDS SUMMARY | 2025-06-11 19:55 | XMS_ITS | Encounter Summary ---
Author Organization [employer] Address [address] [facility] 7t [place] [address] Care Team Providers Care Putty Glazer Name Role Phone Flavia Haile MD Primary Care Provider [phone] Ab Pelaez MD Primary Care Prov ider Reason for Visit * Reason Comments Med Refill Encounter Details Date Type Department Care Team ([facility] st Contact Info) Description 05/22/2023 Refill [facility] MED & PEDS [address] [place] [address] Venecia Carty MD [address] [place] [address] Social History Tobacco Use Types Packs/Day Years [...] documented as of this encounter Care Teams Putty Glazer Relationship Specialty Start Date End Date Flavia Haile MD [address] [place] [phone] PCP - General Family Medicine 07/04/16 05/24/25 Ab Pelaez MD [address] [place] [phone] PCP - General Internal Medicine 05/25/25 documented as of this encounter
== END 2025-06-11 18:40 | disposition home or self-care (01) ==
LOC: HO.LNP 18:39
DX: Z01.419 Encounter for gynecological examination (general) (routine) without abnormal findings (principal); Z11.51 Encounter for screening for human papillomavirus (HPV)
CPT/HCPCS: 87626; 88175

== ENCOUNTER 2025-07-07 13:04 | Outpatient (REF) | payer SELFPAY ==
--- OUTSIDE RECORDS SUMMARY | 2025-07-06 14:15 | XMS_ITS | Encounter Summary ---
Author Organization [employer] Address [address] [facility] 7 [place] [address] Care Team Providers Care Channel Marketing Coordinator Name Role Phone Ab Pelaez MD Primary Care Prov ider Encounter Details Date Type Department Care Team ([facility] st Contact Info) Description 07/06/2025 2:15 PM EST Telemedicine [facility] [address] [place], [place] [id number] Ab Pelaez MD [address] [place] [address] Obesity (BMI 30.0-34.9) (Primary Dx) Social History Tobacco Use Types [...] AM EDT documented as of this encounter Functional Status * Over the last 2 weeks, how often have you been bothered by any of the following problems? Question Answer Date of Assessment Author Feeling nervous, anxious, or on edge 3 06/27 1:49 PM Makeda Rees MA Not being able to stop or co ntrol worrying 3 07/06/2025 1:49 PM Makeda Rees MA Worrying too much about diff erent things 3 07/06/2025 1:49 PM Makeda Rese MA Trouble relaxing 3 07/06/2025 1:49 PM Makeda Tilley MA Being so restless that it is hard to sit still 3 07/06/2025 1:49 PM Makeda Rees MA Becoming easily annoyed or irritable 3 06/27 1:49 PM Makeda Rees MA Feeling afraid as if somethi ng awful might happen 3 07/06/2025 1:49 PM Makeda Rees MA ARLIN-7 Total Score 21 07/06/2025 1:49 PM Makeda Rees MA documented as of this encounter Plan of Treatment Scheduled Orders Name Type Priority Associated Diagnoses Orde r Schedule Iron And Total Iron Binding Capacity Lab Routine Obesity (BMI 30.0-34.9) Expected: 07/06/2025, Expires: 07/06/2026 Vitamin B12 (Cobalamin) and Folate Panel, Serum Lab Routine Obesity (BMI 30.0-34.9) Expected: 07/06/2025 (Approximate), Expires: 07/06/2026 TSH W/Reflex to FT4 Lab Routine Obesity (BMI 30.0-34.9) Expected: 07/06/2025 (Approximate), Expires: 07/06/2026 documented as of this encounter Procedures Procedure Name Priority Date/Time Associated Diagnosis Comments CBC WITH AUTO DIFFERENTIAL Routine 07/07/2025 1:05 PM EST Obesity (BMI 30.0-34.9) documented in this encounter Results * (ABNORMAL) CBC auto differential (07/07/2025 1:05 PM EST) White Blood Count 6.5 4.8 - 10.8 X10*3/uL [facility] Red Blood Count 3.91(L) 4.20 - 5.50 X10*6/uL [facility] Hemoglobin 12.8 12.0 - 16.0 g/dl [facility] Hematocrit 38.9 37.0 - 47.0 % [facility] Mean Corpuscular Volume 99.5(H) 80.0 - 98.0 fL [facility] Mean Corpuscular Hemoglobin 32.7 27.0 - 33.0 pg [facility] Mean Corpuscular HGB Conc 32.9 31.0 - 35.0 g/dl [facility] Red Cell Distribution Width 11.8 11.0 - 16.0 % [facility] Platelet Count 221 160 - 400 X10*3/uL [facility] Mean Platelet Volume 11.9 9.4 - 12.3 fL [facility] Neutrophils Percent Auto 64.2 45 - 73 % [facility] Imm Gran Pct Auto 0.3 0.0 - 0.4 % [facility] Lymphocytes Percent Auto 25.9 20 - 40 % [facility] Monocytes Percent Auto 7.5 2 - 11 % [facility] Eosinophils Percent Auto 1.2 0 - 4 % [facility] Basophils Percent Auto 0.9 0 - 2 % [facility] NRBC Pct Auto 0.0 0.0 - 0.2 /100WBC [facility] Neutrophils Absolute Auto 4.2 2.0 - 8.3 x10*3/uL [facility] Imm Gran Abs Auto 0.02 0.00 - 0.03 X10*3/uL [facility] Lymphocytes Absolute Auto 1.7 1.2 - 4.9 X10*3/uL [facility] Monocytes Absolute Auto 0.5 0.1 - 1.2 X10*3/uL [facility] Eosinophils Absolute Auto 0.1 0.0 - 0.4 X10*3/uL [facility] Basophils Absolute Auto 0.1 0.0 - 0.2 X10*3/uL [facility] NRBC Abs Auto 0.000 0.0 - 0.012 X10*3/uL [facility] Blood Venous blood specimen / Unknown 07/07/2025 1:05 PM EST 07/07/2025 2:10 PM EST us Ab Cast MD LAB BLOOD ORDERABL ES Final Result [facility] [address] [place] [phone] documented in this encounter Visit Diagnoses Diagnosis Obesity (BMI 30.0-34.9)- Primary documented in this encounter Additional Health Concerns Assessment Noted Time PHQ-9 Depression Total Score: 3 01/17/20 25 11:40 AM EDT documented as of this encounter Care Teams Channel Marketing Coordinator Relationship Specialty Start Date End Date Ab Pelaez MD [address] [place] [phone] PCP - General Internal Medicine 05/25/25 documented as of this encounter
[2025-07-07 14:12] LABS: MANUAL DIFF FLAG NO
[2025-07-07 14:19] LABS: Hematocrit 38.9 % (37.0-47.0); Hemoglobin 12.8 g/dl (12.0-16.0); Imm Gran Abs Auto 0.02 X10*3/uL (0.00-0.03); Imm Gran Pct Auto 0.3 % (0.0-0.4); Lymphocytes Absolute Auto 1.7 X10*3/uL (1.2-4.9); Mean Corpuscular HGB Conc 32.9 g/dl (31.0-35.0); Mean Corpuscular Hemoglobin 32.7 pg (27.0-33.0); Mean Corpuscular Volume 99.5 fL (80.0-98.0); NRBC Abs Auto 0.000 X10*3/uL (0.0-0.012); NRBC Pct Auto 0.0 /100WBC (0.0-0.2); Platelet Count 221 X10*3/uL (160-400); Red Blood Count 3.91 X10*6/uL (4.20-5.50); White Blood Count 6.5 X10*3/uL (4.8-10.8)
--- OUTSIDE RECORDS SUMMARY | 2025-07-07 14:50 | XMS_ITS | Encounter Summary ---
Author Organization [employer] Address [address] [facility] 7t [place] [address] Care Team Providers Care Sql Server Dba Developer Name Role Phone Flavia Haile MD Primary Care Provider Ab Pelaez MD Primary Care Prov ider Reason for Visit * Reason Onset Date Comments Nurse Triage 05/08/2025 Encounter Details Date Type Department Care Team ([facility] st Contact Info) Description 05/08/2025 Telephone C [facility] [address] [place] [address] Flavia Haile MD [address] [place] [address] Nurse Triage Social History Tobacco Use Types [...] RN - 05/08/2025 1:50 PM EDT No consulting practice manager needed as this personal lines underwriter speaks Afghan. Call returned to [facility]re [facility] to triage below at [phone]. Reports having an allergic reaction to a possible deodorant. Per pt had swelling of lip. No swelling of tongue, difficulty swallowing. Denies any rash. Pt takes Benadryl nightly. Pt states intermittent swelling. Pt has not taken Benadryl today. Pt advised of disposition, agrees to seek [facility] for evaluation. Reviewed [facility] operating hours and that wait times [...] caller accepted this outcome. Contact pt at [phone] (libyan) documented in this encounter Plan of Treatment Not on file documented as of this encounter Visit Diagnoses Not on filedocumented in this encounter Additional Health Concerns Assessment Noted Time PHQ-9 Depression Total Score: 3 01/17/20 11:40 AM EDT documented as of this encounter Care Teams Sql Server Dba Developer Relationship Specialty Start Date End Date Flavia Haile MD [address] [place] [phone] PCP - General Family Medicine 07/04/16 05/24/25 Ab Pelaez MD [address] [place] [phone] PCP - General Internal Medicine 05/25/25 documented as of this encounter
--- OUTSIDE RECORDS SUMMARY | 2025-07-07 14:50 | XMS_ITS | Encounter Summary ---
Author Organization [facility] Address [address] [place] [address] 7 [place] [address] Care Team Providers Care Plant Production Worker Name Role Phone Flavia Haile MD Primary Care Provider [phone] Ab Pelaez MD Primary Care Prov ider [...] on filedocumented in this encounter Care Teams Plant Production Worker Relationship Specialty Start Date End Date Flavia Haile MD [address] [place] [id number] PCP - General Family Medicine 07/04/16 05/24/25 Ab Pelaez MD [address] [place] [phone] PCP - General Internal Medicine 05/25/25 documented as of this encounter
--- OUTSIDE RECORDS SUMMARY | 2025-07-07 14:50 | XMS_ITS | Encounter Summary ---
Author Organization [employer] Address [address] [place] [address] 7[address] [place] [address] Care Team Providers Care Accounting Software Specialist Name Role Phone Flavia Haile MD Primary Care Provider [phone] Ab Pelaez MD Primary Care Prov ider Reason for Referral * Consultation (Routine) - Closed Specialty Diagnoses / Procedures Referred By Contac t Referred To Contact Breast Surgery Diagnoses Fibroadenoma of right breast Venecia Carty MD [address] [place] [phone] Phone: tel: fax: [facility] [address] [facility] 3rd Floor [address] [place] [address] Phone: tel: fax: Referral ID Status Reason Start Date Expiration Date V isits Requested Visits Authorized [id number] Closed Specialty Services Required 02/27/2024 02/26/2025 1 1 Encounter Details Date Type Department Care Team (Late st Contact Info) Description 02/27/2024 Orders Only [facility] [address] [place] [address] Venecia Carty MD [address] [place] [address] Fibroadenoma of right breast (Primary Dx) Social [...] documented as of this encounter Care Teams Accounting Software Specialist Relationship Specialty Start Date End Date Flavia Haile MD [address] [place] [phone] PCP - General Family Medicine 07/04/16 05/24/25 Ab Pelaez MD [address] [place] [phone] PCP - General Internal Medicine 05/25/25 documented as of this encounter
--- OUTSIDE RECORDS SUMMARY | 2025-07-07 14:50 | XMS_ITS | Encounter Summary ---
Author Organization [employer] Address [address] [facility] 7t [place] [address] Care Team Providers Care Cutter Operator Tile Name Role Phone Ab Pelaez MD Primary Care Prov ider Encounter Details Date Type Department Care Team (Late st Contact Info) Description 06/01/2025 Orders Only [facility] [address] [place] [address] Provider, MD Mariam Social History Tobacco Use [...] documented as of this encounter Care Teams Cutter Operator Tile Relationship Specialty Start Date End Date Ab Pelaez MD [address] [place] [phone] PCP - General Internal Medicine 05/25/25 documented as of this encounter
--- OUTSIDE RECORDS SUMMARY | 2025-07-07 14:50 | XMS_ITS | Clinical Summary ---
Author Organization [facility] Address [address] [place] [address] Phone Care Team Providers Care Bit Grinder Name Role Phone Ab Pelaez Primary Care [...] day for 15 days. 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 Resolved Problems Problem Noted Date Diagnosed Date Resolved Date Acute appendicitis with localized peritonitis 03/08/20 16 08/07/2024 Encounters Date Type Department Care Team Description 06/12/2025 10:21 AM EDT - 06/12/2025 3:09 PM EDT Emergency Emergency [address] [place] [address] Kaylynn Batista MD Chest pain, unspecified type (Primary Dx); Near syncope Discharge Disposition: Home or Self Care 06/01/2025 1:04 AM EDT - 06/01/2025 3:39 AM EDT Emergency Emergency [address] [place] [phone] Chest pain with low risk for cardiac [...] Date Smoking Tobacco: Every Day Cigarettes 0.5 12.9 Started: 08/07/2012 Tobacco Cessation:Ready to Q uit: [...] Sign Reading Time Taken Comments Blood Pressure 111/65 06/12/2025 10:26 AM EDT Pulse 76 06/12/2025 10:26 AM EDT Temperature 36.6 C (97.9 F) 06/12/2025 10:26 AM EDT Respiratory Rate 20 06/12/2025 10:26 AM EDT Oxygen Saturation 100% 06/12/2025 10:26 AM EDT Inhaled Oxygen Concentration - - Weight 74.4 kg (164 lb) 06/12/2025 10:26 AM EDT Height 160 cm (5' 3 ) 06/12/2025 10:26 AM EDT Body Mass Index 29.05 06/12/2025 10:26 AM EDT Plan of Treatment Health Maintenance [...] this topic Medical Devices Implanted Type Area Community Ambassador Device Identifier Shelf Expiration Date Model / Serial / Lot Hemostat Flour Collgn 1gm [employer]it[employer] - Sn/A - [id number] Implanted:Qty: 1 on 09/17/2024 by Herminio Richards MD at [facility] Hemostasis Right: Breast CR BARD - DAVOL DIV [id number] 06/23/2027 [id number] / N/A / [id number] Procedures Procedure Name Priority Date/Time Associated Diagnosis Comments ECG ANNOTATED 06/13/2025 CT ANGIO CHEST WO AND/OR W CONTRAST STAT 06/12/2025 1:37 PM EDT Chest pain, unspecified type ECG 12-LEAD STAT 06/12/2025 12:56 PM EDT D-DIMER STAT 06/12/2025 12:08 PM EDT TROPONIN I HIGH SENSITIVITY Timed 06/12/2025 12:08 PM EDT XR CHEST 2 VIEWS STAT 06/12/2025 11:5 0 AM EDT CBC WITH AUTO DIFFERENTIAL STAT 06/12/2025 10:57 AM EDT MAGNESIUM STAT 06/12/2025 10:57 AM EDT LIPASE STAT 06/12/2025 10:57 AM EDT COMPREHENSIVE METABOLIC PANEL STAT 06/12/2025 10:57 AM EDT CBC AND DIFFERENTIAL STAT 06/12/2025 10:57 AM EDT TROPONIN I HIGH SENSITIVITY Timed 06/12/2025 10:57 AM EDT POC , URINE DIAGNOSTIC STAT 06/12/2025 10:47 AM EDT ECG 12-LEAD STAT 06/12/2025 10:46 AM EDT ECG ANNOTATED 06/02/2025 ECG 12-LEAD STAT 06/01/2025 [...] HIGH SENSITIVITY Timed 06/01/2025 1:13 AM EDT HM PAP SMEAR Routine 12/04/2018 from Last 3 Months or Most Recently Relevant to Health Maintenance Results * ECG-Annotated (06/13/2025) Only the most recent of2 resultswithin the time period is included. us Provider Onbase MD ECG ORDERABLES Final Result * CT Angio Chest wo and/or w Contrast (06/12/2025 1:37 PM EDT) Anatomical Region Laterality Modality Body Computed Tomogra phy 06/12/2025 1:52 PM EDT Impressions 06/12/2025 2:04 PM EDT No pulmonary arterial emboli. No acute findings in the chest. -------- FINAL REPORT -------- Dictated By: JANA ROSSI Dictated Date: 06/12/2025 13:52 ET Assigned Physician: JANA ROSSI Reviewed and Electronically Signed By: JANA ROSSI Signed Date: 06/12/2025 14:04 ET Workstation ID: [id number] Transcribed By: Self Edit Transcribed Date: 06/12/2025 13:52 ET Narrative 06/12/2025 2:04 PM EDT PROCEDURE: Chest CTA INDICATION: Dyspnea, chest pain TECHNIQUE: Chest CTA with intravenous administration of 90cc ISOVUE 370. Multi planar reformats were created and interpreted. The examination was performed utilizing dose reduction techniques.3-D or MIP images were produced with postprocessing on an independent computer workstation. Total DLP 435 COMPARISON: Same day radiograph. FINDINGS: CTA: No pulmonary arterial emboli. Thoracic aorta is normal in size. No dissection. No coronary artery calcifications. Exam was not tailored to evaluate the coronary arteries. LUNGS/PLEURA: Central airways are patent. Bibasilar atelectasis. No pleural effusion or pneumothorax. Thyroid gland is normal. No mediastinal or hilar lymphadenopathy. Esophagus is normal. Cardiac chambers are normal in size. No pericardial effusion. MEDIASTINUM: No pulmonary arterial emboli. Thyroid gland is unremarkable. No mediastinal or hilar lymphadenopathy. Cardiac chambers are normal in size. No pericardial effusion. Esophagus is normal. CHEST WALL: No axillary lymphadenopathy or superficial hematoma. UPPER ABDOMEN:The visualized portions of the upper abdomen are unremarkable. BONES: Bones are normal. Procedure Note Jana Rossi MD - 06/12/2025 PROCEDURE: Chest CTA INDICATION: Dyspnea, chest pain TECHNIQUE: Chest CTA with intravenous administration of 90cc ISOVUE 370.Multi planar reformats were created and interpreted. The examination wasperformed utilizing dose reduction techniques.3-D or MIP images wereproduced with postprocessing on an independent computer workstation.Total DLP 435 COMPARISON: Same day radiograph. FINDINGS: CTA: No pulmonary arterial emboli. Thoracic aorta is normal in size. Nodissection. No coronary artery calcifications. Exam was not tailored toevaluate the coronary arteries. LUNGS/PLEURA: Central airways are patent. Bibasilar atelectasis. Nopleural effusion or pneumothorax. Thyroid gland is normal. Nomediastinal or hilar lymphadenopathy. Esophagus is normal. Cardiacchambers are normal in size. No pericardial effusion. MEDIASTINUM: No pulmonary arterial emboli. Thyroid gland is unremarkable.No mediastinal or hilar lymphadenopathy. Cardiac chambers are normal insize. No pericardial effusion. Esophagus is normal. CHEST WALL: No axillary lymphadenopathy or superficial hematoma. UPPER ABDOMEN:The visualized portions of the upper abdomen areunremarkable. BONES: Bones are normal. IMPRESSION: No pulmonary arterial emboli. No acute findings in the chest. -------- FINAL REPORT -------- Dictated By: JANA ROSSI Dictated Date: 06/12/2025 13:52 ET Assigned Physician: JANA ROSSI Reviewed and Electronically Signed By: JANA ROSSI Signed Date: 06/12/2025 14:04 ET Workstation ID: [id number] Transcribed By: Self Edit Transcribed Date: 06/12/2025 13:52 ET Kaylynn Batista MD IMG CT PROCEDURES Final Result * ECG 12 lead (06/12/2025 12:56 PM EDT) Only the most recent of3 resultswithin the time period is included. Ventricular Rate ECG 63 BPM GEMUSE Atrial Rate 63 BPM GEMUSE P-R Interval 174 ms GEMUSE QRS Duration 84 ms GEMUSE Q-T Interval 420 ms GEMUSE QTc 429 ms GEMUSE P Wave [place] 56 degrees GEMUSE R [place] 16 degrees GEMUSE T [place] 26 degrees GEMUSE ECG Interpretation Normal sinus rhythm Normal ECG When compared with ECG of 12-JUN-2025 10:46, (unconfirmed) No significant change was found Confirmed by HUMBERTO LEHMAN ([id number]) on 06/13/2025 6:20:31 PM GEMUSE 06/12/2025 12:5 6 PM EDT 06/13/2025 6:20 PM EDT us Kalpesh Clemons MD ECG ORDERABLES Final Result GEMUSE * Troponin I high sensitivity (06/12/2025 12:08 PM EDT) Only the most recent of4 resultswithin the time period is included. High Sensitivity Troponin I 8 <=54 ng/L LAB CHEMISTRY METHOD 06/12/2025 1:10 PM EDT [facility] Blood Venous blood specimen / Unknown Venipuncture / Unknown 06/12/2025 12:08 PM EDT 06/12/2025 12:33 PM EDT [facility] - 06/12/2025 1:10 PM EDT High levels of biotin in samples may falsely decrease hsTroponin values. Use caution when interpreting hsTroponin results in patients taking biotin who exhibit renal impairment (eGFR <60) or in patients taking more than 20 mg/day of biotin. us Kalpesh Clemons MD LAB BLOOD ORDERABLES Final Resul t Performing Organization Address [facility] Co de Phone Number [facility] [address] [place] [address], * (ABNORMAL) D-dimer, quantitative (06/12/2025 12:08 PM EDT) [facility] D-Dimer, Quant (D-DU) 316(H) <=230 ng/mL DDU LAB COAGULATION METHOD 06/12/2025 12:50 PM EDT [facility] Blood Venous blood specimen / Unknown Venipuncture / Unknown 06/12/2025 12:08 PM EDT 06/12/2025 12:34 PM EDT [facility] - 06/12/2025 12:50 PM EDT D-Dimer <230 ng/mL (D-Dimer units) is the threshold for exclusion of DVT/PE. D-Dimer may be elevated in: Critically ill, severely infected, trauma patients, DIC, acute CVA, acute IL, unstable angina, AF, old age, , and smoking. D-Dimer may be decreased with: Initiation of heparin therapy and oral anticoagulants. us Kaylynn Batista MD LAB BLOOD ORDERABLES Final Resul t Performing Organization Address City/[facility]/ZIP Co de Phone Number [facility] [address] [place] [address], [place] [phone] * XR Chest 2 Views (06/12/2025 11:50 AM EDT) Only the most recent of2 resultswithin the time period is included. Anatomical Region Laterality Modality Body Radiographic Adrienne ging 06/12/2025 11:5 2 AM EDT Impressions 06/12/2025 11:52 AM EDT Normal chest radiographs. -------- FINAL REPORT -------- Dictated By: Fredy Milton Dictated Date: 06/12/2025 11:52 ET Assigned Physician: Fredy Milton Reviewed and Electronically Signed By: Fredy Milton Signed Date: 06/12/2025 11:52 ET Workstation ID: [id number] Transcribed By: Self Edit Transcribed Date: 06/12/2025 11:52 ET Narrative 06/12/2025 11:52 AM EDT PROCEDURE: PA and lateral radiographs of the chest. HISTORY: chest pain. COMPARISON: 06/01/2025. FINDINGS: The heart, mediastinum, lungs, pleural spaces, and bony thorax are normal. Procedure Note Fredy Milton MD - 06/12/2025 PROCEDURE: PA and lateral radiographs of the chest. HISTORY: chest pain. COMPARISON: 06/01/2025. FINDINGS: The heart, mediastinum, lungs, pleural spaces, and bony thorax arenormal. IMPRESSION: Normal chest radiographs. -------- FINAL REPORT -------- Dictated By: Fredy Milton Dictated Date: 06/12/2025 11:52 ET Assigned Physician: Fredy Milton Reviewed and Electronically Signed By: Fredy Milton Signed Date: 06/12/2025 11:52 ET Workstation ID: [id number] Transcribed By: Self Edit Transcribed Date: 06/12/2025 11:52 ET Kalpesh Clemons MD IMG XR PROCEDURES Final Result * (ABNORMAL) CBC auto differential (06/12/2025 10:57 AM EDT) Only the most recent of2 resultswithin the time period is included. [facility] WBC 8.2 4.8 - 10.8 K/mcL LAB HEMETOLOGY METHOD 06/12/2025 11:56 AM [facility] RBC 3.70(L) 3.80 - 4.80 M/mcL LAB HEMETOLOGY METHOD 06/12/2025 11:56 AM [facility] Hemoglobin 12.2 11.5 - 16.0 g/dL LAB HEMETOLOGY METHOD 06/12/2025 11:56 AM [facility] Hematocrit 36.9 35.0 - 47.0 % LAB HEMETOLOGY METHOD 06/12/2025 11:56 AM [facility] MCV 99.7(H) 79.0 - 98.0 FL LAB HEMETOLOGY METHOD 06/12/2025 11:56 AM [facility] MCH 33.0(H) 27.0 - 32.0 pcg LAB HEMETOLOGY METHOD 06/12/2025 11:56 AM [facility] MCHC 33.1 32.0 - 37.0 g/dL LAB HEMETOLOGY METHOD 06/12/2025 11:56 AM [facility] RDW 11.5 11.0 - 15.0 % LAB HEMETOLOGY METHOD 06/12/2025 11:56 AM [facility] Platelets 156 130 - 400 K/mcL LAB HEMETOLOGY METHOD 06/12/2025 11:56 AM [facility] MPV 12.4(H) 7.0 - 11.0 FL LAB HEMETOLOGY METHOD 06/12/2025 11:56 AM [facility] NRBC 0.0 <1.0 % LAB HEMETOLOGY METHOD 06/12/2025 11:56 AM EDT [facility] NRBC Absolute 0.00 <0.10 K/mcL LAB HEMETOLOGY METHOD 06/12/2025 11:[facility] Neutrophils Relative 74.8 % LAB HEMETOLOGY METHOD 06/12/2025 11:56 AM [facility] Lymphocytes Relative 16.7 % LAB HEMETOLOGY METHOD 06/12/2025 11:56 [facility] Monocytes Relative 7.3 % LAB HEMETOLOGY METHOD 06/12/2025 11:56 AM [facility] Eosinophils Relative 0.4 % LAB HEMETOLOGY METHOD 06/12/2025 11:56 AM [facility] Basophils Relative 0.6 % LAB HEMETOLOGY METHOD 06/12/2025 11:56 AM [facility] Immature Granulocytes Relative 0.2 % LAB HEMETOLOGY METHOD 06/12/2025 11:56 AM [facility] Neutrophils Absolute 6.16 1.50 - 7.00 K/mcL LAB HEMETOLOGY METHOD 06/12/2025 11:56 AM [facility] Lymphocytes Absolute 1.38 1.00 - 5.00 K/mcL LAB HEMETOLOGY METHOD 06/12/2025 11:56 AM [facility] Monocytes Absolute 0.60 0.20 - 1.00 K/mcL LAB HEMETOLOGY METHOD 06/12/2025 11:56 AM [facility] Eosinophils Absolute 0.03 0.00 - 0.50 K/mcL LAB HEMETOLOGY METHOD 06/12/2025 11:56 AM [facility] Basophils Absolute 0.05 0.00 - 0.20 K/mcL LAB HEMETOLOGY METHOD 06/12/2025 11:56 AM [facility] Immature Granulocytes Absolute 0.02 0.00 - 0.03 K/mcL LAB HEMETOLOGY METHOD 06/12/2025 11:56 AM EDT [facility] Blood Venous blood specimen / Unknown Venipuncture / Unknown 06/12/2025 10:57 AM EDT 06/12/2025 11:50 AM EDT us Kalpesh Clemons MD LAB BLOOD ORDERABLES Final Resul t Performing Organization Address City/[facility] de Phone Number [facility] [address] [place] [address], [place] [phone] * (ABNORMAL) Magnesium (06/12/2025 10:57 AM EDT) Only the most recent of2 resultswithin the time period is included. Magnesium 1.7(L) 1.9 - 2.6 mg/dL LAB CHEMISTRY METHOD 06/12/2025 12:18 PM EDT [facility] Blood Venous blood specimen / Unknown Venipuncture / Unknown 06/12/2025 10:57 AM EDT 06/12/2025 11:50 AM EDT us Kalpesh Clemons MD LAB BLOOD ORDERABLES Final Resul t Performing Organization Address [facility] de Phone Number [facility] [address] [place] [address], [place] [phone] * Lipase (06/12/2025 10:57 AM EDT) Only the most recent of2 resultswithin the time period is included. Lipase 30 13 - 75 unit/L LAB CHEMISTRY METHOD 06/12/2025 12:18 PM EDT [facility] Blood Venous blood specimen / Unknown Venipuncture / Unknown 06/12/2025 10:57 AM EDT 06/12/2025 11:50 AM EDT us Kalpesh Clemons MD LAB BLOOD ORDERABLES Final Resul t Performing Organization Address City/[facility] de Phone Number [facility] [address] [place] [address], [place] [phone] * (ABNORMAL) Comprehensive metabolic panel (06/12/2025 10:57 AM EDT) Only the most recent of2 resultswithin the time period is included. Sodium 141 133 - 145 mmol/L LAB CHEMISTRY METHOD 06/12/2025 12:40 PM EDT [facility] Potassium 3.4(L) 3.5 - 5.5 mmol/L LAB CHEMISTRY METHOD 06/12/2025 12:[facility] Chloride 110 96 - 110 mmol/L LAB CHEMISTRY METHOD 06/12/2025 12:40 PM [facility] CO2 23 21 - 32 mmol/L LAB CHEMISTRY METHOD 06/12/2025 12:40 PM [facility] Anion Gap 8 3 - 11 LAB CHEMISTRY METHOD 06/12/2025 12:40 PM [facility] Glucose 88 70 - 100 mg/dL LAB CHEMISTRY METHOD 06/12/2025 12:40 PM [facility] BUN 8 5 - 25 mg/dL LAB CHEMISTRY METHOD 06/12/2025 12:40 PM [facility] Creatinine 0.69 0.50 - 1.10 mg/dL LAB CHEMISTRY METHOD 06/12/2025 12:[facility] eGFR 113 >=60 mL/min/1. 73m2 LAB CHEMISTRY METHOD 06/12/2025 12:40 PM [facility] Comment:Calculation based on the Chronic Kidney Disease Epidemiology Collaboration (CKD-EPI) equation refit without adjustment for race. BUN/Creatinine Ratio 11.6 LAB CHEMISTRY METHOD 06/12/2025 12:40 PM [facility] Calcium 9.0 8.5 - 10.5 mg/dL LAB CHEMISTRY METHOD 06/12/2025 12:40 PM [facility] AST (SGOT) 15 10 - 42 unit/L LAB CHEMISTRY METHOD 06/12/2025 12:40 PM EDT [facility] ALT (SGPT) 17 10 - 60 unit/L LAB CHEMISTRY METHOD 06/12/2025 12:40 PM EDT [facility] Alkaline Phosphatase 76 42 - 121 unit/L LAB CHEMISTRY METHOD 06/12/2025 12:40 PM EDT [facility] Total Protein 6.8 6.0 - 8.0 g/dL LAB CHEMISTRY METHOD 06/12/2025 12:40 PM EDT [facility] Albumin 3.9 3.2 - 5.0 g/dL LAB CHEMISTRY METHOD 06/12/2025 12:40 PM EDT [facility] Total Bilirubin 1.0 0.0 - 1.4 mg/dL LAB CHEMISTRY METHOD 06/12/2025 12:40 PM EDT [facility] Comment:Results verified by repeat testing Blood Venous blood specimen / Unknown Venipuncture / Unknown 06/12/2025 10:57 AM EDT 06/12/2025 11:50 AM EDT us Kalpesh Clemons MD LAB BLOOD ORDERABLES Final Resul t [facility] [address] [place] [address], * POC , urine manually resulted (06/12/2025 10:47 AM EDT) Only the most recent of2 resultswithin the time period is included. HCG, Ur POC Negative Negative POC hCG Int QC Pass? Yes Yes Urine Urine specimen obtained by clean catch procedure / Unknown 06/12/2025 10:47 AM EDT us Kalpesh Clemons MD POINT OF CARE TEST ENTER/EDIT OR DERABLES Final Result * B-type natriuretic peptide (06/01/2025 1:13 AM EDT) BNP 11 <=100 pcg/mL LAB CHEMISTRY METHOD 06/01/2025 2:36 AM EDT [facility] Blood Venous blood specimen / Unknown Venipuncture / Unknown 06/01/2025 1:13 AM EDT 06/01/2025 2:02 AM EDT Kaylynn BROWN LAB BLOOD ORDERABLES Fin al Result [facility] [address] [place] [address], [place] [phone] * Pap Smear (12/04/2018) Pathologist [facility] Pap smear Abstracted, no interpretation Historical Provider MD HEALTH MAINTENANCE Final Result from Last 3 Months or Most Recently Relevant to Health Maintenance Insurance [facility] Advance Directives * Full Code - [...] currently active code status orders. Care Teams Bit Grinder Relationship Specialty Start Date End Date Ab Pelaez [address] [place] [id number] PCP - General Internal Medicine 06/01/25
--- OUTSIDE RECORDS SUMMARY | 2025-07-07 14:51 | XMS_ITS | Encounter Summary ---
Author Organization [email or web address] Address [address] [place] [address] Care Team Providers Care Enterprise Application Analyst Name Role Phone Ab Pelaez MD Primary Care Prov ider Reason for Visit * Reason Onset Date Comments Lab Orders 07/03/2025 Encounter Details Date Type Department Care Team ([facility] st Contact Info) Description 07/03/2025 Telephone [facility] [address] [place] [address] bA Pelaez MD [address] [place] [id number] Lab Orders Social History Tobacco Use Types Packs/Day Years [...] erent things 3 07/06/2025 1:49 PM Makeda Rees [place] Trouble relaxing 3 07/06/2025 1:49 PM [...] Rees [place] documented as of this encounter Miscellaneous Notes * Telephone Encounter - Dolores Eduardo - 07/03/2025 9:46 AM EST TC from pt requesting hormone level test. PCP Dr. Duron documented in this encounter Plan of Treatment Not on file documented as of this encounter Visit Diagnoses Not on filedocumented in this encounter Additional Health Concerns Assessment Noted Time PHQ-9 Depression Total Score: 3 01/17/20 11:40 AM EDT documented as of this encounter Care Teams Enterprise Application Analyst Relationship Specialty Start Date End Date Ab Pelaez MD [address] [place] [id number] PCP - General Internal Medicine 05/25/25 documented as of this encounter
--- OUTSIDE RECORDS SUMMARY | 2025-07-07 14:51 | XMS_ITS | Encounter Summary ---
Author Organization [employer] Address [address] [facility] [address] [place] [address] Care Team Providers Care Crown Attacher Name Role Phone Flavia Haile MD Primary Care Provider [phone] Ab Pelaez MD Primary Care Prov ider Reason for Visit * Reason Onset Date Comments Referral 05/13/2024 Encounter Details Date Type Department Care Team (Late st Contact Info) Description 05/13/2024 Telephone [facility] [address] [place] [address] Flavia Haile MD [address] [place] [address] Referral Social History Tobacco Use Types Packs/Day [...] referral that was discussed in last about singer songwriter does not see anything generated documented in this encounter Plan of Treatment Not on file documented as of this encounter Visit Diagnoses Not on filedocumented in this encounter Additional Health Concerns Assessment Noted Time PHQ-9 Depression Total Score: 7 10/13/19 23 11:17 AM EST documented as of this encounter Care Teams Crown Attacher Relationship Specialty Start Date End Date Flavia Haile MD [address] [place] [address] PCP - General Family Medicine 07/04/16 05/24/25 Ab Pelaez MD [address] [place] [id number] PCP - General Internal Medicine 05/25/25 documented as of this encounter
--- OUTSIDE RECORDS SUMMARY | 2025-07-07 14:51 | XMS_ITS | Encounter Summary ---
Author Organization [employer] Address [address] [facility] [address] [place] [address] Care Team Providers Care Manufacturing Management Associate Name Role Phone Ab Pelaez MD Primary Care Prov ider Encounter Details Date Type Department Care Team (Latest Contact Info) Description 07/06/2025 Travel Social History Tobacco Use Types Packs/Day [...] [place] Trouble relaxing 3 07/06/2025 1:49 PM EST Makeda Dodd [place] Being so restless that it is [...] documented as of this encounter Care Teams Manufacturing Management Associate Relationship Specialty Start Date End Date Ab Pelaez MD [address] [facility] [place] [address] PCP - General Internal Medicine 05/25/25 documented as of this encounter
--- OUTSIDE RECORDS SUMMARY | 2025-07-07 14:51 | XMS_ITS | Encounter Summary ---
Author Organization [employer] Address [address] [facility] 7 [place] [address] Care Team Providers Care Steam Pan Sponger Name Role Phone Ab Pelaez MD Primary Care Prov ider Reason for Visit * Reason Onset Date Comments Nurse Triage 07/03/2025 Encounter Details Date Type Department Care Team ([facility] st Contact Info) Description 07/03/2025 Telephone [facility] MEDICINE [address] [place] [address] Ab Pelaez MD [address] [place] [phone] Nurse Triage Social History Tobacco Use Types [...] encounter Miscellaneous Notes * Telephone Encounter - Yovana Chavez RN - 07/03/2025 10:25 AM EST Patient reports persistent anxiety symptoms and an increase in panic attacks since 06/01, despite ongoing follow-up with Psychiatry and current medications. The most recent panic attacks occurred on Sunday, 06/29, and Sunday, 07/02. Patient expresses concern that symptoms may be related to thyroid or menopausal changes rather thananxiety alone. She reports a family history of thyroid disease and notes that her last TSH was checked approximately 9 months ago. Patient requests evaluation and possible testing for thyroid and menopause- related causes. Patient currently feels ok but always nervous. Denies SI/ HI at this time. Has crisis and Psychiatrist numbers and is aware when to use them. Plan: Televisit scheduled with PCP on 07/06/25 at 2:15 PM to discuss symptoms and testing. Patient advised to continue current psychiatric follow-up and medications as prescribed. Patient verbalized understanding and agreed with the plan. Protocol Used: Anxiety and Panic Attack (Adult) Protocol-Based Disposition: See in Office or Video Visit within 3 Days Video visit offered and caller accepted Positive Triage Questions: * Moderate anxiety (e.g., persistent or frequent anxiety symptoms; interferes with sleep, school, or work) * Started on anti-anxiety medication and no relief * Patient wants to be seen * All higher-acuity triage questions were negative Care Advice Discussed: * Reasons To Call Back - Anxiety or panic attacks continue - You feel like harming yourself - You become worse * [facility] - 988 Suicide and Crisis Lifeline * Reasons To Call Back - You have more questions * Telephone Encounter - Dolores Eduardo - 07/03/2025 9:43 AM EST Symptom: Anxiety or Panic Attack Outcome: Schedule an urgent appointment (within 4 hours) or talk to a nurse or provider soon Reason: Anxiety keeps from normal daily activities (such as school or work) The caller accepted this outcome. PCP DR. Duron Malaysian speaker documented in this encounter Plan of Treatment Not on file documented as of this encounter Visit Diagnoses Not on filedocumented in this encounter Additional Health Concerns Assessment Noted Time PHQ-9 Depression Total Score: 3 01/17/20 25 11:40 AM EDT documented as of this encounter Care Teams Steam Pan Sponger Relationship Specialty Start Date End Date Ab Pelaez MD [address] [place] [phone] PCP - General Internal Medicine 05/25/25 documented as of this encounter
--- OUTSIDE RECORDS SUMMARY | 2025-07-07 14:51 | XMS_ITS | Encounter Summary ---
Author Organization [employer] Address 75 [facility] 7t [place] [address] Care Team Providers Care Cargo And Container Inspector Name Role Phone Flavia Haile MD Primary Care Provider [phone] Ab Pelaez MD Primary Care Prov ider Reason for Visit * Reason Onset Date Comments Prior Authorization 04/23/2025 Encounter Details Date Type Department Care Team (Late st Contact Info) Description 04/23/2025 Telephone [facility] MEDICINE [address] [place] [address] Flavia Haile MD [address] [place] [address] Prior Authorization Social History Tobacco Use Types [...] - 04/23/2025 10:36 AM EDT TC from [facility] latia Bui requesting PA for Semaglutide-Weight Management [...] documented as of this encounter Care Teams Cargo And Container Inspector Relationship Specialty Start Date End Date Flavia Haile MD [address] [place] [address] PCP - General Family Medicine 07/04/16 05/24/25 Ab Pelaez MD [address] [place] [address] PCP - General Internal Medicine 05/25/25 documented as of this encounter
--- OUTSIDE RECORDS SUMMARY | 2025-07-07 14:51 | XMS_ITS | Encounter Summary ---
Author Organization [employer] Address 75 [facility] 7t [place] [address] Care Team Providers Care District Branch Manager Name Role Phone Ab Pelaez MD Primary Care Prov ider Encounter Details Date Type Department Care Team (Late st Contact Info) Description 06/03/2025 Orders Only [facility] CHC MED & PEDS [address] [place] [address] Provider, MD Mariam Social History Tobacco Use [...] documented as of this encounter Care Teams District Branch Manager Relationship Specialty Start Date End Date Ab Pelaez MD [address] [place] [address] PCP - General Internal Medicine 05/25/25 documented as of this encounter
--- OUTSIDE RECORDS SUMMARY | 2025-07-07 14:51 | XMS_ITS | Encounter Summary ---
Author Organization [employer] Address 75 [facility] 7t [place] [address] Care Team Providers Care Bumper Operator Name Role Phone Ab Pelaez MD Primary Care Prov ider Encounter Details Date Type Department Care Team (Late st Contact Info) Description 06/16/2025 Orders Only [facility] [address] [place] [address] Provider, MD Mariam Social History Tobacco Use [...] Procedure Name Priority Date/Time Associated Diagnosis Comments CT CHEST ANGIO W AND WO IV CONTRAST Routine 06/12/2025 3:01 PM EDT documented in this encounter Results * CT CHEST ANGIO W AND WO IV CONTRAST (06/12/2025 3:01 PM EDT) Anatomical Region Laterality Modality Computed Tomogra phy us Historical Provider MD CHAVEZ CT PROCEDURES Final R esult documented in this encounter Visit Diagnoses Not on filedocumented in this encounter Additional Health Concerns Assessment Noted Time PHQ-9 Depression Total Score: 3 01/17/20 25 11:40 AM EDT documented as of this encounter Care Teams Bumper Operator Relationship Specialty Start Date End Date Ab Pelaez MD [address] [place] [phone] PCP - General Internal Medicine 05/25/25 documented as of this encounter
--- OUTSIDE RECORDS SUMMARY | 2025-07-07 14:51 | XMS_ITS | Encounter Summary ---
Author Organization [employer] Address 75 [facility] 7t [place] [address] Care Team Providers Care Vest Maker Name Role Phone Ab Pelaez MD Primary Care Prov ider Encounter Details Date Type Department Care Team (Late st Contact Info) Description 06/12/2025 Orders Only [facility] [address] [place] [address] Provider, MD Mariam Social History Tobacco Use [...] Diagnosis Comments XR CHEST 2 VIEWS Routine 06/12/2025 4:17 PM EDT documented in this encounter Results * XR Chest 2 Views (06/12/2025 4:17 PM EDT) Anatomical Region Laterality Modality Chest Radiographic Adrienne ging Historical Provider MD CHAVEZ XR PROCEDURES Final R esult documented in this encounter Visit Diagnoses Not on filedocumented in this encounter Additional Health Concerns Assessment Noted Time PHQ-9 Depression Total Score: 3 01/17/20 25 11:40 AM EDT documented as of this encounter Care Teams Vest Maker Relationship Specialty Start Date End Date Ab Pelaez MD [address] [place] [phone] PCP - General Internal Medicine 05/25/25 documented as of this encounter
--- OUTSIDE RECORDS SUMMARY | 2025-07-07 14:51 | XMS_ITS | Clinical Summary ---
Author Organization [employer] Address 75 [facility] 7t [place] [address] Care Team Providers Care Supervisor Propellant Charge Loading Name Role Phone Ab Pelaez MD Primary Care Prov ider Allergies No known active allergies Medications albuterol (2.5 MG/3ML) 0.083% nebulizer solution Inhale 3 mL every 8 (eight) hours. 1 Active azelastine (Astelin) 0.1 % nasal sprayIndication s:Allergy, sequela Administer 2 sprays into each nostril 2 times daily. Use in each nostril as directed 30 mL 2 3 Active albuterol (ProAir HFA) 108 (90 Base) MCG/ACT inhalerIndicati ons:Allergy, sequela Inhale 2 puffs every 4 (four) hours if needed for wheezing. 18 g 1 3 Active famotidine (Pepcid) 40 MG tablet TAKE 1 TABLET BY MOUTH EVERY DAY AT BEDTIME 90 tablet 3 3 Active EPINEPHrine (Epipen) 0.3 MG/0.3ML injection syringe Inject 0.3 mL (0.3 mg) as directed 1 (one) time if needed for anaphylaxis. Inject into upper leg. Call 911 after use. 2 each 4 Active diphenhydrAMINE (Banophen) 25 MG capsuleIndicati ons:Allergy, sequela TAKE ONE CAPSULE BY MOUTH EVERY NIGHT AT BEDTIME NEEDED FOR ALLERGIES 30 capsule 3 4 Active buPROPion SR (Wellbutrin SR) 100 MG 12 hr tablet TAKE 1 TABLET BY MOUTH IN THE MORNING AND AT 2 PM 4 Active Diclofenac Sodium (Voltaren) 1 % gelIndications: Musculoskeletal pain Use topical BID 100 g 3 5 Active ergocalciferol (Vitamin D2) 1.25 MG (61382 UT) capsule Take 1 capsule (1.25 mg) by mouth 1 (one) time per week. 5 capsule 3 5 Active Ketotifen Fumarate 0.035 % solution Administer 1 drop into affected eye(s) if needed in the morning and at bedtime (eye redness, itching). 10 mL 2 5 Active FLUoxetine (PROzac) 10 MG capsule Take 10 mg by mouth Once per day. Active melatonin 10 MG tablet Take 10 mg by mouth at bedtime. Active cetirizine (ZyrTEC) 10 MG tablet Take 1 tablet (10 mg) by mouth Once per day. 30 tablet 11 5 05/25/20 26 Active hydrOXYzine pamoate (Vistaril) 25 MG capsule TAKE ONE OR TWO CAPSULES AT BEDTIME 5 Active ibuprofen 600 MG tablet Take 1 tablet (600 mg) by mouth 3 times daily. 90 tablet 5 06/24/20 25 Hospital, Clinic, or Other Facility Administered Medication Ordered Dose Route Frequency Start Date End Date Status Levonorgestrel intrauterine device 20.1 mcg/dayIndications:En counter for removal and reinsertion of intrauterine contraceptive device 20.1 mcg/day IU Once PRN Procedure 06/11/2025 06/11/2025 Ended Active Problems Problem Noted Date Diagnosed Date Severe anxiety with panic 06/15/2025 Class 1 obesity 10/06/2024 Assessment & Plan [...] Encounters Date Type Department Care Team Description 07/06/2025 2:15 PM EST Telemedicine [facility] CHC MED & PEDS [address] [place] [address] Ab Pelaez MD Obesity (BMI 30.0-34.9) (Primary Dx) 07/06/2025 Travel 07/03/[address] [address] Ab Pelaez MD Lab Orders 07/03/[address] [address] Ab Pelaez MD Nurse Triage 06/16/2025 Orders Only [facility] [address] [place] [address] Mariam Phelps MD 06/16/2025 Results Follow-Up [facility] MED & PEDS [address] [place] [address] Maurice Borrego CNP POCT , urine manually resulted, Pap Smear 06/15/2025 3:20 PM EDT Office Visit [facility] MED & PEDS [address] [place] [address] Tara Horan MD Severe anxiety with panic (Primary Dx) 06/15/2025 Travel 06/15/[address] [address] Ab Pelaez MD ed 06/15/2025 Orders Only [facility] MED & PEDS [address] [place] [address] Mariam Phelps MD 06/12/2025 Orders Only [facility] [address] [place] [address] Mariam Phelps MD 06/11/2025 9:30 AM EDT Procedure Visit [facility] MED & PEDS [address] [place] [address] Maurice Borrego CNP Urine test negative (Primary Dx); Encounter for cervical Pap smear with pelvic exam; Encounter for removal and reinsertion of intrauterine contraceptive device 06/11/2025 Orders Only [facility] MED & PEDS [address] [place] [address] Maurice Borrego CNP 06/11/2025 Travel 06/09/2025 Telephone [facility] MED [facility] PEDS [address] [place] [address] Ab Pelaez MD chart prep 06/03/2025 Orders Only [facility] CHC MED & PEDS [address] [place] [address] Mariam Phelps MD 06/01/2025 Orders Only [facility] [address] [place] [address] Mariam Phelps MD 05/25/2025 1:45 PM EDT Telemedicine [facility] MED & PEDS [address] [place] [address] Ab Pelaez MD Class 1 obesity (Primary Dx); Anxiety; Allergy, sequela 05/25/2025 Travel 05/18/2025 Travel 05/08/2025 Telephone [facility] MED & PEDS [address] [place] [address] Flavia Haile MD Nurse Triage 04/24/2025 Telephone [facility] MED & PEDS [address] [place] [address] Flavia Haile MD chart prep 04/24/2025 Telephone [facility] MED & PEDS [address] [place] [address] Flavia Haile MD 04/24/2025 Orders Only [facility] MED & PEDS [address] [place] [address] Flavia Haile MD 04/23/2025 Telephone [facility] MEDICINE [address] [place] [phone] Flavia Haile MD Prior Authorization from Last 3 Months Immunizations Immunization Administration [...] Sign Reading Time Taken Comments Blood Pressure 112/70 06/15/2025 3:25 PM EDT Pulse 72 06/15/2025 3:25 PM EDT Temperature 36.5 C (97.7 F) 06/15/2025 3:25 PM EDT Respiratory Rate 20 06/15/2025 3:25 PM EDT Oxygen Saturation 98% 06/11/2025 9:49 AM EDT Inhaled Oxygen Concentration - - Weight 72.6 kg (160 lb) 06/15/2025 3:25 PM EDT Height 159.4 cm (5' 2.75 ) 06/11/2025 9:49 AM ED T Body Mass Index 28.57 06/11/2025 9:49 AM EDT Plan of Treatment Health Maintenance Due Date Last Done Comments HIV Screening 1985 Family Planning (PISQ) 2001 HPV Vaccines (1 - 3-dose series) 2001 Hepatitis B Vaccines (1 of 3 - 19+ 3-dose series) 2005 Pneumococcal Vaccine: Pediatrics (0 to 5 Years) and At-Risk Patients (6 to 49) Years (1 of 2 - PCV) 2005 COVID-19 Vaccine ( - season) 2025 09/13/2021, 02/02/2021, 01/08/2021 Influenza Vaccine (#1) 2025 , 06/30/2021, 05/21/2019, Additional history exists Depression Screening 01/16/2026 01/16/2025, 01/17/20 SDOH Screening 01/16/2026 01/16/2025 Disability Screening 05/18/2026 05/18/2025 Alcohol/Substance Use Screening 05/25/2026 05/25/2025 Tobacco Screening 06/15/2026 06/15/2025 DTaP/Tdap/Td Vaccines (3 - Td or Tdap) 07/04/2026 07/04/2016, 08/05/2011 Lipid Panel 12/10/2028 12/11/2023, 10/13/2022 Cervical Cancer Screening 06/11/2030 HPV/Cotest 06/11/2030 06/11/2025 Pap Smear 06/11/2030 06/11/2025 Zoster Vaccines (1 of 2) 2036 RSV [...] 07/07/2025 1:05 PM EST Obesity (BMI 30.0-34.9) XR CHEST 2 VIEWS Routine 06/12/2025 4:[address] CHEST ANGIO W AND WO IV CONTRAST Routine 06/12/2025 3:01 PM EDT ECG 12-LEAD Routine 06/12/2025 11:28 AM EDT ECG 12-LEAD Routine 06/12/2025 9:24 AM EDT PAP SMEAR Routine 06/11/2025 11:00 AM EDT Encounter for cervical Pap smear with pelvic exam HPV DNA, LOW/HIGH RISK Routine 06/11/2025 11:00 AM EDT POCT , URINE Routine 06/11/2025 10:16 AM [...] Recently Relevant to Health Maintenance Results * (ABNORMAL) CBC auto differential (07/07/2025 1:05 PM EST) White Blood Count 6.5 4.8 - 10.8 X10*3/uL [facility] Red Blood Count 3.91(L) 4.20 - 5.50 X10*6/uL [facility] Hemoglobin 12.8 12.0 - 16.0 g/dl [facility] Hematocrit 38.9 37.0 - 47.0 % [facility] Mean Corpuscular Volume 99.5(H) 80.0 - 98.0 fL [facility] Mean Corpuscular Hemoglobin 32.7 27.0 - 33.0 pg [facility] Mean Corpuscular HGB Conc 32.9 31.0 - 35.0 g/dl [facility] Red Cell Distribution Width 11.8 11.0 - 16.0 % [facility] Platelet Count 221 160 - 400 X10*3/uL [facility] Mean Platelet Volume 11.9 9.4 - 12.3 fL [facility] Neutrophils Percent Auto 64.2 45 - 73 % [facility] Imm Gran Pct Auto 0.3 0.0 - 0.4 % [facility] Lymphocytes Percent Auto 25.9 20 - 40 % [facility] Monocytes Percent Auto 7.5 2 - 11 % [facility] Eosinophils Percent Auto 1.2 0 - 4 % [facility] Basophils Percent Auto 0.9 0 - 2 % [facility] NRBC Pct Auto 0.0 0.0 - 0.2 /100WBC [facility] Neutrophils Absolute Auto 4.2 2.0 - 8.3 x10*3/uL [facility] Imm Gran Abs Auto 0.02 0.00 - 0.03 X10*3/uL [facility] Lymphocytes Absolute Auto 1.7 1.2 - 4.9 X10*3/uL [facility] Monocytes Absolute Auto 0.5 0.1 - 1.2 X10*3/uL [facility] Eosinophils Absolute Auto 0.1 0.0 - 0.4 X10*3/uL [facility] Basophils Absolute Auto 0.1 0.0 - 0.2 X10*3/uL [facility] NRBC Abs Auto 0.000 0.0 - 0.012 X10*3/uL [facility] Blood Venous blood specimen / Unknown 07/07/2025 1:05 PM EST 07/07/2025 2:10 PM EST Result [facility] Ab Cast MD LAB BLOOD ORDERABL ES Final Result [facility] [address] [place] [phone] * XR Chest 2 Views (06/12/2025 4:17 PM EDT) Only the most recent of2 resultswithin the time period is included. Anatomical Region Laterality Modality Chest Radiographic Adrienne ging Result [facility] Historical Provider IMG XR PROCEDURES Final R esult * CT CHEST ANGIO W AND WO IV CONTRAST (06/12/2025 3:01 PM EDT) Anatomical Region Laterality Modality Computed Tomogra phy Result [facility] Historical Provider IMG CT PROCEDURES Final R esult * ECG 12 lead (06/12/2025 11:28 AM EDT) Only the most recent of3 resultswithin the time period is included. Result [facility] Historical Provider ECG ORDERABLES Final Res ult * HPV DNA, Low/High Risk (06/11/2025 11:00 AM EDT) HPV High Risk Negative Negative [facility] HPV Genotype 16 Negative Negative [facility] HPV Genotype 18 Negative Negative [facility] Comment:HPV testing performe d at [facility] (CLIA#[id number]), [address] [place] [phone].Testing for HPV was performed using the [employer] 6800system. The presence of HPV in the female genital tract isassociated with a number of diseases, including cervicalcarcinoma. The HPV DNA high risk pool tests for HPV 31, 33,35, 39, 45, 51, 52, 56, 58, 59, 66 and 68. The testing forHPV 16 and 18 genotypes has also been performed. A positiveresult indicates detection of nucleic acid sequences fromone or more subtypes, whereas a negative result indicatessuch sequences were not detected. 06/11/2025 11:0 0 AM EDT 06/12/2025 6:00 AM EDT Maurice Borrego [facility] LAB BLOOD ORDERABLES Eva l Result [facility] [address] [place] [phone] * Pap Smear (06/11/2025 11:00 AM EDT) Swab 06/11/2025 11:0 0 AM EDT 06/12/2025 6:00 AM EDT Narrative [facility] - 06/16/2025 11:00 AM EDT ----- ------- Name: Sincere Cormier Age/Sex: 40/F : 1985 Unit#: [id number] Attend Dr: Maurice Borrego NP Re06/11/25 Status: DEP REF Location: [facility] Disch: ----- ------- SPEC : [id number] RECD: 06/12/25 STATUS: ALIX CATHERINE NUM: [id number] NIECY: 06/11/[address] [facility] [address]: Maurice Borrego NP ENTERED: 06/12/25 SP TYPE: Pap Smr OTHR DR: ORDERED: Pap Smear Interpretation Satisfactory for evaluation. Negative for intraepithelial lesion or malignancy. No endocervical cells seen. HPV High Risk: Negative HPV Genotyping 16: Negative HPV Genotyping 18: Negative Clinical Information LMP: IUD Previous PAP test: 11/2018 results not confirmed, pt denies any abnormal paps Other surgery: Other history: Material Received ThinPrep-Cervical ----- ------- Signed (signature on file) HERNAN Grayson (ASCP) 06/16/25 1100 ----- ------- END OF REPORT us Maurice Borrego [facility] LAB CYTOLOGY ORDERABLES F inal Result [facility] [address] [place] [phone] * POCT , urine manually resulted (06/11/2025 10:16 AM EDT) Preg Test, Ur Negative Negative, Indeterminate, None Detected, Invalid, Specimen unsatisfactory for evaluation, Weakly Positive, 2+ QC Media Lot # Comment:[id number] Lot# Expiration Date Comment:12/06/2025 QC TEST Comment:pass Urine 06/11/2025 10:1 6 AM EDT Maurice Borrego [facility] POINT OF CARE TEST ENTER/ EDIT ORDERABLES Final Result * TX INSERTION INTRAUTERINE DEVICE IUD, TX REMOVAL INTRAUTERINE DEVICE IUD (06/11/2025 9:30 AM EDT) Narrative Maurice Borrego CNP - 06/11/2025 9:30 AM EDT Maurice Borrego CNP 06/11/2025 11:58 AM IUD Management Performed by: Janae Lou MD Authorized by: Maurice Borrego CNP Procedure: IUD removal and insertion Procedure comment: Load Builder and assistance provided by Janae Lou MD Consent obtained by patient, parent, or legal power of divorce attorney - including discussion of procedure risks [...] IN CLINIC/BEDSIDE ORDERAB LES Final Result * Hepatitis C Antibody with Reflex to HCV, RNA, Quantitative, Real-Time PCR (12/11/2023 11:09 AM EDT) Hepatitis C Antibody Nonreactive Nonreactive [facility] Comment:Antibodies to HCV no t detected; does not exclude early acuteHCV infection. Blood Venous blood specimen / Unknown 12/11/2023 11:09 AM EDT 12/11/2023 2:26 PM EDT Flavia Haile MD LAB BLOOD ORDERABLES Final Resul t [facility] [address] [place] [phone] * (ABNORMAL) Lipid Panel, Standard (12/11/2023 11:09 AM EDT) Triglycerides 75 <150 mg/dL [facility] Comment:Desirable Triglyceri de: less than 150 mg/dLBorderline High Triglyceride 150-199 mg/dLHigh Triglyceride: 200-499 mg/dLVery High Triglyceride: greater than or equal to 5OO mg/dL Cholesterol 157 <200 mg/dL [facility] Comment:Desirable Cholestero l: less than 200 mg/dLBorderline High Cholesterol: 200-239 mg/dLHigh Cholesterol: greater than 239 mg/dL LDL Cholesterol Calculated 107(H) <100 mg/dL [facility] Comment:Desirable LDL: less than 100 mg/dLNear Optimal/Above Optimal LDL: 110- 129 mg/dLBorderline High LDL: 130-159 mg/dLHigh LDL: 160-189 mg/dLVery High LDL: greater than or equal to 190 mg/dL HDL Cholesterol 35(L) >40 mg/dL [facility] Comment:Desirable HDL: great er than 40 mg/dL Note: This HDL assay may give artificially low results in patients with liver disease. Blood Venous blood specimen / Unknown 12/11/2023 11:09 AM EDT 12/11/2023 2:26 PM EDT us Flavia Haile MD LAB BLOOD ORDERABLES Final Resul t [facility] [address] [place] [phone] [phone] from Last 3 Months or Most Recently Relevant to Health Maintenance Insurance 2 GENERIC OTHER Care Teams Supervisor Propellant Charge Loading Relationship Specialty Start Date End Date Ab Pelaez MD [address] [place] [phone] PCP - General Internal Medicine 05/25/25
--- OUTSIDE RECORDS SUMMARY | 2025-07-07 14:51 | XMS_ITS | Encounter Summary ---
Author Organization [employer] Address [address] [facility] 7t [place] [address] Care Team Providers Care Crime Scene Technician Name Role Phone Flavia Haile MD Primary Care Provider [phone] Ab Pelaez MD Primary Care Prov ider Reason for Visit * Reason Comments Med Refill Encounter Details Date Type Department Care Team ([facility] st Contact Info) Description 05/22/2023 Refill [facility] PEDS [address] [place] [address] Venecia Carty MD [address] [place] [address] Social History Tobacco Use Types Packs/Day Years [...] documented as of this encounter Care Teams Crime Scene Technician Relationship Specialty Start Date End Date Flavia Haile MD [address] [place] [phone] PCP - General Family Medicine 07/04/16 05/24/25 Ab Pelaez MD [address] [place] [phone] PCP - General Internal Medicine 05/25/25 documented as of this encounter
--- OUTSIDE RECORDS SUMMARY | 2025-07-07 14:51 | XMS_ITS | Encounter Summary ---
Author Organization [employer] Address [address] [facility] [address] [place] [address] Care Team Providers Care Letter Carrier Name Role Phone Flavia Haile MD Primary Care Provider [phone] Ab Pelaez MD Primary Care Prov ider Encounter Details Date Type Department Care Team (Late st Contact Info) Description 04/24/2025 Orders Only [facility] MED [facility] PEDS [address] [place], [place] [phone] Flavia Haile MD [address] [place] [address] Social History Tobacco Use Types Packs/Day Years [...] documented as of this encounter Care Teams Letter Carrier Relationship Specialty Start Date End Date Flavia Haile MD [address] [place] [address] PCP - General Family Medicine 07/04/16 05/24/25 Ab Pelaez MD [address] [place] [id number] PCP - General Internal Medicine 05/25/25 documented as of this encounter
--- OUTSIDE RECORDS SUMMARY | 2025-07-07 14:51 | XMS_ITS | Encounter Summary ---
Author Organization [employer] Address [address] [facility] [address] [place] [address] Care Team Providers Care Heater Engineer Helper Name Role Phone Ab Pelaez MD Primary Care Prov ider Encounter Details Date Type Department Care Team ([facility] st Contact Info) Description 06/16/2025 Results Follow-Up [facility] MED & PEDS [address] [place], [place] [phone] Maurice Borrego, BROADCAST MAINTENANCE TECHNICIAN [address] [place] [address] POCT , urine manually resulted, Pap Smear Social History Tobacco Use Types Packs/Day Years [...] documented as of this encounter Care Teams Heater Engineer Helper Relationship Specialty Start Date End Date Ab Pelaez MD [address] [place] [id number] PCP - General Internal Medicine 05/25/25 documented as of this encounter
--- OUTSIDE RECORDS SUMMARY | 2025-07-07 14:51 | XMS_ITS | Encounter Summary ---
Author Organization [employer] Address [address] [facility] [address] [place] [address] Care Team Providers Care Dermatopathologist Name Role Phone Ab Pelaez MD Primary Care Prov ider Encounter Details Date Type Department Care Team (Late st Contact Info) Description 06/15/2025 Orders Only [facility] MED & PEDS [address] [place] [address] Provider, MD Mariam Social History Tobacco Use [...] Date/Time Associated Diagnosis Comments ECG 12-LEAD Routine 06/12/2025 11:28 AM EDT ECG 12-LEAD Routine 06/12/2025 9:24 AM EDT documented in this encounter Results * ECG 12 lead (06/12/2025 11:28 AM EDT) us Historical Provider ECG ORDERABLES Final Res ult * ECG 12 lead (06/12/2025 9:24 AM EDT) us Historical Provider ECG ORDERABLES Final Res ult documented in this encounter Visit Diagnoses Not on filedocumented in this encounter Additional Health Concerns Assessment Noted Time PHQ-9 Depression Total Score: 3 01/17/20 25 11:40 AM EDT documented as of this encounter Care Teams Dermatopathologist Relationship Specialty Start Date End Date Ab Pelaez MD [address] [place] [address] PCP - General Internal Medicine 05/25/25 documented as of this encounter
--- OUTSIDE RECORDS SUMMARY | 2025-07-07 14:51 | XMS_ITS | Encounter Summary ---
Author Organization [employer] Address [address] [facility] [address] [place] [address] Care Team Providers Care Math And Science Division Chair Name Role Phone Flavia Haile MD Primary Care Provider Ab Pelaez MD Primary Care Prov ider Reason for Visit * Reason Onset Date Comments Nurse Triage 01/28/2025 Encounter Details Date Type Department Care Team (Late st Contact Info) Description 01/28/2025 Telephone [facility] MEDICINE [address] [place] [address] Flavia Haile MD [address] [place] [address] Nurse Triage Social History Tobacco Use Types [...] 10:52 AM EDT Triage call with [facility] Coordinator , [place] [address] Pt reports possible hemorrhoids which have been [...] acuity questions The caller accepted this outcome. [phone] croatian documented in this encounter Plan of Treatment Not on file documented as of this encounter Visit Diagnoses Not on filedocumented in this encounter Additional Health Concerns Assessment Noted Time PHQ-9 Depression Total Score: 3 01/17/20 11:40 AM EDT documented as of this encounter Care Teams Math And Science Division Chair Relationship Specialty Start Date End Date Flavia Haile MD [address] [place] [id number] PCP - General Family Medicine 07/04/16 05/24/25 Ab Pelaez MD [address] [place] [id number] PCP - General Internal Medicine 05/25/25 documented as of this encounter
[2025-07-07 15:03] LABS: Iron 170 mcg/dL (30-160); Percent Iron Saturation 73 % (15-50); Total Iron Binding Capacity 234 mcg/dL (228-428); Unsaturated Iron Binding 64 ug/dL
[2025-07-07 15:24] LABS: Folate 10.5 ng/mL (> or = 4.0); Vitamin B12 423 pg/mL (200-900)
== END 2025-07-07 13:05 | disposition home or self-care (01) ==
LOC: HO.CHCLDS 13:04
PROVIDERS: Visit Provider Internal Medicine
DX: E66.811 Obesity, class 1 (principal); Z13.29 Encounter for screening for other suspected endocrine disorder; Z13.0 Encounter for screening for diseases of the blood and blood-forming organs and certain disorders involving the immune mechanism
CPT/HCPCS: 36415; 82607; 82746; 83540; 84443; 85025